=== PATIENT | female | born 1955 | race Caucasian/White ===

== ENCOUNTER → 2017-01-02 | Outpatient (CLI) | payer MEDICARE, MEDICAID ==
[2017-01-02 12:46] LABS: Basophils # (A) 0.1 k/uL (0-0.2); Basophils % (A) 1 %; CH 31.9; CHCM 32.6; Eosinophils # (A) 0.4 k/uL (0-0.7); Eosinophils % (A) 5 %; HCT 44.5 % (34.0-46.0); HDW 2.65; HGB 14.7 gm/dL (11.4-16.0); Luc # (Auto) 0.26; Luc % (Auto) 3; Lymphocytes # (A) 1.7 k/uL (1.0-4.8); Lymphocytes % (A) 19 %; MCH 32.5 pg (25.0-35.0); MCHC 33.1 g/dL (31.0-37.0); MCV 98.2 fL (80.0-100.0); Mean Platelet Volume 7.2; Monocytes # (A) 0.3 k/uL (0-1.0); Monocytes % (A) 4 %; Neutrophils # (A) 5.9 k/uL (1.3-7.7); Neutrophils % (A) 68 %; RBC 4.53 m/uL (3.80-5.40); RDW 13.3 % (11.5-15.5); WBC 8.6 k/uL (3.8-10.6); WBC (Perox) 8.66
[2017-01-02 12:57] LABS: ALT 49 U/L (9-52); AST 38 U/L (14-36); Alkaline Phosphatase 90 U/L (38-126); Anion Gap 9 mmol/L; Blood Urea Nitrogen 13 mg/dL (7-17); Calcium 9.8 mg/dL (8.4-10.2); Carbon Dioxide 31 mmol/L (22-30); Chloride 97 mmol/L (98-107); Glucose 89 mg/dL (74-99); Non-African American GFR(MDRD) >60 (>60 ml/min/1.73 sqM); Potassium 4.6 mmol/L (3.5-5.1); Sodium 137 mmol/L (137-145); Total Bilirubin 0.4 mg/dL (0.2-1.3)
== END | disposition home or self-care (01) ==
LOC: LABWHC1 12:09
PROVIDERS: ATTEND Family Medicine
DX: E03.9 Hypothyroidism, unspecified (principal); E55.9 Vitamin D deficiency, unspecified; M79.7 Fibromyalgia
CPT/HCPCS: 36415; 80053; 82306; 84443; 85025

== ENCOUNTER → 2017-01-14 | Outpatient (CLI) | payer MEDICARE, MEDICAID ==
--- NOTE | 2017-01-14 17:01 | BD ---
EXAMINATION TYPE: MG DEXA axial skeleton. DATE OF EXAM: 01/14/2017 4:03 PM COMPARISON: 2013 CLINICAL HISTORY: 61-year-old female POST MENOPAUSAL Height: 5'2 Weight: 103 FRAX RISK QUESTIONS: Alcohol (3 or more units per day): no Family History (Parent hip fracture): no Glucocorticoids (More than 3mos): no (Ex: prednisone, prednisolone, methylprednisolone, dexamethasone, and hydrocortisone). History of Fracture in Adulthood: yes Secondary Osteoporosis: 1. Type 1 Diabetes: no 2. Hyperthyroidism: no 3. Menopause before 45: yes 4. Malnutrition: yes 5. Chronic liver disease: no Rheumatoid Arthritis: no Current Tobacco Use: no RISK FACTORS HISTORY OF: History of Wrist Fracture: When: child Family History of Osteoporosis: Postmenopausal woman: Poor Health: MEDICATIONS: Thyroid Medications: Which medication: Levothyroxine How Lon years Osteoporosis Medications: Which medication: Other nasal spray How Lon years Additional Medications: heart medicine, antidepressant, neurontin, pain Additional History: EXAM MEASUREMENTS: Bone mineral densitometry was performed using the [facility]. Bone mineral density as measured about the Lumbar spine is: ----- L1-L4(G/cm2): 0.817 T Score Values are as follows: ----- L2: -3.2 ----- L3: -3.1 ----- L4: -2.9 ----- L1-L4: -3.0 Bone mineral density has: Decreased -5.8% since study of: 01/22/2014 Bone mineral density about the R hip (g/cm2): 0.513 Bone mineral density about the L hip (g/cm2): 0.577 T Score values are as follows: -----R Neck: -3.8 -----L Neck: -3.3 -----R Intertrochanter: -4.0 -----L Intertrochanter: -4.1 Bone mineral density has: Decreased -0.9% since study of: 01/22/2014 IMPRESSION: Osteoporosis as indicated by T score values in the lumbar spine and both hips. There is increased fracture risk and therapy is usually indicated based on age. Re-Screen 1-2 years. NOTE: T-SCORE=SD OF THE YOUNG ADULT MEAN.
--- NOTE | 2017-01-15 11:27 | MM ---
Reason for exam: screening (asymptomatic). Last mammogram was performed 3 years and 6 months ago. History: Patient is postmenopausal and had first child at age 32. 2 cyst aspirations of the left breast. 3 cyst aspirations of the right breast. Excisional biopsy of the left breast. Took estrogen for 5 months. Physical Findings: A clinical breast exam by your physician is recommended on an annual basis and results should be correlated with mammographic findings. MG Screening Mammo w CAD Bilateral CC and MLO view(s) were taken. Prior study comparison: July 09, 2013, bilateral digital screening mammo w/CAD. January 26, 2010, bilateral digital screening mammogram. There are scattered fibroglandular densities. There is no discrete abnormality. No significant changes when compared with prior studies. ASSESSMENT: Negative, BI-RAD 1 RECOMMENDATION: Routine screening mammogram of both breasts in 1 year.
== END | disposition home or self-care (01) ==
LOC: RADMAMWWP 15:16
PROVIDERS: ATTEND Family Medicine
DX: Z12.31 Encounter for screening mammogram for malignant neoplasm of breast (principal); M81.0 Age-related osteoporosis without current pathological fracture; Z78.0 Asymptomatic menopausal state
CPT/HCPCS: 77080; G0202; 99214

== ENCOUNTER → 2017-02-12 | Outpatient (CLI) | payer MEDICARE, MEDICAID | END | disposition home or self-care (01) | LOC: LABWHC1 08:40 | PROVIDERS: ATTEND Family Medicine | DX: E53.8 Deficiency of other specified B group vitamins (principal); Z13.220 Encounter for screening for lipoid disorders; Z90.3 Acquired absence of stomach [part of] | CPT/HCPCS: 36415; 80061; 82607; 82746 ==

== ENCOUNTER → 2017-02-14 | Outpatient (CLI) | payer MEDICARE, MEDICAID | END | disposition home or self-care (01) | LOC: LABWHC1 06:50 | PROVIDERS: ATTEND Family Medicine | DX: Z48.815 Encounter for surgical aftercare following surgery on the digestive system (principal); Z90.3 Acquired absence of stomach [part of] | CPT/HCPCS: 36415; 82747 ==

== ENCOUNTER 2017-04-18 09:52 | Emergency (ER) | payer MEDICARE, MEDICAID ==
[2017-04-18 10:02] VITALS: RESP 18
[2017-04-18] MEDS ORDERED: HYDROcodone/APAP 10-325MG 1 EACH TAB PO ONE (10:17)
--- NOTE | 2017-04-18 10:46 | ED ---
Fall HPI - General Chief Complaint: Fall Stated Complaint: Fall Time Seen by Provider: 04/18/17 10:13 Source: patient, RN notes reviewed, old records reviewed Mode of arrival: wheelchair - History of Present Illness Initial Comments: This is a pleasant 61-year-old female presenting to the emergency department after falling while in the hospital after leaving IV treatment. Patient reports that he fell, hit the left side of her face and cheek, but her lower lip and has an pain and swelling over the left elbow. Patient reports that she fell on her knees as well and reports some bruising, but was able to walk shortly afterwards. Patient was then transported from the [facility] to the emergency department. Patient states that she did not lose consciousness. She denies any specific headache. Patient states that she has no neck pain as well. Patient reports normal sensation over the wrist and hand. - Related Data Home Medications Medication Instructions Recorded Confirmed Cyclobenzaprine [Flexeril] 10 mg PO TID PRN 03/02/14 04/19/17 Diclofenac Potassium [Cataflam] 50 mg PO BID 03/02/14 04/19/17 Dicyclomine [Bentyl] 10 mg PO QID PRN 03/02/14 04/19/17 Fluticasone/Salmeterol [Advair 1 puff INHALATION RT-BID 03/02/14 04/19/17 500-50 Diskus] HYDROcodone/APAP 10-325MG [Dorena 1 tab PO QID 03/02/14 04/19/17 10-325] LORazepam [Ativan] 1 mg PO BID 03/02/14 04/19/17 Levalbuterol Hfa Inhaler [Xopenex 1 - 2 puff INHALATION RT-QID 03/02/14 04/19/17 Hfa Inhaler] Levothyroxine Sodium [Synthroid] 100 mcg PO DAILY 03/02/14 04/19/17 Prochlorperazine [Compazine] 10 mg PO Q8H PRN 03/02/14 04/19/17 Tiotropium 18 Mcg/Puff [Spiriva] 1 cap INHALATION RT-DAILY 03/02/14 04/19/17 traZODone HCL [Desyrel] 100 mg PO HS 03/02/14 04/19/17 Butalb/Asprin/Caff 50-325-40Mg 1 - 3 cap PO Q4HR PRN 09/14/15 04/19/17 [Fiorinal 50-325-40 MG] Calcitonin,[place],Synthetic 1 spray NS DAILY 09/14/15 04/19/17 [Miacalcin] DULoxetine HCL [Cymbalta] 60 mg PO QAM 09/14/15 04/19/17 Ibuprofen [Motrin] 200 - 400 mg PO Q6HR PRN 09/14/15 04/19/17 DULoxetine HCL [Cymbalta] 30 mg PO W/SUPPER 02/23/16 04/19/17 Gabapentin [Neurontin] 200 mg PO TID 06/15/16 04/19/17 Metoprolol Tartrate [Lopressor] 25 mg PO BID 04/18/17 04/19/17 Previous Rx's Medication Instructions Recorded Nystatin 100,000 Unit/ml Susp 500,000 unit PO QID #28 cup 09/21/16 [Mycostatin Oral Susp] HYDROcodone/APAP 10-325MG [[place] 1 tab PO Q4HR PRN #15 tab 04/18/17 10-325] Allergies Allergy/AdvReac Type Severity Reaction Status Date / Time metoclopramide HCl Allergy Severe Hallucinati Verified 04/19/17 09:21 [From Reglan] ons Penicillins Allergy Severe Rash/Hives Verified 04/19/17 09:21 piperacillin sodium Allergy Severe Unknown Verified 04/19/17 09:21 [From Zosyn] Sulfa (Sulfonamide Allergy Severe hives Verified 04/19/17 09:21 Antibiotics) tazobactam sodium Allergy Severe Unknown Verified 04/19/17 09:21 [From Zosyn] cimetidine Allergy Intermediate Rash/Hives Verified 04/19/17 09:21 cimetidine HCl [From Tagamet] Allergy Rash/Hives Verified 04/19/17 09:21 Review of Systems ROS Statement: Those systems with pertinent positive or pertinent negative responses have been documented in the HPI. ROS Other: All systems not noted in ROS Statement are negative. Past Medical History Past Medical History: Heart Failure, COPD, Fibromyalgia, GERD/Reflux, GI Bleed, Musculoskeletal Disorder, Osteoarthritis (OA), Pneumonia, Thyroid Disorder Additional Past Medical History / Comment(s): HX OF PEPTIC ULCER DISEASE 1992, 2006 DEVELOPED MALABSORPTION SYNDROME/DIARRHEA. Vitamin D deficiency. Migraines. Cardiomyopathy , protein calorie malnutrition. Cachexia. Osteoporosis. DDD cervical- lumbar spine. Recurrent Pneumonia, Bacterial Infections. MILD STROKE 2006 EST. 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 ON IV TPPN DAILY [id number]. History of Any Multi-Drug Resistant Organisms: MRSA Date of last positivie culture/infection: 2013 MDRO Source:: RT SUBCLAVIAN LINE AND SPUTUM CULTURE Past Surgical History: Adenoidectomy, Tonsillectomy Additional Past Surgical History / Comment(s): STOMACH SURGERY X 4 INCLUDES PARTAIL GASTRECTOMY, FOLLOWED BY TOTAL GASTRECTOMY/ESOPHAGECTOMY, FOLLOWED BY ANASTOMOSIS USING PART OF HER COLON,adhesion, reconstructed with bowel, Maria catheter placement and removal multiple times, PICC LINE 09/19/15. R SC mediport 06/2016 Past Anesthesia/Blood Transfusion Reactions: Motion Sickness Past Psychological History: Depression Smoking Status: Former smoker Past Alcohol Use History: None Reported Past Drug Use History: None Reported - Past Family History Mother Family Medical History: COPD, Myocardial Infarction ([place]) Father Family Medical History: Renal Disease Sister(s) Family Medical History: Respiratory Disorder Brother(s) Family Medical History: No Reported History Daughter(s) Family Medical History: No Reported History General Exam - General Exam Comments Initial Comments: Is a pleasant 61-year-old female. Patient does not appear to be in any acute distress. Limitations: no limitations General appearance: alert, in no apparent distress Head exam: Present: atraumatic, normocephalic, normal inspection Eye exam: Present: PERRL, EOMI, periorbital tenderness (Inferior left orbit tenderness.), other (Patient has some swelling and bruising over the left maxilla. No evidence of open lacerations. Asians tender to palpation over the inferior left orbit.). Absent: normal appearance, scleral icterus, conjunctival injection, periorbital swelling ENT exam: Present: mucous membranes moist, other (Patient has a 1 cm laceration over the left lower inner lip.). Absent: normal exam, normal oropharynx ( Patient wearis dentures.) Neck exam: Present: normal inspection. Absent: tenderness, meningismus, lymphadenopathy Respiratory exam: Present: normal lung sounds bilaterally. Absent: respiratory distress, wheezes, rales, rhonchi, stridor Cardiovascular Exam: Present: regular rate, normal rhythm, normal heart sounds. Absent: systolic murmur, diastolic murmur, rubs, gallop, clicks GI/Abdominal exam: Present: soft, normal bowel sounds. Absent: distended, tenderness, guarding, rebound, rigid Extremities exam: Present: normal capillary refill. Absent: normal inspection, full ROM, tenderness, pedal edema, joint swelling, calf tenderness Left Upper Arm exam: Present: normal inspection, full ROM Elbow exam: Present: tenderness, swelling (She has significant tenderness and swelling over the olecranon process.), ecchymosis. Absent: normal inspection, full ROM Forearm Wrist exam: Present: normal inspection, full ROM Hand Wrist exam: Present: normal inspection, full ROM Back exam: Present: normal inspection, full ROM Neurological exam: Present: alert, oriented X3, CN II-XII intact Psychiatric exam: Present: normal affect, normal mood Skin exam: Present: warm, dry, intact, normal color. Absent: rash Course Vital Signs 04/18/17 04/18/17 04/18/17 09:59 12:07 13:03 Temperature 97.0 F L 97.1 F L Pulse Rate 71 78 70 Respiratory 18 18 18 Rate Blood Pressure 113/53 101/57 98/54 O2 Sat by Pulse 99 96 97 Oximetry Procedures - Orthopedic Splinting/Casting Injury #1 Side: left Upper Extremity Immobilizer: posterior splint (in 45 degree angle. ) Medical Decision Making - Medical Decision Making This is a pleasant 61-year-old female presenting to the emergency department after tripping and falling while in the hospital after leaving IV treatment. Patient reports that he fell, hit the left side of her face and cheek, but her lower lip and has an pain and swelling over the left elbow. Patient reports that she fell on her knees as well and reports some bruising, but was able to walk shortly afterwards. Patient was then transported from the [facility] to the emergency department. Patient states that she did not lose consciousness. She was given Dorena 10 for pain. Patient received a CT facial bone and brain. Also left elbow x-rays. CT facial bornes and brain and negative for any acute process. Patient elbow xray has 1.6cm displacement of olecranon process. Discussed case with Olya Tabares, orthopedic PA. She adbised to place in a posterior 45 degree angle splint to cause less tension over triceps tendons. Patient needs to follow up with Dr. Gottlieb tomorrow. Patient agrees to treatent plan and was placed in the splint. Patient will be discharged with Pain medication. - Radiology Data Radiology results: report reviewed Intra-articular olecranon fracture discharged by 1.67 m. Large overlying soft tissue hematoma. Disposition Clinical Impression: Olecranon fracture, Facial contusion Disposition: HOME SELF-CARE Condition: Good Instructions: Fall Prevention for Older Adults (ED) Additional Instructions: Patient denies to follow-up with orthopedic physician as is possible. Return to the emergency department if any alarming signs or symptoms occur. Prescriptions: HYDROcodone/APAP 10-325MG [Dorena 10-325] 1 tab PO Q4HR PRN #15 tab PRN Reason: Pain Referrals: Javier Ledesma MD [Primary Care Provider] - 1-2 days Time of Disposition: 12:41
--- NOTE | 2017-04-18 11:41 | XR ---
EXAMINATION TYPE: XR elbow complete LT DATE OF EXAM: 04/18/2017 COMPARISON: NONE HISTORY: 61-year-old female fall and left elbow pain TECHNIQUE: 3 views FINDINGS: There is an intra-articular fracture of the olecranon with 1.6 cm of distraction. Large ove rlying soft tissue hematoma. Underlying elbow joint effusion suggested. IMPRESSION: Intra-articular olecranon fracture distracted by 1.6 cm. Large overlying soft tissue hematoma.
--- NOTE | 2017-04-18 11:54 | CT ---
EXAMINATION TYPE: CT brain wo con DATE OF EXAM: 04/18/2017 COMPARISON: 04/07/2011 HISTORY: 61-year-old female with pain after fall TECHNIQUE: Examination was done in axial plane without intravenous contrast. Coronal and sagittal r econstructions performed. CT DLP: 1121.01 mGycm Automated exposure control for dose reduction was used. FINDINGS: There is no evidence of acute intracranial hemorrhage, acute ischemic changes, mass, mass-effect, or extra-axial fluid collection. There is no effacement of cerebral sulci or basal subarachnoid cister ns. There is no hydrocephalus. There is no midline shift. Manzo-white matter distinction is preserv ed. There is moderate generalized supratentorial volume loss. Mucosal thickening within the mid right ethmoid air cells. Mastoid air cells well pneumatized. Orbits and globes are intact. IMPRESSION: No acute intracranial abnormality seen. Moderate generalized atrophy. Facial bones reported separately.
--- NOTE | 2017-04-18 12:07 | CT ---
EXAMINATION TYPE: CT facial bones wo con DATE OF EXAM: 04/18/2017 COMPARISON: NONE HISTORY: 60-year-old female with fall and hit left facial area. TECHNIQUE: Contiguous axial scanning of the facial bones without IV contrast. Coronal reconstructions performed. CT DLP: 587.45 mGycm Automated exposure control for dose reduction was used. FINDINGS: Focal opacification of a mid right ethmoid air cell. Otherwise, paranasal sinuses are clear. Orbits and globes are intact No nasal bone, facial bone, or mandibular fracture seen. Degenerative changes at the right TMJ IMPRESSION: RIGHT TMJ OA. NO ACUTE FACIAL BONE FRACTURE.
[2017-04-18] MEDS ORDERED: ACET/COD 300 MG/30 MG STARTER PACK 6 TAB BTL PO STA (12:59)
[2017-04-18 13:08] VITALS: BP 98/54; PULSE 70; TEMP 97.1
== END 2017-04-18 13:09 | disposition home or self-care (01) ==
LOC: EC 09:52
DX: S52.022A Displaced fracture of olecranon process without intraarticular extension of left ulna, initial encounter for closed fracture (principal); S01.511A Laceration without foreign body of lip, initial encounter; S00.83XA Contusion of other part of head, initial encounter; J44.9 Chronic obstructive pulmonary disease, unspecified; M19.90 Unspecified osteoarthritis, unspecified site; M81.0 Age-related osteoporosis without current pathological fracture; E07.9 Disorder of thyroid, unspecified; F32.9 Major depressive disorder, single episode, unspecified; M79.7 Fibromyalgia; Z87.891 Personal history of nicotine dependence; Z88.0 Allergy status to penicillin; Z88.2 Allergy status to sulfonamides; Z88.8 Allergy status to other drugs, medicaments and biological substances; Z79.51 Long term (current) use of inhaled steroids; Z79.891 Long term (current) use of opiate analgesic; Z79.899 Other long term (current) drug therapy; W01.198A Fall on same level from slipping, tripping and stumbling with subsequent striking against other object, initial encounter; Y92.239 Unspecified place in hospital as the place of occurrence of the external cause
CPT/HCPCS: 99285 ×2; 29105 ×2; 73080; 70486; 70450; 96365; J1335; J1642

== ENCOUNTER 2017-06-13 10:14 | Inpatient (IN) | payer MEDICARE, MEDICAID ==
[2017-06-13] MEDS ORDERED: IBUPROFEN 600 MG TAB PO STA (10:21)
[2017-06-13] MEDS ORDERED: SODIUM CHLORIDE 0.9% 1,000 ML IV STA ×2 (10:21)
[2017-06-13] MEDS ORDERED: ACETAMINOPHEN TAB 500 MG TAB PO STA (10:21)
[2017-06-13] MEDS ORDERED: IPRATROPIUM-ALBUTEROL 3 ML NEB INHALATION STA (10:22)
[2017-06-13] MEDS ORDERED: LEVOFLOXACIN 750MG-D5W PMX 750 MG in DEXTROSE/WATER 1 150ML.BAG IVPB STA (10:22)
--- NOTE | 2017-06-13 10:23 | ED ---
General Adult HPI - General Chief complaint: Fever Stated complaint: SOB, FLU LIKE SYMPTOMS Time Seen by Provider: 06/13/17 10:21 Source: patient, RN notes reviewed, old records reviewed Mode of arrival: wheelchair Limitations: no limitations - History of Present Illness Initial comments: This is a 58-year-old female here with severe shortness of breath, increasing and worsening shortness of breath. She notes fever and elevated heart rate. Patient's 4 strength in medical clinical condition, difficulty breathing. Patient denies any travel history, no significant recent hospitalizations. Because of Care medical history for breathing issues - Related Data Home Medications Medication Instructions Recorded Confirmed Cyclobenzaprine [Flexeril] 10 mg PO BID 03/02/14 06/13/17 Diclofenac Potassium [Cataflam] 50 mg PO TID 03/02/14 06/13/17 Fluticasone/Salmeterol [Advair 1 puff INHALATION RT-DAILY 03/02/14 06/13/17 500-50 Diskus] Levalbuterol Hfa Inhaler [Xopenex 1 - 2 puff INHALATION RT-QID 03/02/14 06/13/17 Hfa Inhaler] Levothyroxine Sodium [Synthroid] 100 mcg PO DAILY 03/02/14 06/13/17 Tiotropium 18 Mcg/Puff [Spiriva] 1 cap INHALATION RT-DAILY 03/02/14 06/13/17 traZODone HCL [Desyrel] 100 mg PO HS 03/02/14 06/13/17 Butalb/Asprin/Caff 50-325-40Mg 1 - 2 cap PO Q4HR PRN MDD 6 09/14/15 06/13/17 [Fiorinal 50-325-40 MG] tablets in 24 hours Calcitonin,[place],Synthetic 1 spray NS DAILY 09/14/15 06/13/17 [Miacalcin] DULoxetine HCL [Cymbalta] 60 mg PO QAM 09/14/15 06/13/17 DULoxetine HCL [Cymbalta] 30 mg PO HS 02/23/16 06/13/17 Gabapentin [Neurontin] 100 mg PO DAILY 06/15/16 06/13/17 Metoprolol Tartrate [Lopressor] 25 mg PO BID 04/18/17 06/13/17 Aspirin 81 mg PO DAILY 06/13/17 06/13/17 Biotin 10 mg PO DAILY 06/13/17 06/13/17 Cholecalciferol [Vitamin D3] 3,000 unit PO DAILY 06/13/17 06/13/17 Cyanocobalamin (Vitamin B-12) 1,000 mcg PO DAILY 06/13/17 06/13/17 [Vitamin B-12] Ergocalciferol (Vitamin D2) 50,000 unit PO Q30D 06/13/17 06/13/17 [Vitamin D2] Fluticasone Nasal [place] [Flonase 1 spray EA NOSTRIL DAILY PRN 06/13/17 06/13/17 Nasal [place]] Folic Acid 1 mg PO DAILY 06/13/17 06/13/17 Gabapentin [Neurontin] 200 mg PO DAILY@1400 06/13/17 06/13/17 Gabapentin [Neurontin] 300 mg PO DAILY@1800 06/13/17 06/13/17 HYDROcodone/APAP 10-325MG [[place] 1 tab PO TID PRN 06/13/17 06/13/17 10-325] LORazepam [Ativan] 1 mg PO BID PRN 06/13/17 06/13/17 Magnesium Oxide [Mag-Ox] 400 mg PO DAILY 06/13/17 06/13/17 Montelukast [Singulair] 10 mg PO HS 06/13/17 06/13/17 Multivitamins, Thera [Multivitamin 1 tab PO DAILY 06/13/17 06/13/17 (formulary)] Nystatin 100,000Unit/gm Cream 1 applic TOPICAL TID PRN 06/13/17 06/13/17 [Mycostatin Cream] Allergies Allergy/AdvReac Type Severity Reaction Status Date / Time metoclopramide HCl Allergy Severe Hallucinati Verified 06/13/17 11:04 [From Reglan] ons Penicillins Allergy Severe Rash/Hives Verified 06/13/17 11:04 piperacillin sodium Allergy Severe Unknown Verified 06/13/17 11:04 [From Zosyn] Sulfa (Sulfonamide Allergy Severe hives Verified 06/13/17 11:04 Antibiotics) tazobactam sodium Allergy Severe Unknown Verified 06/13/17 11:04 [From Zosyn] cimetidine Allergy Intermediate Rash/Hives Verified 06/13/17 11:04 cimetidine HCl [From Tagamet] Allergy Rash/Hives Verified 06/13/17 11:04 Review of Systems ROS Statement: Those systems with pertinent positive or pertinent negative responses have been documented in the HPI. ROS Other: All systems not noted in ROS Statement are negative. Past Medical History Past Medical History: Heart Failure, COPD, Fibromyalgia, GERD/Reflux, GI Bleed, Musculoskeletal Disorder, Osteoarthritis (OA), Pneumonia, Thyroid Disorder Additional Past Medical History / Comment(s): HX OF PEPTIC ULCER DISEASE 1992, 2006 DEVELOPED MALABSORPTION SYNDROME/DIARRHEA. Vitamin D deficiency. Migraines. Cardiomyopathy , protein calorie malnutrition. Cachexia. Osteoporosis. DDD cervical- lumbar spine. Recurrent Pneumonia, Bacterial Infections. MILD STROKE 2006 EST. 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 ON IV TPPN DAILY [id number]. History of Any Multi-Drug Resistant Organisms: MRSA Date of last positivie culture/infection: 2013 MDRO Source:: RT SUBCLAVIAN LINE AND SPUTUM CULTURE Past Surgical History: Adenoidectomy, Tonsillectomy Additional Past Surgical History / Comment(s): STOMACH SURGERY X 4 INCLUDES PARTAIL GASTRECTOMY, FOLLOWED BY TOTAL GASTRECTOMY/ESOPHAGECTOMY, FOLLOWED BY ANASTOMOSIS USING PART OF HER COLON,adhesion, reconstructed with bowel, Maria catheter placement and removal multiple times, PICC LINE 09/19/15. R SC mediport 06/2016 Past Anesthesia/Blood Transfusion Reactions: Motion Sickness Past Psychological History: Depression Smoking Status: Former smoker Past Alcohol Use History: None Reported Past Drug Use History: None Reported - Past Family History Mother Family Medical History: COPD, Myocardial Infarction ([place]) Father Family Medical History: Renal Disease Sister(s) Family Medical History: Respiratory Disorder Brother(s) Family Medical History: No Reported History Daughter(s) Family Medical History: No Reported History General Exam Limitations: no limitations General appearance: alert, anxious, in distress, cachectic Head exam: Present: atraumatic, normocephalic, normal inspection Eye exam: Present: normal appearance, PERRL, EOMI. Absent: scleral icterus, conjunctival injection, periorbital swelling ENT exam: Present: normal exam, mucous membranes moist Neck exam: Present: normal inspection. Absent: tenderness, meningismus, lymphadenopathy Respiratory exam: Present: respiratory distress, wheezes, accessory muscle use, decreased breath sounds, prolonged expiratory. Absent: rhonchi, stridor Cardiovascular Exam: Present: normal rhythm, tachycardia, normal heart sounds. Absent: systolic murmur, diastolic murmur, rubs, gallop, clicks GI/Abdominal exam: Present: soft, normal bowel sounds. Absent: distended, tenderness, guarding, rebound, rigid Extremities exam: Present: normal inspection, full ROM, normal capillary refill. Absent: tenderness, pedal edema, joint swelling, calf tenderness Back exam: Present: normal inspection Neurological exam: Present: alert, oriented X3, CN II-XII intact Psychiatric exam: Present: normal affect, normal mood Skin exam: Present: warm, dry, intact, normal color. Absent: rash Course Vital Signs 06/13/17 06/13/17 06/13/17 10: 10:45 10:59 Temperature 103.3 F H Pulse Rate 128 H 120 H 130 H Respiratory 18 Rate Blood Pressure 131/61 O2 Sat by Pulse 86 L Oximetry 06/13/17 11:31 Temperature 99.8 F H Pulse Rate 119 H Respiratory 24 Rate Blood Pressure 106/64 O2 Sat by Pulse 97 Oximetry - Reevaluation(s) Reevaluation #1: 06/13/17 11:57 Patient is no improvement after prolonged breathing treatment once placed on BiPAP patient is able to rest comfortably Medical Decision Making - Medical Decision Making 61 female year with pneumonia. Severe COPD exacerbation respiratory failure and shortness of breath secondary hypoxia. Patient be admitted for IV antibiotics to continue BiPAP. - Lab Data Result diagrams: 06/13/17 10:53 06/13/17 10:53 Lab Results 06/13/17 06/13/17 06/13/17 Range/Units 10:53 10:53 10:53 WBC 14.6 H (3.8-10.6) k/uL RBC 4.21 (3.80-5.40) m/uL Hgb 13.5 (11.4-16.0) gm/dL Hct 39.3 (34.0-46.0) % MCV 93.3 (80.0-100.0) fL MCH 32.0 (25.0-35.0) pg MCHC 34.3 (31.0-37.0) g/dL RDW 13.5 (11.5-15.5) % Plt Count 214 (150-450) k/uL Neutrophils % 95 % Lymphocytes % 2 % Monocytes % 2 % Eosinophils % 0 % Basophils % 0 % Neutrophils # 13.8 H (1.3-7.7) k/uL Lymphocytes # 0.3 L (1.0-4.8) k/uL Monocytes # 0.3 (0-1.0) k/uL Eosinophils # 0.0 (0-0.7) k/uL Basophils # 0.0 (0-0.2) k/uL PT (9.0-12.0) sec INR (<1.2) APTT (22.0-30.0) sec Sodium 124 L (137-145) mmol/L Potassium 3.4 L (3.5-5.1) mmol/L Chloride 90 L (98-107) mmol/L Carbon Dioxide 23 (22-30) mmol/L Anion Gap 11 mmol/L BUN 8 (7-17) mg/dL Creatinine 0.39 L (0.52-1.04) mg/dL Est GFR (MDRD) Af Amer >60 (>60 ml/min/1.73 sqM) Est GFR (MDRD) Non-Af >60 (>60 ml/min/1.73 sqM) Glucose 144 H (74-99) mg/dL Calcium 8.5 (8.4-10.2) mg/dL Phosphorus 1.7 L (2.5-4.5) mg/dL Magnesium 1.4 L (1.6-2.3) mg/dL Total Bilirubin 0.4 (0.2-1.3) mg/dL AST 51 H (14-36) U/L ALT 39 (9-52) U/L Alkaline Phosphatase 132 H (38-126) U/L Total Creatine Kinase 69 (30-135) U/L Total Protein 5.8 L (6.3-8.2) g/dL Albumin 3.3 L (3.5-5.0) g/dL 06/13/17 Range/Units 10:53 WBC (3.8-10.6) k/uL RBC (3.80-5.40) m/uL Hgb (11.4-16.0) gm/dL Hct (34.0-46.0) % MCV (80.0-100.0) fL MCH (25.0-35.0) pg MCHC (31.0-37.0) g/dL RDW (11.5-15.5) % Plt Count (150-450) k/uL Neutrophils % % Lymphocytes % % Monocytes % % Eosinophils % % Basophils % % Neutrophils # (1.3-7.7) k/uL Lymphocytes # (1.0-4.8) k/uL Monocytes # (0-1.0) k/uL Eosinophils # (0-0.7) k/uL Basophils # (0-0.2) k/uL PT 10.8 (9.0-12.0) sec INR 1.1 (<1.2) APTT 35.6 H (22.0-30.0) sec Sodium (137-145) mmol/L Potassium (3.5-5.1) mmol/L Chloride (98-107) mmol/L Carbon Dioxide (22-30) mmol/L Anion Gap mmol/L BUN (7-17) mg/dL Creatinine (0.52-1.04) mg/dL Est GFR (MDRD) Af Amer (>60 ml/min/1.73 sqM) Est GFR (MDRD) Non-Af (>60 ml/min/1.73 sqM) Glucose (74-99) mg/dL Calcium (8.4-10.2) mg/dL Phosphorus (2.5-4.5) mg/dL Magnesium (1.6-2.3) mg/dL Total Bilirubin (0.2-1.3) mg/dL AST (14-36) U/L ALT (9-52) U/L Alkaline Phosphatase (38-126) U/L Total Creatine Kinase (30-135) U/L Total Protein (6.3-8.2) g/dL Albumin (3.5-5.0) g/dL - Radiology Data Radiology results: report reviewed (Chest x-rays positive for pneumonia), image reviewed Critical Care Time Critical Care Time: Yes Total Critical Care Time: 31 Disposition Clinical Impression: Pneumonia, COPD (chronic obstructive pulmonary disease), Sepsis, Hypoxia Disposition: ADMITTED IP TO [facility] Condition: Serious Referrals: Javier Ledesma MD [Primary Care Provider] - 1-2 days
[2017-06-13 11:05] LABS: Basophils % (A) 0 %; CH 31.4; CHCM 33.8; Eosinophils % (A) 0 %; HCT 39.3 % (34.0-46.0); HGB 13.5 gm/dL (11.4-16.0); Luc # (Auto) 0.12; Luc % (Auto) 1; Lymphocytes # (A) 0.3 k/uL (1.0-4.8); Lymphocytes % (A) 2 %; MCHC 34.3 g/dL (31.0-37.0); MCV 93.3 fL (80.0-100.0); Monocytes # (A) 0.3 k/uL (0-1.0); Monocytes % (A) 2 %; Neutrophils # (A) 13.8 k/uL (1.3-7.7); Neutrophils % (A) 95 %; RBC 4.21 m/uL (3.80-5.40); RDW 13.5 % (11.5-15.5); WBC 14.6 k/uL (3.8-10.6); WBC (Perox) 14.59
[2017-06-13] MEDS ORDERED: LORazepam 2 MG/ML INJ IV STA (11:05)
[2017-06-13] MEDS ORDERED: MORPHINE SULFATE 4 MG/ML SYRINGE IVP STA (11:05)
[2017-06-13 11:13] LABS: INR 1.1 (<1.2); Partial Thromboplastin Time 35.6 sec (22.0-30.0); Prothrombin Time 10.8 sec (9.0-12.0)
[2017-06-13 11:15] LABS: ALT 39 U/L (9-52); AST 51 U/L (14-36); Alkaline Phosphatase 132 U/L (38-126); Anion Gap 11 mmol/L; Blood Urea Nitrogen 8 mg/dL (7-17); Calcium 8.5 mg/dL (8.4-10.2); Carbon Dioxide 23 mmol/L (22-30); Chloride 90 mmol/L (98-107); Glucose 144 mg/dL (74-99); Magnesium 1.4 mg/dL (1.6-2.3); Non-African American GFR(MDRD) >60 (>60 ml/min/1.73 sqM); Phosphorus 1.7 mg/dL (2.5-4.5); Potassium 3.4 mmol/L (3.5-5.1); Sodium 124 mmol/L (137-145); Total Bilirubin 0.4 mg/dL (0.2-1.3); Total Protein 5.8 g/dL (6.3-8.2)
--- NOTE | 2017-06-13 11:33 | XR ---
EXAMINATION TYPE: XR chest 2V DATE OF EXAM: 06/13/2017 COMPARISON: 03/27/2017 TECHNIQUE: PA and lateral views submitted. HISTORY: Shortness of breath FINDINGS: Hyperinflation suggests COPD. Right-sided central venous catheter or Mediport the tip overlying the S VC. Prominence the right tracheal stripe. Surgical clip in the epigastrium. Coarsened interstitium wi th vague infiltrate or nodule in right upper lobe. Additional multiple tiny nodules bilaterally are s uggested. Lucency overlying the upper airway is nonspecific. This was seen on previous exam and may b e related to air within the esophagus. IMPRESSION: 1. COPD with a micronodular pattern. There is a hiatal hernia and prominent lucency in the upper medi astinum. Stable dating back to 2011 may be related to gastric pull-through procedure, dilated esophag us or gastric diverticulum in the differential correlate with the patient's history and with CT if ne cessary. 2. Vague infiltrate right upper lobe. Nodularity or early pneumonia in the differential.
[2017-06-13] MEDS ORDERED: PNEUMONIA PROTOCOL UTILIZED 1 EACH MISC PO PRN (11:54)
[2017-06-13] MEDS ORDERED: CEFEPIME 2 GM in SODIUM CHLORIDE 0.9% 50 ML IVPB STA (11:58)
[2017-06-13 12:01] LABS: Troponin I 0.135 ng/mL (0.000-0.034)
[2017-06-13] MEDS: IPRATROPIUM-ALBUTEROL 3 ML NEB INHALATION SCH ×2 (12:05→15:25)
[2017-06-13] MEDS ORDERED: ASPIRIN 81 MG PO STA (13:04)
[2017-06-13] MEDS: LORazepam 2 MG/ML INJ IV PRN ×2 (13:11→18:45)
[2017-06-13] MEDS: CEFEPIME 2 GM in SODIUM CHLORIDE 0.9% 50 ML IVPB SCH (13:19)
[2017-06-13] MEDS ORDERED: FLUTICASONE 50MCG/SPRAY NASAL 16GM EA NOSTRIL PRN (15:17)
[2017-06-13] MEDS ORDERED: LORazepam 1 MG TAB PO PRN (15:17)
[2017-06-13] MEDS ORDERED: BUTALB/APAP/CAFF 50-325-40MG TAB PO PRN (15:17)
--- NOTE | 2017-06-13 15:23 | P.HPIM ---
History of Present Illness H&P Date: 06/13/17 Chief Complaint: Shortness of breath wheezing This is a [id number] pleasant female patient of Dr. Javier Ledesma and Dr. Rader with known history of COPD, CVA, fibromyalgia, GERD, GI bleed, or she tried this, pneumonia and a previous line infection treated by Dr. Cruz last 09/14/2015, she was septic at that time required IV antibiotics with sepsis from her right chest wall cellulitis . Her last admission was September 2016 for left-sided pneumonia with sepsis, possible gram-negative pneumonia possible septic shock, no sputum cultures isolated during that last admission. Patient is known to have history of malabsorption she had partial gastrectomy followed by total gastrectomy with esophagectomy secondary to peptic ulcer disease and has been on TPN via port in the right side of her chest wall for the last few years had multiple complication previously but was hospitalized last time over a year ago.. She also has history of MRSA last one was 3 years ago arising from the neck abscess Patient presented to the emergency department at [facility] with severe shortness of breath, cough or 4 day duration, patient was started on Bactrim by Dr. Cruz, no prednisone from pulmonary service or PCP, patient did not get any better was subsequently admitted to the emergency room secondary to severe COPD exacerbation and right-sided pneumonia based on chest x-ray. Patient had fever and chills, fatigue and back pain near the right scapula In the emergency room COPD changes were noted and chest x-ray, with micronodular pattern, hiatal hernia with prominent lucency in the upper mediastinum stable with back 2012 , a vague infiltrate right upper lobe, upon arrival to emergency room, patient was wheezing with severe hypoxemic dyspnea tachypneic., patient required BiPAP Treatments,, patient is a full code and agrees to intubation if necessary Review of Systems Constitutional: Reports as per HPI, Reports anorexia, Reports chills, Reports fatigue, Reports fever, Reports poor appetite, Reports weakness, Denies chronic headaches, Denies chronic pain, Denies daytime sleepiness, Denies lethargy, Denies malaise, Denies night sweats, Denies sweats, Denies weight gain, Denies weight loss Ears, nose, mouth and throat: Reports as per HPI, Denies ant. neck pain, Denies bleeding gums, Denies dental pain, Denies dysphagia, Denies epistaxis, Denies headache, Denies hoarseness, Denies mouth pain, Denies nasal congestion, Denies nasal discharge, Denies neck fullness/pressure, Denies neck lump, Denies nose pain, Denies odynophagia, Denies post-nasal drip, Denies sinus pain, Denies sinus pressure, Denies swelling in mouth, Denies swelling in throat, Denies sore throat, Denies vertigo, Denies voice changes Cardiovascular: Reports as per HPI, Reports decreased exercise tolerance, Reports dyspnea on exertion, Reports shortness of breath, Denies chest pain, Denies claudication, Denies edema, Denies high blood pressure, Denies irregular heart beat, Denies leg edema, Denies lightheadedness, Denies orthopnea, Denies palpitations, Denies paroxysmal nocturnal dyspnea, Denies phlebitis, Denies rapid heart beat, Denies syncope Respiratory: Reports as per HPI, Reports cough, Reports dyspnea, Reports pain on inspiration, Reports respiratory infections, Reports wheezing, Denies congestion, Denies cough with sputum, Denies excessive sputum, Denies hemoptysis , Denies home oxygen, Denies pain, Denies pleurisy, Denies sleep apnea, Denies snoring Gastrointestinal: Reports as per HPI, Denies abdominal pain, Denies belching, Denies bloating, Denies BRBPR, Denies change in bowel habits, Denies coffee ground emesis, Denies constipation, Denies diarrhea, Denies dyspepsia, Denies early satiety, Denies excessive gas, Denies heartburn, Denies hematemesis, Denies hematochezia, Denies indigestion, Denies jaundice, Denies lactose intolerance, Denies loss of appetite, Denies melena, Denies nausea, Denies vomiting Genitourinary: Reports as per HPI, Denies abnormal vaginal bleeding, Denies decreased libido, Denies difficulty conceiving, Denies difficulty voiding, Denies dysmenorrhea, Denies dyspareunia, Denies dysuria, Denies flank pain, Denies genital sores, Denies hematuria, Denies hot flashes, Denies incomplete emptying, Denies kidney stones, Denies menorrhagia, Denies mixed incontinence, Denies nocturia, Denies pelvic pain, Denies post void dribbling, Denies , Denies prolapse symptoms, Denies stress incontinence, Denies urge incontinence , Denies urgency, Denies urinary frequency, Denies vaginal discharge, Denies vaginal dryness, Denies vaginal itching, Denies vaginal odor Menstruation: Reports as per HPI, Reports postmenopausal Musculoskeletal: Reports as per HPI, Denies arm numbness/tingling, Denies atrophy, Denies fractures, Denies frequent falls, Denies gait dysfunction, Denies hot joints, Denies leg numbness/tingling, Denies limitation of motion, Denies loss of height, Denies low back pain, Denies morning stiffness, Denies muscle cramps, Denies muscle weakness, Denies myalgias, Denies neck pain, Denies neck stiffness, Denies prior amputations, Denies redness of joints, Denies shooting arm pain, Denies shooting leg pain Integumentary: Reports as per HPI, Denies acne, Denies boils, Denies brittle nails, Denies change in hair/nails, Denies color changes, Denies darkening of skin, Denies depigmentation, Denies dryness, Denies foot/leg ulcers, Denies growths, Denies hirsutism, Denies lesions, Denies onychomycosis, Denies pruritus , Denies rash, Denies sores, Denies striae, Denies unusual bruising, Denies wounds Neurological: Reports as per HPI, Denies aphasia, Denies ataxia, Denies balance difficulties, Denies burning pain, Denies change in mentation, Denies change in smell/taste, Denies change in speech, Denies confusion, Denies convulsions, Denies double vision, Denies gait dysfunction, Denies head injury, Denies headaches, Denies hearing difficulties, Denies lack of coordination, Denies loss of vision, Denies memory loss, Denies migraines, Denies motor disturbance, Denies numbness, Denies paralysis, Denies paresthesias, Denies seizures, Denies sensory deficit, Denies spasticity, Denies syncope, Denies tic, Denies tingling , Denies transient paralysis, Denies tremors, Denies vertigo, Denies weakness, Denies visual changes Psychiatric: Reports as per HPI, Denies anhedonia, Denies anxiety, Denies anxiety attacks, Denies change in appetite, Denies change in libido, Denies change in sleep habits, Denies confusion, Denies depression, Denies difficulty concentrating, Denies disorientation, Denies hallucinations, Denies hopelessness , Denies hypersomnia, Denies insomnia, Denies irritability, Denies memory loss, Denies mood swings, Denies paranoia, Denies sadness/tearfulness, Denies sleep disturbances, Denies suicidal ideation Endocrine: Reports as per HPI Hematologic/Lymphatic: Reports as per HPI, Denies easy bleeding, Denies easy bruising, Denies lymphadenopathy, Denies lymphedema, Denies thrombophilia Allergic/Immunologic: Reports as per HPI Past Medical History Past Medical History: Heart Failure, COPD, Fibromyalgia, GERD/Reflux, GI Bleed, Musculoskeletal Disorder, Osteoarthritis (OA), Pneumonia, Thyroid Disorder Additional Past Medical History / Comment(s): HX OF PEPTIC ULCER DISEASE 1992, 2006 DEVELOPED MALABSORPTION SYNDROME/DIARRHEA. Vitamin D deficiency. Migraines. Cardiomyopathy , protein calorie malnutrition. Cachexia. Osteoporosis. DDD cervical- lumbar spine. Recurrent Pneumonia, Bacterial Infections. MILD STROKE 2005 EST. 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 ON IV TPPN DAILY [id number]. History of Any Multi-Drug Resistant Organisms: MRSA Date of last positivie culture/infection: 2013 MDRO Source:: RT SUBCLAVIAN LINE AND SPUTUM CULTURE Past Surgical History: Adenoidectomy, Tonsillectomy Additional Past Surgical History / Comment(s): STOMACH SURGERY X 4 INCLUDES PARTAIL GASTRECTOMY, FOLLOWED BY TOTAL GASTRECTOMY/ESOPHAGECTOMY, FOLLOWED BY ANASTOMOSIS USING PART OF HER COLON,adhesion, reconstructed with bowel, Maria catheter placement and removal multiple times, PICC LINE 09/19/15. R SD mediport 06/2016 Past Anesthesia/Blood Transfusion Reactions: Motion Sickness Past Psychological History: Depression Smoking Status: Former smoker Past Alcohol Use History: None Reported Past Drug Use History: None Reported - Past Family History Mother Family Medical History: COPD, Myocardial Infarction (ID) Father Family Medical History: Renal Disease Sister(s) Family Medical History: Respiratory Disorder Brother(s) Family Medical History: No Reported History Daughter(s) Family Medical History: No Reported History Medications and Allergies Home Medications Medication Instructions Recorded Confirmed Type Cyclobenzaprine [Flexeril] 10 mg PO BID 03/02/14 06/13/17 History Diclofenac Potassium [Cataflam] 50 mg PO TID 03/02/14 06/13/17 History Fluticasone/Salmeterol [Advair 1 puff INHALATION RT-DAILY 03/02/14 06/13/17 History 500-50 Diskus] Levalbuterol Hfa Inhaler [Xopenex 1 - 2 puff INHALATION RT-QID 03/02/14 History Hfa Inhaler] Levothyroxine Sodium [Synthroid] 100 mcg PO DAILY 03/02/14 06/13/17 History Tiotropium 18 Mcg/Puff [Spiriva] 1 cap INHALATION RT-DAILY 03/02/14 06/13/17 History traZODone HCL [Desyrel] 100 mg PO HS 03/02/14 06/13/17 History Butalb/Asprin/Caff 50-325-40Mg 1 - 2 cap PO Q4HR PRN MDD 6 09/14/15 06/13/17 History [Fiorinal 50-325-40 MG] tablets in 24 hours Calcitonin,[place],Synthetic 1 spray NS DAILY 09/14/15 06/13/17 History [Miacalcin] DULoxetine HCL [Cymbalta] 60 mg PO QAM 09/14/15 06/13/17 History DULoxetine HCL [Cymbalta] 30 mg PO HS 02/23/16 06/13/17 History Gabapentin [Neurontin] 100 mg PO DAILY 06/15/16 06/13/17 History Metoprolol Tartrate [Lopressor] 25 mg PO BID 04/18/17 06/13/17 History Aspirin 81 mg PO DAILY 06/13/17 06/13/17 History Biotin 10 mg PO DAILY 06/13/17 06/13/17 History Cholecalciferol [Vitamin D3] 3,000 unit PO DAILY 06/13/17 06/13/17 History Cyanocobalamin (Vitamin B-12) 1,000 mcg PO DAILY 06/13/17 06/13/17 History [Vitamin B-12] Ergocalciferol (Vitamin D2) 50,000 unit PO Q30D 06/13/17 06/13/17 History [Vitamin D2] Fluticasone Nasal [place] [Flonase 1 spray EA NOSTRIL DAILY PRN 06/13/17 06/13/17 History Nasal [place]] Folic Acid 1 mg PO DAILY 06/13/17 06/13/17 History Gabapentin [Neurontin] 200 mg PO DAILY@1400 06/13/17 06/13/17 History Gabapentin [Neurontin] 300 mg PO DAILY@1800 06/13/17 06/13/17 History HYDROcodone/APAP 10-325MG [[place] 1 tab PO TID PRN 06/13/17 06/13/17 History 10-325] LORazepam [Ativan] 1 mg PO BID PRN 06/13/17 06/13/17 History Magnesium Oxide [Mag-Ox] 400 mg PO DAILY 06/13/17 06/13/17 History Montelukast [Singulair] 10 mg PO HS 06/13/17 06/13/17 History Multivitamins, Thera [Multivitamin 1 tab PO DAILY 06/13/17 06/13/17 History (formulary)] Nystatin 100,000Unit/gm Cream 1 applic TOPICAL TID PRN 06/13/17 06/13/17 History [Mycostatin Cream] Allergies Allergy/AdvReac Type Severity Reaction Status Date / Time metoclopramide HCl Allergy Severe Hallucinati Verified 06/13/17 11:04 [From Reglan] ons Penicillins Allergy Severe Rash/Hives Verified 06/13/17 11:04 piperacillin sodium Allergy Severe Unknown Verified 06/13/17 11:04 [From Zosyn] Sulfa (Sulfonamide Allergy Severe hives Verified 06/13/17 11:04 Antibiotics) tazobactam sodium Allergy Severe Unknown Verified 06/13/17 11:04 [From Zosyn] cimetidine Allergy Intermediate Rash/Hives Verified 06/13/17 11:04 cimetidine HCl [From Tagamet] Allergy Rash/Hives Verified 06/13/17 11:04 Physical Exam Vitals: Vital Signs Temp Pulse Resp BP Pulse Ox 06/13/17 14:02 97.8 F 115 H 22 118/68 94 L 06/13/17 14:00 116 H 20 118/68 06/13/17 13:26 98.9 F 109 H 18 99/59 98 06/13/17 13:00 107 H 22 94/52 96 06/13/17 11:58 121 H 18 111/55 06/13/17 11:31 99.8 F H 119 H 24 106/64 97 06/13/17 10:59 130 H 06/13/17 10:45 120 H 06/13/17 10:17 103.3 F H 128 H 18 131/61 86 L Intake and Output 06/12/17 06/13/17 06/13/17 22:59 06:59 14:59 Other: Weight 47.627 kg Patient Weight 06/14/17 06:59 Weight 47.627 kg - Constitutional General appearance: cooperative, no acute distress, thin - EENT Eyes: anicteric sclerae, EOMI, PERRLA, dentition normal, normal appearance ENT: hearing grossly normal, NA/AT, normal oropharynx - Neck Neck: normal ROM - Respiratory Respiratory: right: rales, bilateral: diminished, wheezing, negative: CTA, dullness - Cardiovascular Rhythm: regular Heart sounds: normal: S1, S2 Abnormal Heart Sounds: no systolic murmur, no diastolic murmur, no rub, no S3 Gallop, no S4 Gallop, no click, no other - Gastrointestinal General gastrointestinal: normal bowel sounds, soft - Integumentary Integumentary: normal, normal turgor - Neurologic Neurologic: CNII-XII intact - Musculoskeletal Musculoskeletal: gait normal, generalized weakness, strength equal bilaterally - Psychiatric Psychiatric: A&O x's 3, appropriate affect, intact judgment & insight Results CBC & Chem 7: 06/13/17 10:53 06/13/17 10:53 Labs: Abnormal Lab Results - Last 24 Hours (Table) 06/13/17 06/13/17 06/13/17 Range/Units 10:53 10:53 10:53 WBC 14.6 H (3.8-10.6) k/uL Neutrophils # 13.8 H (1.3-7.7) k/uL Lymphocytes # 0.3 L (1.0-4.8) k/uL APTT (22.0-30.0) sec Sodium 124 L (137-145) mmol/L Potassium 3.4 L (3.5-5.1) mmol/L Chloride 90 L (98-107) mmol/L Creatinine 0.39 L (0.52-1.04) mg/dL Glucose 144 H (74-99) mg/dL Phosphorus 1.7 L (2.5-4.5) mg/dL Magnesium 1.4 L (1.6-2.3) mg/dL AST 51 H (14-36) U/L Alkaline Phosphatase 132 H (38-126) U/L Troponin I 0.135 H* (0.000-0.034) ng/mL Total Protein 5.8 L (6.3-8.2) g/dL Albumin 3.3 L (3.5-5.0) g/dL 06/13/17 Range/Units 10:53 WBC (3.8-10.6) k/uL Neutrophils # (1.3-7.7) k/uL Lymphocytes # (1.0-4.8) k/uL APTT 35.6 H (22.0-30.0) sec Sodium (137-145) mmol/L Potassium (3.5-5.1) mmol/L Chloride (98-107) mmol/L Creatinine (0.52-1.04) mg/dL Glucose (74-99) mg/dL Phosphorus (2.5-4.5) mg/dL Magnesium (1.6-2.3) mg/dL AST (14-36) U/L Alkaline Phosphatase (38-126) U/L Troponin I (0.000-0.034) ng/mL Total Protein (6.3-8.2) g/dL Albumin (3.5-5.0) g/dL Laboratory Results WBC 14.6 k/uL (3.8-10.6) H 06/13/17 10:53 RBC 4.21 m/uL (3.80-5.40) 06/13/17 10:53 Hgb 13.5 gm/dL (11.4-16.0) 06/13/17 10:53 Hct 39.3 % (34.0-46.0) 06/13/17 10:53 MCV 93.3 fL (80.0-100.0) 06/13/17 10:53 MCH 32.0 pg (25.0-35.0) 06/13/17 10:53 MCHC 34.3 g/dL (31.0-37.0) 06/13/17 10:53 RDW 13.5 % (11.5-15.5) 06/13/17 10:53 Plt Count 214 k/uL (150-450) 06/13/17 10:53 Neutrophils % 95 % 06/13/17 10:53 Lymphocytes % 2 % 06/13/17 10:53 Monocytes % 2 % 06/13/17 10:53 Eosinophils % 0 % 06/13/17 10:53 Basophils % 0 % 06/13/17 10:53 Neutrophils # 13.8 k/uL (1.3-7.7) H 06/13/17 10:53 Lymphocytes # 0.3 k/uL (1.0-4.8) L 06/13/17 10:53 Monocytes # 0.3 k/uL (0-1.0) 06/13/17 10:53 Eosinophils # 0.0 k/uL (0-0.7) 06/13/17 10:53 Basophils # 0.0 k/uL (0-0.2) 06/13/17 10:53 PT 10.8 sec (9.0-12.0) 06/13/17 10:53 INR 1.1 (<1.2) 06/13/17 10:53 APTT 35.6 sec (22.0-30.0) H 06/13/17 10:53 Sodium 124 mmol/L (137-145) L 06/13/17 10:53 Potassium 3.4 mmol/L (3.5-5.1) L 06/13/17 10:53 Chloride 90 mmol/L (98-107) L 06/13/17 10:53 Carbon Dioxide 23 mmol/L (22-30) 06/13/17 10:53 Anion Gap 11 mmol/L 06/13/17 10:53 BUN 8 mg/dL (7-17) 06/13/17 10:53 Creatinine 0.39 mg/dL (0.52-1.04) L 06/13/17 10:53 Est GFR (MDRD) Af Amer >60 (>60 ml/min/1.73 sqM) 06/13/17 10:53 Est GFR (MDRD) Non-Af >60 (>60 ml/min/1.73 sqM) 06/13/17 10:53 Glucose 144 mg/dL (74-99) H 06/13/17 10:53 Plasma Lactic Acid [place] 1.0 mmol/L (0.7-2.0) 06/13/17 10:53 Calcium 8.5 mg/dL (8.4-10.2) 06/13/17 10:53 Phosphorus 1.7 mg/dL (2.5-4.5) L 06/13/17 10:53 Magnesium 1.4 mg/dL (1.6-2.3) L 06/13/17 10:53 Total Bilirubin 0.4 mg/dL (0.2-1.3) 06/13/17 10:53 AST 51 U/L (14-36) H 06/13/17 10:53 ALT 39 U/L (9-52) 06/13/17 10:53 Alkaline Phosphatase 132 U/L (38-126) H 06/13/17 10:53 Total Creatine Kinase 69 U/L (30-135) 06/13/17 10:53 CK-MB (CK-2) 2.0 ng/mL (0.0-2.4) 06/13/17 10:53 CK-MB (CK-2) Rel Index 2.9 06/13/17 10:53 Troponin I 0.135 ng/mL (0.000-0.034) H* 06/13/17 10:53 Total Protein 5.8 g/dL (6.3-8.2) L 06/13/17 10:53 Albumin 3.3 g/dL (3.5-5.0) L 06/13/17 10:53 Thrombosis Risk Factor Assmnt - DVT/VTE Prophylaxis DVT/VTE Prophylaxis: Pharmacologic Prophylaxis ordered Assessment and Plan Plan: 1. Severe hypoxemic respiratory failure with chronic hypoxemia secondary to severe COPD exacerbation, patient is currently on BiPAP treatments with nebulized albuterol Atrovent, and IV Solu-Medrol, oxygen supplementation, baseline home O2 is at 3 L nasal cannula, patient will be seen consultation by Dr. Miranda from pulmonary medicine. Patient is very ill at this point she would place and selective might need ICU prior to ER transfer if needed. Continue Singulair and Xopenex and Pulmicort 1 mg twice a day patient was on 500 mg Advair at home, we transition to home dose Advair once stabilized. 2 right sided pneumonia: Patient will be on IV antibiotics for now consult pulmonary critical care continue current management repeat chest x-ray in 1-2 days.. Patient has multiple drug ALLERGIES, and would be started on cefepime, and Levaquin with known history off pseudomonas infection in the past. Sputum cultures will be obtained. Consult with Dr. Cruz who knows her well for streamlining of antibiotics. Patient failed oral Bactrim prior to admission 3 chronic hypoxemic respiratory failure on maintenance 3 L O2 at home 4 hypothyroidism continue levothyroxine at 100 g daily. 5 history of anxiety and panic attack: We'll provide Ativan1 mg 2times a day when necessary 6 history of neuropathy and fibromyalgia has been doing well on gabapentin along with Flexeril hold Flexeril we would restart once hypersomnia has stabilized. 7 chronic depression and depressive disorders continue patient on Cymbalta 90 mg daily.. 8 arrhythmia: Patient has been on metoprolol 25 g twice a day. 9 osteoporosis: Patient has been on Miacalcin along with calcium and vitamin D. 10 GI prophylaxis: Patient will be on Pepcid 20 mg daily. 11 DVT prophylaxis: Patient will have knee-high BARBARA hose and Venodyne boots. 12 Severe malabsorption and malnutrition: Has been on TPN via port CODE STATUS: Full code. Condition guarded X Expected length of stay 3 nights
[2017-06-13] MEDS: HYDROcodone/APAP 10-325MG 1 EACH TAB PO PRN ×2 (15:36→21:43)
[2017-06-13] MEDS: SODIUM CHLORIDE 0.9% 1,000 ML IV SCH ×2 (16:19→21:01)
--- NOTE | 2017-06-13 16:38 | P.CNPUL ---
History of Present Illness Consult date: 06/13/17 Requesting physician: Teresita Tracy Reason for consult: dyspnea Chief complaint: Shortness of breath History of present illness: This is a very pleasant 61-year-old female patient who follows with Dr. Ledesma as her primary care physician. She has a history of fibromyalgia, degenerative disc disease, hypothyroidism, osteoporosis. She also has a significant history of peptic ulcer disease with previous partial gastrectomy followed by subsequent total gastrectomy and esophagectomy with anastomosis. This has led to malabsorption syndrome and she is nourished with TPN. She follows with Dr. Hills in our office for severe Gold stage III chronic obstructive pulmonary disease. She has also had multiple pulmonary infections including MRSA, Pseudomonas, as a note toe back to her, Enterobacter Klebsiella and stenotrophomonas. She also follows with Dr. Cruz. She is maintained on Bactrim most recently. She had been on Zithromax Saturday. She was last seen in our office 05/24/2017 and was doing quite well. She presented here to the emergency room this morning with complaints of severe shortness of breath, fever and palpitations. Her chest x-ray reveals evidence of chronic obstructive pulmonary disease with a vague infiltrate or nodule in the right upper lobe with other multiple tiny nodules bilaterally. There is also a hiatal hernia with prominent lucency in the upper mediastinum which could be related to her previous gastric pull-through procedure. This had been stable since 2011. Initial white count 14.6. Sodium is low at 124 potassium 3.4, small troponin leak of 0.135. EKG reveals sinus tachycardia with nonspecific ST and T wave abnormalities. She is slightly tachycardic She is afebrile. Currently hemodynamically stable. She's been placed on BiPAP 10/5 at 40% FiO2 and is maintaining O2 saturations in the mid 90s. She states she is breathing better this afternoon. Her sister is at the bedside and is helpful with the history. She'll be admitted to the selective care unit for closer monitoring. Review of Systems 14 point review of system was conducted. All negative other than as mentioned in HPI. Past Medical History Past Medical History: Heart Failure, COPD, Fibromyalgia, GERD/Reflux, GI Bleed, Musculoskeletal Disorder, Osteoarthritis (OA), Pneumonia, Thyroid Disorder Additional Past Medical History / Comment(s): HX OF PEPTIC ULCER DISEASE 1992, 2007 DEVELOPED MALABSORPTION SYNDROME/DIARRHEA. Vitamin D deficiency. Migraines. Cardiomyopathy , protein calorie malnutrition. Cachexia. Osteoporosis. DDD cervical- lumbar spine. Recurrent Pneumonia, Bacterial Infections. MILD STROKE 2006 EST. 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 ON IV TPPN DAILY [id number]. History of Any Multi-Drug Resistant Organisms: MRSA Date of last positivie culture/infection: 2013 MDRO Source:: RT SUBCLAVIAN LINE AND SPUTUM CULTURE Past Surgical History: Adenoidectomy, Tonsillectomy Additional Past Surgical History / Comment(s): STOMACH SURGERY X 4 INCLUDES PARTAIL GASTRECTOMY, FOLLOWED BY TOTAL GASTRECTOMY/ESOPHAGECTOMY, FOLLOWED BY ANASTOMOSIS USING PART OF HER COLON,adhesion, reconstructed with bowel, Maria catheter placement and removal multiple times, PICC LINE 09/19/15. R SC mediport 06/2016 Past Anesthesia/Blood Transfusion Reactions: Motion Sickness Past Psychological History: Depression Smoking Status: Former smoker Past Alcohol Use History: None Reported Past Drug Use History: None Reported - Past Family History Mother Family Medical History: COPD, Myocardial Infarction ([place]) Father Family Medical History: Renal Disease Sister(s) Family Medical History: Respiratory Disorder Brother(s) Family Medical History: No Reported History Daughter(s) Family Medical History: No Reported History Medications and Allergies Home Medications Medication Instructions Recorded Confirmed Type Cyclobenzaprine [Flexeril] 10 mg PO BID 03/02/14 06/13/17 History Diclofenac Potassium [Cataflam] 50 mg PO TID 03/02/14 06/13/17 History Fluticasone/Salmeterol [Advair 1 puff INHALATION RT-DAILY 03/02/14 06/13/17 History 500-50 Diskus] Levalbuterol Hfa Inhaler [Xopenex 1 - 2 puff INHALATION RT-QID 03/02/14 History Hfa Inhaler] Levothyroxine Sodium [Synthroid] 100 mcg PO DAILY 03/02/14 06/13/17 History Tiotropium 18 Mcg/Puff [Spiriva] 1 cap INHALATION RT-DAILY 03/02/14 06/13/17 History traZODone HCL [Desyrel] 100 mg PO HS 03/02/14 06/13/17 History Butalb/Asprin/Caff 50-325-40Mg 1 - 2 cap PO Q4HR PRN MDD 6 09/14/15 06/13/17 History [Fiorinal 50-325-40 MG] tablets in 24 hours Calcitonin,[place],Synthetic 1 spray NS DAILY 09/14/15 06/13/17 History [Miacalcin] DULoxetine HCL [Cymbalta] 60 mg PO QAM 09/14/15 06/13/17 History DULoxetine HCL [Cymbalta] 30 mg PO HS 02/23/16 06/13/17 History Gabapentin [Neurontin] 100 mg PO DAILY 06/15/16 06/13/17 History Metoprolol Tartrate [Lopressor] 25 mg PO BID 04/18/17 06/13/17 History Aspirin 81 mg PO DAILY 06/13/17 06/13/17 History Biotin 10 mg PO DAILY 06/13/17 06/13/17 History Cholecalciferol [Vitamin D3] 3,000 unit PO DAILY 06/13/17 06/13/17 History Cyanocobalamin (Vitamin B-12) 1,000 mcg PO DAILY 06/13/17 06/13/17 History [Vitamin B-12] Ergocalciferol (Vitamin D2) 50,000 unit PO Q30D 06/13/17 06/13/17 History [Vitamin D2] Fluticasone Nasal [place] [Flonase 1 spray EA NOSTRIL DAILY PRN 06/13/17 06/13/17 History Nasal [place]] Folic Acid 1 mg PO DAILY 06/13/17 06/13/17 History Gabapentin [Neurontin] 200 mg PO DAILY@1400 06/13/17 06/13/17 History Gabapentin [Neurontin] 300 mg PO DAILY@1800 06/13/17 06/13/17 History HYDROcodone/APAP 10-325MG [[place] 1 tab PO TID PRN 06/13/17 06/13/17 History 10-325] LORazepam [Ativan] 1 mg PO BID PRN 06/13/17 06/13/17 History Magnesium Oxide [Mag-Ox] 400 mg PO DAILY 06/13/17 06/13/17 History Montelukast [Singulair] 10 mg PO HS 06/13/17 06/13/17 History Multivitamins, Thera [Multivitamin 1 tab PO DAILY 06/13/17 06/13/17 History (formulary)] Nystatin 100,000Unit/gm Cream 1 applic TOPICAL TID PRN 06/13/17 06/13/17 History [Mycostatin Cream] Allergies Allergy/AdvReac Type Severity Reaction Status Date / Time metoclopramide HCl Allergy Severe Hallucinati Verified 06/13/17 11:04 [From Reglan] ons Penicillins Allergy Severe Rash/Hives Verified 06/13/17 11:04 piperacillin sodium Allergy Severe Unknown Verified 06/13/17 11:04 [From Zosyn] Sulfa (Sulfonamide Allergy Severe hives Verified 06/13/17 11:04 Antibiotics) tazobactam sodium Allergy Severe Unknown Verified 06/13/17 11:04 [From Zosyn] cimetidine Allergy Intermediate Rash/Hives Verified 06/13/17 11:04 cimetidine HCl [From Tagamet] Allergy Rash/Hives Verified 06/13/17 11:04 Physical Exam Vitals: Vital Signs Temp Pulse Resp BP Pulse Ox 06/13/17 15:40 97.1 F L 106 H 24 125/64 95 06/13/17 15:34 116 H 06/13/17 15:26 118 H 06/13/17 14:02 97.8 F 115 H 22 118/68 94 L 06/13/17 14:00 116 H 20 118/68 06/13/17 13:26 98.9 F 109 H 18 99/59 98 06/13/17 13:00 107 H 22 94/52 96 06/13/17 11:58 121 H 18 111/55 06/13/17 11:31 99.8 F H 119 H 24 106/64 97 06/13/17 10:59 130 H 06/13/17 10:45 120 H 06/13/17 10:17 103.3 F H 128 H 18 131/61 86 L Intake and Output 06/13/17 06/13/17 06/13/17 06:59 14:59 22:59 Other: Weight 47.627 kg Patient Weight 06/14/17 06:59 Weight 47.627 kg GENERAL EXAM: Frail, cachectic. Mild respiratory distress. HEAD: Normocephalic. EYES: Normal reaction of pupils, equal size. NOSE: Clear with pink turbinates. THROAT: No erythema or exudates. NECK: No masses, no JVD. CHEST: No chest wall deformity. Right subclavian Mediport in place LUNGS: Equal air entry with bilateral wheezing, diminished throughout. CVS: S1 and S2 normal with no audible murmurs, regular rhythm. ABDOMEN: Soft, nontender. Bowel sounds are present. Extremities: There is no peripheral edema. No clubbing, no cyanosis. Peripheral pulses are intact. Results - Laboratory Findings CBC and BMP: 06/13/17 10:53 06/13/17 10:53 PT/INR, D-dimer PT 10.8 sec (9.0-12.0) 06/13/17 10:53 INR 1.1 (<1.2) 06/13/17 10:53 Abnormal lab findings: Abnormal Labs 06/13/17 06/13/17 06/13/17 10:53 10:53 10:53 WBC 14.6 H Neutrophils # 13.8 H Lymphocytes # 0.3 L APTT Sodium 124 L Potassium 3.4 L Chloride 90 L Creatinine 0.39 L Glucose 144 H Phosphorus 1.7 L Magnesium 1.4 L AST 51 H Alkaline Phosphatase 132 H Troponin I 0.135 H* Total Protein 5.8 L Albumin 3.3 L 06/13/17 10:53 WBC Neutrophils # Lymphocytes # APTT 35.6 H Sodium Potassium Chloride Creatinine Glucose Phosphorus Magnesium AST Alkaline Phosphatase Troponin I Total Protein Albumin - Diagnostic Findings Chest x-ray: image reviewed Assessment and Plan Plan: Impression: #1 Acute hypoxic respiratory failure secondary to an acute exacerbation of severe Gold stage III chronic obstructive pulmonary disease. Right upper lobe vague infiltrate is chronic in nature along with a left apical region as compared to previous x-rays. #2 Hyponatremia, current sodium 124. #3 Hypokalemia, current potassium 3.4. #4 Small troponin leak. #5 Malabsorption syndrome, receiving TPN in the outpatient setting, secondary to total gastrectomy/esophagectomy with pull-through. #6 Multiple previous pneumonias secondary to Pseudomonas, MRSA, Klebsiella and stenotrophomonas. Currently maintained on Bactrim in the outpatient setting. #7 Remote history of chronic tobacco use. #8 Hypothyroidism. #9 Osteoarthritis. #10 Poor overall functional performance based on the above-mentioned multiple comorbidities. Plan: The patient was seen and evaluated by Dr. Miranda. Her chest x-ray and labs were reviewed. We'll go ahead and treat her for her COPD exacerbation. No clear evidence of pneumonia currently. She is on empiric antibiotics, bronchodilators, IV Solu-Medrol. Continue her Singulair and Spiriva. We'll continue to utilize BiPAP until her pulmonary status improves. Correct her electrolytes. We'll monitor her closely on the selective care unit. We'll continue to follow and make further recommendations based on her clinical status. Time with Patient: Greater than 30
[2017-06-13] MEDS ORDERED: Magnesium Replacement Protocol 1 EACH MISC MISCELLANE PRN (17:20)
[2017-06-13] MEDS ORDERED: GABAPENTIN 300 MG CAP PO SCH (18:00)
[2017-06-13] MEDS: POTASSIUM CHLORIDE 10 MEQ, LIDOCAINE 2% INJ 10 MG in SODIUM CHLORIDE 0.9% 100 ML IV SCH ×2 (18:04→20:59)
[2017-06-13] MEDS: methylPREDNISolone SOD SUCCI 125 MG/2 ML VIAL IV SCH ×2 (18:04→22:52)
[2017-06-13] MEDS: MAGNESIUM SULFATE-D5W PMX 1 GM in DEXTROSE/WATER 1 100ML.BAG IVPB SCH ×3 (18:11→22:52)
[2017-06-13] MEDS: LEVALBUTEROL NEB 1.25 MG/3 ML AMP INHALATION SCH ×2 (18:18→19:11)
[2017-06-13] MEDS: BUDESONIDE 1 MG/2 ML NEBU INHALATION SCH (19:11)
[2017-06-13 20:56] LABS: Glucose,Whole Blood 147 mg/dL (75-99)
[2017-06-13] MEDS: INSULIN LISPRO (humaLOG) 300 UNIT/3 ML VIAL SQ SCH (21:00)
[2017-06-13] MEDS: DULoxetine HCL 30 MG CAPSULE.DR PO SCH (21:00)
[2017-06-13] MEDS: MONTELUKAST 10 MG TAB PO SCH (21:00)
[2017-06-13] MEDS ORDERED: traZODone HCL 100 MG TAB PO SCH (21:00)
[2017-06-13] MEDS: METOPROLOL TARTRATE 25 MG TAB PO SCH (21:01)
[2017-06-14] MEDS: methylPREDNISolone SOD SUCCI 125 MG/2 ML VIAL IV SCH ×3 (05:44→18:06)
[2017-06-14 06:15] LABS: Glucose,Whole Blood 137 mg/dL (75-99)
[2017-06-14 07:21] LABS: CH 31.2; CHCM 31.9; HCT 42.7 % (34.0-46.0); HDW 2.96; MCH 32.2 pg (25.0-35.0); MCHC 32.8 g/dL (31.0-37.0); MCV 98.2 fL (80.0-100.0); Mean Platelet Volume 7.9; RBC 4.34 m/uL (3.80-5.40); RDW 13.6 % (11.5-15.5); WBC 22.5 k/uL (3.8-10.6)
[2017-06-14] MEDS: LEVALBUTEROL NEB 1.25 MG/3 ML AMP INHALATION SCH ×4 (07:22→19:53)
[2017-06-14] MEDS: BUDESONIDE 1 MG/2 ML NEBU INHALATION SCH ×2 (07:22→19:53)
[2017-06-14 07:25] LABS: Glucose,Whole Blood 124 mg/dL (75-99)
[2017-06-14 07:34] LABS: Anion Gap 9 mmol/L; Blood Urea Nitrogen 8 mg/dL (7-17); Calcium 7.7 mg/dL (8.4-10.2); Carbon Dioxide 22 mmol/L (22-30); Chloride 95 mmol/L (98-107); Glucose 112 mg/dL (74-99); Magnesium 2.2 mg/dL (1.6-2.3); Non-African American GFR(MDRD) >60 (>60 ml/min/1.73 sqM); Sodium 126 mmol/L (137-145)
--- NOTE | 2017-06-14 07:39 | XR ---
EXAMINATION TYPE: XR chest 1V portable DATE OF EXAM: 06/14/2017 CLINICAL HISTORY: Difficulty breathing and pneumonia. TECHNIQUE: Single AP portable semiupright view of the chest is obtained. COMPARISON: Chest x-ray from one day earlier and older x-rays. FINDINGS: There is stable right internal jugular Mediport catheter. Cardiac silhouette size is stabl e and mildly enlarged. There is background chronic emphysematous change with slightly more prominent blunting of bilateral lateral costophrenic angles suggesting developing small bilateral pleural effus ions. There is increasing interstitial prominence suggesting developing interstitial edema. There is parenchymal scarring with more prominent left upper lung opacity and diffuse left lung reticulonodula r opacities. Trachea is deviated to left of midline and significantly diffusely widened. Osseous stru ctures are demineralized. IMPRESSION: Redemonstration of chronic emphysematous change, stable mild cardiomegaly, and scattered parenchymal fibrosis. There is diffuse tracheal dilatation redemonstrated. There is developing small bilateral pleural effusions and bilateral interstitial edema with more prominent left upper lobe infi ltrate noted versus most recent prior x-ray. Consider fluid overload state or CHF exacerbation with d eveloping focal pneumonia on background of chronic changes.
[2017-06-14 07:43] LABS: Potassium 4.8 mmol/L (3.5-5.1)
[2017-06-14 07:50] LABS: ABG PH 7.04 (7.35-7.45)
[2017-06-14 07:51] LABS: ABG Base Excess -5.3 mmol/L; ABG HCO3 24 mmol/L (21-25); ABG PCO2 94 mmHg (35-45); ABG PO2 84 mmHg (83-108); ABG TCO2 27 mmol/L (19-24)
[2017-06-14] MEDS: TIOTROPIUM 18 MCG/PUFF INHALER INHALATION SCH (07:52)
[2017-06-14] MEDS ORDERED: PROPOFOL 1,000 MG/100 ML VIAL IV ONE (07:56)
[2017-06-14] MEDS ORDERED: PROPOFOL 10 MG/ML 20 ML VIAL IV ONE (08:00)
[2017-06-14] MEDS: INSULIN LISPRO (humaLOG) 300 UNIT/3 ML VIAL SQ SCH ×3 (08:38→18:11)
[2017-06-14] MEDS: SODIUM CHLORIDE 0.9% 1,000 ML IV SCH ×2 (08:39→18:07)
[2017-06-14] MEDS: ENOXAPARIN 40 MG/0.4 ML SYRINGE SQ SCH (08:39)
[2017-06-14] MEDS: ASPIRIN 81 MG PO SCH (08:39)
[2017-06-14] MEDS: DULoxetine HCL 60 MG CAPSULE.DR PO SCH (08:39)
[2017-06-14] MEDS: METOPROLOL TARTRATE 25 MG TAB PO SCH ×2 (08:40→20:24)
[2017-06-14] MEDS ORDERED: NALOXONE 0.4 MG/ML 1 ML VIAL IV PRN (08:52)
--- NOTE | 2017-06-14 08:57 | XR ---
EXAMINATION TYPE: XR chest 1V portable DATE OF EXAM: 06/14/2017 HISTORY: Shortness of breath. COMPARISON: June 14, 2017 TECHNIQUE: Single view of the chest is submitted. FINDINGS: Endotracheal tube is appropriately positioned. NG tube is coiled within the upper esophagus and shoul d be repositioned. Right-sided MediPort catheter is unchanged in position. Diffuse infiltrate throughout the left lung greatest within the left upper lobe. Underlying mass is n ot excluded. Hyperinflation right lung. Suspect small left-sided effusion. The heart is stable. Hilar and mediastinal structures are within normal limits. Degenerative changes are seen of the dorsal spine. IMPRESSION: 1. Appropriate placement of endotracheal tube. 2. Reposition NG tube. 3. Airspace disease throughout the left lung. Left upper lobe mass is not excluded. Follow-up until r esolution advised.
[2017-06-14] MEDS ORDERED: LEVOTHYROXINE 100 MCG TAB PO SCH (09:00)
[2017-06-14] MEDS ORDERED: GABAPENTIN 100 MG CAP PO SCH ×2 (09:00→14:00)
[2017-06-14 09:30] LABS: ABG Base Excess -5.4 mmol/L; ABG HCO3 21 mmol/L (21-25); ABG PCO2 51 mmHg (35-45); ABG PH 7.24 (7.35-7.45); ABG PO2 416 mmHg (83-108); ABG TCO2 22 mmol/L (19-24)
[2017-06-14 09:50] LABS: Appearance,Urine Cloudy (Clear); Bilirubin,Urine Negative (Negative); Glucose,Urine (UA) Negative (Negative); Ketones,Urine 1+ (Negative); Leukocyte Esterase,Urine Negative (Negative); Mucus,Urine Rare /hpf; Nitrite,Urine Negative (Negative); Particle Count 15853; Protein,Urine 2+ (Negative); RBC,Urine 7 /hpf (0-5); Specific Gravity,Urine 1.014 (1.001-1.035); Squamous Epithelial Cell,Urine <1 /hpf (0-4); UA Billing (MACRO vs. MICRO) MICRO; Urobilinogen,Urine <2.0 mg/dL (<2.0); WBC,Urine 4 /hpf (0-5)
[2017-06-14] MEDS: PROPOFOL 1,000 MG/100 ML VIAL IV SCH ×3 (10:24→22:13)
[2017-06-14] MEDS ORDERED: SODIUM CHLORIDE 0.9% 500 ML IV ONE (10:34)
[2017-06-14] MEDS: CEFEPIME 2 GM in SODIUM CHLORIDE 0.9% 50 ML IVPB SCH ×2 (11:03→21:23)
[2017-06-14 11:13] LABS: Ionized Calcium 4.6 mg/dL (4.5-5.3)
[2017-06-14] MEDS: CHLORHEXIDINE GLUCONATE 15 ML CUP MUCOUS MEM SCH ×2 (11:24→21:18)
[2017-06-14] MEDS: PANTOPRAZOLE 40 MG/10 ML VIAL IV SCH (11:25)
[2017-06-14] MEDS: CHOLECALCIFEROL 1,000 UNIT TAB PO SCH (11:26)
[2017-06-14] MEDS: FOLIC ACID 1 MG TAB PO SCH (11:26)
[2017-06-14] MEDS: LEVOFLOXACIN 750MG-D5W PMX 750 MG in DEXTROSE/WATER 1 150ML.BAG IVPB SCH (11:26)
[2017-06-14] MEDS: MAGNESIUM OXIDE 400 MG TAB PO SCH (11:26)
[2017-06-14] MEDS ORDERED: CALCIUM GLUCONATE 1,000 MG in SODIUM CHLORIDE 0.9% 100 ML IVPB ONE (11:30)
[2017-06-14 12:31] LABS: Glucose,Whole Blood 142 mg/dL (75-99)
[2017-06-14] MEDS: ACETAMINOPHEN IV (For NPO) 1,000 MG in EMPTY BAG 1 BAG IVPB PRN (13:22)
[2017-06-14] MEDS: MVI, ADULT NO.4 WITH VIT K 10 ML, TRACE (CONC-1ML/DOSE) 1 ML, SODIUM CHLORIDE 4MEQ/ML V... IV SCH ×4 (14:05)
[2017-06-14] MEDS ORDERED: POTASSIUM PHOSPHATE 10 MMOL in SODIUM CHLORIDE 0.9% 100 ML IV ONE (15:00)
[2017-06-14] MEDS ORDERED: NOREPINEPHRIN 16 MG-0.9%NS PMX 16 MG/250 ML ML IV SCH (15:15)
[2017-06-14] MEDS: HYDROmorphone 1 MG/ML 1 ML SYRINGE IVP PRN (15:19)
--- NOTE | 2017-06-14 15:54 | P.PN ---
Subjective This is a [id number] pleasant female patient of Dr. Javier Ledesma and Dr. Rader with known history of COPD, CVA, fibromyalgia, GERD, GI bleed, or she tried this, pneumonia and a previous line infection treated by Dr. Cruz last 09/14/2015, she was septic at that time required IV antibiotics with sepsis from her right chest wall cellulitis . Her last admission was September 2016 for left-sided pneumonia with sepsis, possible gram-negative pneumonia possible septic shock, no sputum cultures isolated during that last admission. Patient is known to have history of malabsorption she had partial gastrectomy followed by total gastrectomy with esophagectomy secondary to peptic ulcer disease and has been on TPN via port in the right side of her chest wall for the last few years had multiple complication previously but was hospitalized last time over a year ago.. She also has history of MRSA last one was 3 years ago arising from the neck abscess Patient presented to the emergency department at [facility] with severe shortness of breath, cough or 4 day duration, patient was started on Bactrim by Dr. Cruz, no prednisone from pulmonary service or PCP, patient did not get any better was subsequently admitted to the emergency room secondary to severe COPD exacerbation and right-sided pneumonia based on chest x-ray. Patient had fever and chills, fatigue and back pain near the right scapula In the emergency room COPD changes were noted and chest x-ray, with micronodular pattern, hiatal hernia with prominent lucency in the upper mediastinum stable with back 2012 , a vague infiltrate right upper lobe, upon arrival to emergency room, patient was wheezing with severe hypoxemic dyspnea tachypneic., patient required BiPAP Treatments,, patient is a full code and agrees to intubation if necessary 06/14: Patient required mechanical ventilation early this morning at around 7:30, and intubated by Dr. Miranda, patient was tachypneic and fatiguing with the BiPAP treatment, she also was hypoxemic despite BiPAP, she was severely acidotic based on ABG the pH of 7.04 pCO2 of 94, OG tube to be placed later today patient is sedated on a vent Objective - Vital Signs Vital signs: Vital Signs Temp 101.9 F H 06/14/17 12:29 Pulse 89 06/14/17 14:00 Resp 26 H 06/14/17 14:00 BP 92/44 06/14/17 14:00 Pulse Ox 97 06/14/17 14:00 Intake & Output 06/13/17 06/14/17 06/14/17 18:59 06:59 18:59 Intake Total 200 1558.118 Output Total 620 Balance 200 938.118 Weight 47.627 kg 49.2 kg 49.2 kg Intake: IV 1530 ACETAMINOPHEN IV (For NPO 100 ) 1,000 mg In Empty Bag 1 bag @ 400 mls/hr IVPB Q6HR PRN Rx#:[id number] Calcium Gluconate 1,000 100 mg In Sodium Chloride 0.9 % 100 ml @ 100 mls/hr IVPB ONCE ONE Rx#: [id number] Cefepime 2 gm In Sodium 50 Chloride 0.9% 50 ml @ 100 mls/hr IVPB ONCE STA Rx# :[id number] Levofloxacin 750Mg-D5w 150 Pmx 750 mg In Dextrose/ Water 1 150ml.bag @ 100 mls/hr IVPB Q24H [facility] Rx#: [id number] Mvi, Adult No.4 with Vit 30 K 10 ml Trace (Conc-1Ml/ Dose) 1 ml Sodium Chloride 4Meq/ml Vial 20 meq In Amino Acid 5%-D15w +Lytes*E* 1,000 ml @ 30 mls/hr IV .Q24H [facility] Rx#: [id number] Sodium Chloride 0.9% 1, 600 000 ml @ 100 mls/hr IV . Q10H [facility] Rx#:[id number] Sodium Chloride 0.9% 500 500 ml @ 999 mls/hr IV .Q31M [facility] Rx#:[id number] Intake, IV Titration 200 28.118 Amount Propofol 1,000 mg In 100 28.118 ml @ Titrate IV .Q0M [facility] Rx#:[id number] Sodium Chloride 0.9% 1, 200 000 ml @ 100 mls/hr IV . Q10H [facility] Rx#:[id number] Output: Urine 620 Other: Voiding Method Bedpan Bedside Commode Incontinent - Constitutional General appearance: Present: thin - EENT Eyes: Present: anicteric sclerae, PERRLA - Respiratory Respiratory: bilateral: diminished, wheezing - Cardiovascular Rhythm: regular Heart sounds: normal: S1, S2 Abnormal Heart Sounds: Absent: systolic murmur, diastolic murmur, rub, S3 Gallop , S4 Gallop, click, other - Gastrointestinal General gastrointestinal: Present: normal bowel sounds, soft - Integumentary Integumentary: Present: normal, normal turgor - Neurologic Neurologic Comment(s): Sedated on a vent - Labs CBC & Chem 7: 06/14/17 06:00 06/14/17 06:00 Labs: Abnormal Lab Results - Last 24 Hours (Table) 06/13/17 06/14/17 06/14/17 Range/Units 20:53 06:00 06:00 WBC 22.5 H (3.8-10.6) k/uL ABG pH (7.35-7.45) ABG pCO2 (35-45) mmHg ABG pO2 (83-108) mmHg ABG Total CO2 (19-24) mmol/L ABG O2 Saturation (94-97) % Sodium 126 L (137-145) mmol/L Chloride 95 L (98-107) mmol/L Creatinine 0.39 L (0.52-1.04) mg/dL Glucose 112 H (74-99) mg/dL POC Glucose (mg/dL) 147 H (75-99) mg/dL Calcium 7.7 L (8.4-10.2) mg/dL Albumin (3.5-5.0) g/dL Urine Appearance (Clear) Urine Protein (Negative) Urine Ketones (Negative) Urine Blood (Negative) Urine RBC (0-5) /hpf Hyaline Casts (0-2) /lpf Urine Mucus (None) /hpf 06/14/17 06/14/17 06/14/17 Range/Units 06:11 07:14 07:35 WBC (3.8-10.6) k/uL ABG pH 7.04 L* (7.35-7.45) ABG pCO2 94 H* (35-45) mmHg ABG pO2 (83-108) mmHg ABG Total CO2 27 H (19-24) mmol/L ABG O2 Saturation 89.0 L (94-97) % Sodium (137-145) mmol/L Chloride (98-107) mmol/L Creatinine (0.52-1.04) mg/dL Glucose (74-99) mg/dL POC Glucose (mg/dL) 137 H 124 H (75-99) mg/dL Calcium (8.4-10.2) mg/dL Albumin (3.5-5.0) g/dL Urine Appearance (Clear) Urine Protein (Negative) Urine Ketones (Negative) Urine Blood (Negative) Urine RBC (0-5) /hpf Hyaline Casts (0-2) /lpf Urine Mucus (None) /hpf 06/14/17 06/14/17 06/14/17 Range/Units 09:15 09:30 10:47 WBC (3.8-10.6) k/uL ABG pH 7.24 L (7.35-7.45) ABG pCO2 51 H (35-45) mmHg ABG pO2 416 H (83-108) mmHg ABG Total CO2 (19-24) mmol/L ABG O2 Saturation 99.0 H (94-97) % Sodium (137-145) mmol/L Chloride (98-107) mmol/L Creatinine (0.52-1.04) mg/dL Glucose (74-99) mg/dL POC Glucose (mg/dL) (75-99) mg/dL Calcium (8.4-10.2) mg/dL Albumin 2.6 L (3.5-5.0) g/dL Urine Appearance Cloudy H (Clear) Urine Protein 2+ H (Negative) Urine Ketones 1+ H (Negative) Urine Blood Moderate H (Negative) Urine RBC 7 H (0-5) /hpf Hyaline Casts 3 H (0-2) /lpf Urine Mucus Rare H (None) /hpf 06/14/17 Range/Units 12:29 WBC (3.8-10.6) k/uL ABG pH (7.35-7.45) ABG pCO2 (35-45) mmHg ABG pO2 (83-108) mmHg ABG Total CO2 (19-24) mmol/L ABG O2 Saturation (94-97) % Sodium (137-145) mmol/L Chloride (98-107) mmol/L Creatinine (0.52-1.04) mg/dL Glucose (74-99) mg/dL POC Glucose (mg/dL) 142 H (75-99) mg/dL Calcium (8.4-10.2) mg/dL Albumin (3.5-5.0) g/dL Urine Appearance (Clear) Urine Protein (Negative) Urine Ketones (Negative) Urine Blood (Negative) Urine RBC (0-5) /hpf Hyaline Casts (0-2) /lpf Urine Mucus (None) /hpf Assessment and Plan Plan: 1. Severe hypoxemic acute on chronic respiratory failure with chronic hypoxemia secondary to severe COPD exacerbation, patient is currently on BiPAP treatments with nebulized albuterol Atrovent, and IV Solu-Medrol, oxygen supplementation, baseline home O2 is at 3 L nasal cannula, patient will be seen consultation by Dr. Miranda from pulmonary medicine. Patient is very ill at this point she would place and selective might need ICU prior to ER transfer if needed. Continue Singulair and Xopenex and Pulmicort 1 mg twice a day patient was on 500 mg Advair at home, we transition to home dose Advair once stabilized.patient currently is intubated 2. Acute respiratory failure requiring mechanical ventilation on 06/14/2017 critical care pulmonary physician Dr. Miranda managing vent, OG tube to be placed with transitioning of her medications, oral feedings OG tube 3 right sided pneumonia: Patient will be on IV antibiotics for now consult pulmonary critical care continue current management repeat chest x-ray in 1-2 days.. Patient has multiple drug ALLERGIES, and would be started on cefepime, and Levaquin with known history of pseudomonas infection in the past. Sputum cultures will be obtained. Consult with Dr. Cruz who knows her well for streamlining of antibiotics. Patient failed oral Bactrim prior to admission . mycoplasma antibody negative, sputum cultures pending 4 chronic hypoxemic respiratory failure on maintenance 3 L O2 at home 5 Chemistry abnormalities with hyponatremia, most likely secondary to severe pneumonia hyperkalemia, elevated mild AST and alkaline phosphatase, hypokalemia , chemistries will be followed closely 6 hypothyroidism continue levothyroxine at 100 g daily. 7 history of anxiety and panic attack: We'll provide Ativan1 mg 2times a day when necessary 8 history of neuropathy and fibromyalgia has been doing well on gabapentin along with Flexeril hold Flexeril we would restart once hypersomnia has stabilized. 9 chronic depression and depressive disorders continue patient on Cymbalta 90 mg daily.. 10 arrhythmia: Patient has been on metoprolol 25 g twice a day. 11 osteoporosis: Patient has been on Miacalcin along with calcium and vitamin D. 12 Severe malabsorption and malnutrition: Has been on TPN via port in the past GI prophylaxis: Patient will be on Pepcid 20 mg daily. DVT prophylaxis: Patient will have knee-high BARBARA hose and Venodyne boots. CODE STATUS: Full code. Condition guarded X Expected length of stay 3 nights
--- NOTE | 2017-06-14 17:22 | P.CONS ---
History of Present Illness - Reason for Consult Consult date: 06/14/17 Placement of OG tube endoscopically. - History of Present Illness 61-year old female with COPD admited with fever and SOB. Had hypoxic respiratory failure and had to be intubated and mechanically ventilated this morning. OG tube could not be placed safely. Patient has history of PUD and complicated reflux disease and had total gasrectomy as well as esophagectomy with colonic interposition. Has malabsorption and I am involved in the management of her home TPN. Review of Systems ROS unobtainable: due to endotracheal tube Past Medical History Past Medical History: Heart Failure, COPD, Fibromyalgia, GERD/Reflux, GI Bleed, Musculoskeletal Disorder, Osteoarthritis (OA), Pneumonia, Thyroid Disorder Additional Past Medical History / Comment(s): HX OF PEPTIC ULCER DISEASE 1992, 2006 DEVELOPED MALABSORPTION SYNDROME/DIARRHEA. Vitamin D deficiency. Migraines. Cardiomyopathy , protein calorie malnutrition. Cachexia. Osteoporosis. DDD cervical- lumbar spine. Recurrent Pneumonia, Bacterial Infections. MILD STROKE 2005 EST. 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 ON IV TPPN DAILY [id number]. History of Any Multi-Drug Resistant Organisms: MRSA Year Discovered:: 2013 MDRO Source:: RT SUBCLAVIAN LINE AND SPUTUM CULTURE Past Surgical History: Adenoidectomy, Tonsillectomy Additional Past Surgical History / Comment(s): STOMACH SURGERY X 4 INCLUDES PARTAIL GASTRECTOMY, FOLLOWED BY TOTAL GASTRECTOMY/ESOPHAGECTOMY, FOLLOWED BY ANASTOMOSIS USING PART OF HER COLON,adhesion, reconstructed with bowel, Maria catheter placement and removal multiple times, PICC LINE 09/19/15. R SC mediport 06/2016 Past Anesthesia/Blood Transfusion Reactions: Motion Sickness Past Psychological History: Depression Smoking Status: Former smoker Past Alcohol Use History: None Reported Past Drug Use History: None Reported - Past Family History Mother Family Medical History: COPD, Myocardial Infarction ([place]) Father Family Medical History: Renal Disease Sister(s) Family Medical History: Respiratory Disorder Brother(s) Family Medical History: No Reported History Daughter(s) Family Medical History: No Reported History Medications and Allergies Home Medications Medication Instructions Recorded Confirmed Type Cyclobenzaprine [Flexeril] 10 mg PO BID 03/02/14 06/13/17 History Diclofenac Potassium [Cataflam] 50 mg PO TID 03/02/14 06/13/17 History Fluticasone/Salmeterol [Advair 1 puff INHALATION RT-DAILY 03/02/14 06/13/17 History 500-50 Diskus] Levalbuterol Hfa Inhaler [Xopenex 1 - 2 puff INHALATION RT-QID 03/02/14 History Hfa Inhaler] Levothyroxine Sodium [Synthroid] 100 mcg PO DAILY 03/02/14 06/13/17 History Tiotropium 18 Mcg/Puff [Spiriva] 1 cap INHALATION RT-DAILY 03/02/14 06/13/17 History traZODone HCL [Desyrel] 100 mg PO HS 03/02/14 06/13/17 History Butalb/Asprin/Caff 50-325-40Mg 1 - 2 cap PO Q4HR PRN MDD 6 09/14/15 06/13/17 History [Fiorinal 50-325-40 MG] tablets in 24 hours Calcitonin,[place],Synthetic 1 spray NS DAILY 09/14/15 06/13/17 History [Miacalcin] DULoxetine HCL [Cymbalta] 60 mg PO QAM 09/14/15 06/13/17 History DULoxetine HCL [Cymbalta] 30 mg PO HS 02/23/16 06/13/17 History Gabapentin [Neurontin] 100 mg PO DAILY 06/15/16 06/13/17 History Metoprolol Tartrate [Lopressor] 25 mg PO BID 04/18/17 06/13/17 History Aspirin 81 mg PO DAILY 06/13/17 06/13/17 History Biotin 10 mg PO DAILY 06/13/17 06/13/17 History Cholecalciferol [Vitamin D3] 3,000 unit PO DAILY 06/13/17 06/13/17 History Cyanocobalamin (Vitamin B-12) 1,000 mcg PO DAILY 06/13/17 06/13/17 History [Vitamin B-12] Ergocalciferol (Vitamin D2) 50,000 unit PO Q30D 06/13/17 06/13/17 History [Vitamin D2] Fluticasone Nasal [place] [Flonase 1 spray EA NOSTRIL DAILY PRN 06/13/17 06/13/17 History Nasal [place]] Folic Acid 1 mg PO DAILY 06/13/17 06/13/17 History Gabapentin [Neurontin] 200 mg PO DAILY@1400 06/13/17 06/13/17 History Gabapentin [Neurontin] 300 mg PO DAILY@1800 06/13/17 06/13/17 History HYDROcodone/APAP 10-325MG [[place] 1 tab PO TID PRN 06/13/17 06/13/17 History 10-325] LORazepam [Ativan] 1 mg PO BID PRN 06/13/17 06/13/17 History Magnesium Oxide [Mag-Ox] 400 mg PO DAILY 06/13/17 06/13/17 History Montelukast [Singulair] 10 mg PO HS 06/13/17 06/13/17 History Multivitamins, Thera [Multivitamin 1 tab PO DAILY 06/13/17 06/13/17 History (formulary)] Nystatin 100,000Unit/gm Cream 1 applic TOPICAL TID PRN 06/13/17 06/13/17 History [Mycostatin Cream] Allergies Allergy/AdvReac Type Severity Reaction Status Date / Time metoclopramide HCl Allergy Severe Hallucinati Verified 06/13/17 11:04 [From Reglan] ons Penicillins Allergy Severe Rash/Hives Verified 06/13/17 11:04 piperacillin sodium Allergy Severe Unknown Verified 06/13/17 11:04 [From Zosyn] Sulfa (Sulfonamide Allergy Severe hives Verified 06/13/17 11:04 Antibiotics) tazobactam sodium Allergy Severe Unknown Verified 06/13/17 11:04 [From Zosyn] cimetidine Allergy Intermediate Rash/Hives Verified 06/13/17 11:04 cimetidine HCl [From Tagamet] Allergy Rash/Hives Verified 06/13/17 11:04 Physical Exam Vitals: Vital Signs Temp Pulse Pulse Resp BP BP Pulse Ox 06/14/17 16:00 97.8 F 86 90 19 96/47 95 06/14/17 15:30 89 18 107/57 93 L 06/14/17 15:19 100 06/14/17 15:00 93 23 99/48 97 06/14/17 14:40 98.5 F 90 26 H 90/43 96 06/14/17 14:30 89 26 H 87/47 97 06/14/17 14:00 89 26 H 92/44 97 06/14/17 13:30 94 28 H 100/50 99 06/14/17 12:29 101.9 F H 99 27 H 99/54 96 06/14/17 12:00 100 26 H 103/54 97 06/14/17 11:54 96 06/14/17 11:47 96 26 H 89/54 98 06/14/17 11:41 98 06/14/17 11:25 92 06/14/17 11:00 100.1 F H 90 23 81/50 100 06/14/17 10:45 92 23 83/48 94 L 06/14/17 10:30 96 26 H 93/51 92 L 06/14/17 10:15 98 25 H 89/50 91 L 06/14/17 10:00 100 26 H 90/53 91 L 06/14/17 09:45 104 H 26 H 96/51 83 L 06/14/17 09:30 101.3 F H 102 H 28 H 124/58 83 L 06/14/17 09:15 101 H 29 H 108/52 88 L 06/14/17 09:00 116 H 31 H 109/47 96 06/14/17 08:30 112 H 33 H 122/58 99 06/14/17 07:25 114 H 84 L 06/14/17 04:00 97.3 F L 111 H 34 H 135/78 93 L 06/14/17 00:00 97.6 F 115 H 18 114/51 96 06/13/17 20:00 97.0 F L 110 H 35 H 119/69 96 06/13/17 19:26 114 H 06/13/17 19:11 112 H 06/13/17 17:18 97.0 F L 101 H 31 H 125/61 99 06/13/17 17:15 101 H 24 Intake and Output 06/14/17 06/14/17 06/14/17 06:59 14:59 22:59 Intake Total 1558.118 227.724 Output Total 620 600 Balance 938.118 -372.276 Intake: IV 1530 200 ACETAMINOPHEN IV (For NPO 100 ) 1,000 mg In Empty Bag 1 bag @ 400 mls/hr IVPB Q6HR PRN Rx#:[id number] Calcium Gluconate 1,000 100 mg In Sodium Chloride 0.9 % 100 ml @ 100 mls/hr IVPB ONCE ONE Rx#: [id number] Cefepime 2 gm In Sodium 50 Chloride 0.9% 50 ml @ 100 mls/hr IVPB ONCE STA Rx# :[id number] Levofloxacin 750Mg-D5w 150 Pmx 750 mg In Dextrose/ Water 1 150ml.bag @ 100 mls/hr IVPB Q24H [facility] Rx#: [id number] Mvi, Adult No.4 with Vit 30 K 10 ml Trace (Conc-1Ml/ Dose) 1 ml Sodium Chloride 4Meq/ml Vial 20 meq In Amino Acid 5%-D15w +Lytes*E* 1,000 ml @ 30 mls/hr IV .Q24H [facility] Rx#: [id number] Sodium Chloride 0.9% 1, 600 200 000 ml @ 100 mls/hr IV . Q10H [facility] Rx#:[id number] Sodium Chloride 0.9% 500 500 ml @ 999 mls/hr IV .Q31M [facility] Rx#:[id number] Intake, IV Titration 28.118 27.724 Amount Propofol 1,000 mg In 100 28.118 27.724 ml @ Titrate IV .Q0M [facility] Rx#:[id number] Output: Urine 620 600 Other: Voiding Method Bedside Commode Indwelling Catheter Indwelling Catheter Weight 49.2 kg 49.2 kg Patient Weight 06/15/17 06:59 Weight 49.2 kg General appearance: The patient is intubated and sedated on mechanical ventilation. HET: Head is normocephalic and atraumatic. Pupils are equal and reactive. Oropharynx is clear without lesions. Neck: Supple without lymphadenopathy. Trachea midline. Heart: S1 S2. Regular rate and rhythm. Lungs: No definite crackles or wheezes are heard. Abdomen: Soft, nontender, nondistended with bowel sounds. No peritoneal signs. No palpable organomegaly or masses. Extremities: Normal skin color and turgor. No cyanosis, rash, ulceration, clubbing, or edema. Radial and pedal pulses are 2/4 bilaterally. Neurological: Deeply sedated. Results CBC & Chem 7: 06/14/17 06:00 06/14/17 06:00 Labs: Abnormal Lab Results - Last 24 Hours (Table) 06/13/17 06/14/17 06/14/17 Range/Units 20:53 06:00 06:00 WBC 22.5 H (3.8-10.6) k/uL ABG pH (7.35-7.45) ABG pCO2 (35-45) mmHg ABG pO2 (83-108) mmHg ABG Total CO2 (19-24) mmol/L ABG O2 Saturation (94-97) % Sodium 126 L (137-145) mmol/L Chloride 95 L (98-107) mmol/L Creatinine 0.39 L (0.52-1.04) mg/dL Glucose 112 H (74-99) mg/dL POC Glucose (mg/dL) 147 H (75-99) mg/dL Calcium 7.7 L (8.4-10.2) mg/dL Albumin (3.5-5.0) g/dL Urine Appearance (Clear) Urine Protein (Negative) Urine Ketones (Negative) Urine Blood (Negative) Urine RBC (0-5) /hpf Hyaline Casts (0-2) /lpf Urine Mucus (None) /hpf 06/14/17 06/14/17 06/14/17 Range/Units 06:11 07:14 07:35 WBC (3.8-10.6) k/uL ABG pH 7.04 L* (7.35-7.45) ABG pCO2 94 H* (35-45) mmHg ABG pO2 (83-108) mmHg ABG Total CO2 27 H (19-24) mmol/L ABG O2 Saturation 89.0 L (94-97) % Sodium (137-145) mmol/L Chloride (98-107) mmol/L Creatinine (0.52-1.04) mg/dL Glucose (74-99) mg/dL POC Glucose (mg/dL) 137 H 124 H (75-99) mg/dL Calcium (8.4-10.2) mg/dL Albumin (3.5-5.0) g/dL Urine Appearance (Clear) Urine Protein (Negative) Urine Ketones (Negative) Urine Blood (Negative) Urine RBC (0-5) /hpf Hyaline Casts (0-2) /lpf Urine Mucus (None) /hpf 06/14/17 06/14/17 06/14/17 Range/Units 09:15 09:30 10:47 WBC (3.8-10.6) k/uL ABG pH 7.24 L (7.35-7.45) ABG pCO2 51 H (35-45) mmHg ABG pO2 416 H (83-108) mmHg ABG Total CO2 (19-24) mmol/L ABG O2 Saturation 99.0 H (94-97) % Sodium (137-145) mmol/L Chloride (98-107) mmol/L Creatinine (0.52-1.04) mg/dL Glucose (74-99) mg/dL POC Glucose (mg/dL) (75-99) mg/dL Calcium (8.4-10.2) mg/dL Albumin 2.6 L (3.5-5.0) g/dL Urine Appearance Cloudy H (Clear) Urine Protein 2+ H (Negative) Urine Ketones 1+ H (Negative) Urine Blood Moderate H (Negative) Urine RBC 7 H (0-5) /hpf Hyaline Casts 3 H (0-2) /lpf Urine Mucus Rare H (None) /hpf 06/14/17 Range/Units 12:29 WBC (3.8-10.6) k/uL ABG pH (7.35-7.45) ABG pCO2 (35-45) mmHg ABG pO2 (83-108) mmHg ABG Total CO2 (19-24) mmol/L ABG O2 Saturation (94-97) % Sodium (137-145) mmol/L Chloride (98-107) mmol/L Creatinine (0.52-1.04) mg/dL Glucose (74-99) mg/dL POC Glucose (mg/dL) 142 H (75-99) mg/dL Calcium (8.4-10.2) mg/dL Albumin (3.5-5.0) g/dL Urine Appearance (Clear) Urine Protein (Negative) Urine Ketones (Negative) Urine Blood (Negative) Urine RBC (0-5) /hpf Hyaline Casts (0-2) /lpf Urine Mucus (None) /hpf Microbiology - Last 24 Hours (Table) 06/14/17 11:15 Sputum Culture - Preliminary Sputum 06/13/17 10:53 Blood Culture - Preliminary Blood No Growth after 24 hours Assessment and Plan Plan: 61-year old female with respiratory failure with need for endoscopic placement of OG tube because of above history. Will plan EGD at bedside today.
[2017-06-14] MEDS: LORazepam 2 MG/ML INJ IV PRN (17:39)
--- NOTE | 2017-06-14 17:56 | P.PCN ---
Date of Procedure: 06/14/17 Procedure(s) Performed: Procedure: EGD for placement of OG tube. Preoperative diagnosis: Respiratory failure on mechanical ventilation with requirement for placement of OG tube endoscopically. Post-operative diagnosis: Successful placement of 16 bel[place]ian NG tube under endoscopic monitoring. Preparation and sedation: were provided in the ICU, as patient was deeply sedated and on mechanical ventilation. Brief clinical history: The patient is a 61-year old female with COPD who was admited with fever and SOB. Had hypoxic respiratory failure and had to be intubated and mechanically ventilated this morning. OG tube could not be placed safely. We will asked to see her for placement of OG tube endoscopically. The patient has history of PUD and complicated reflux disease and had total gasrectomy as well as esophagectomy with colonic interposition. Procedure: With the patient in the supine position, with her being deeply sedated and mechanically ventilated, I passed under direct vision the Olympus- GIF 160 video upper endoscope through the cricopharyngeus down the colonic segment that was interposed after her esophagectomy. I then advanced the endoscope into the small bowel. The patient had total gastrectomy as well. At this point, and while endoscopically monitoring, I passed a 16-Upper Sorbian NG tube through the mouth alongside the endoscope. I continued to advance the tube into the small bowel under direct vision. Once it was satisfactorily placed, the endoscope was withdrawn while maintaining the position of the NG tube. The patient tolerated the procedure well and did not have any immediate complications. Plan: The tube can be safely used for intermittent suction or feeding as its position has been endoscopically verified. I would be happy to see her if we could be of any further assistance.
[2017-06-14 18:12] LABS: Glucose,Whole Blood 155 mg/dL (75-99)
[2017-06-14] MEDS: MONTELUKAST 10 MG TAB PO SCH (21:20)
[2017-06-14] MEDS: DULoxetine HCL 30 MG CAPSULE.DR PO SCH (21:20)
--- NOTE | 2017-06-14 22:12 | P.CONS ---
History of Present Illness - Reason for Consult Consult date: 06/14/17 - Chief Complaint shortness of breath - History of Present Illness 61-year-old female presents to the emergency center complaining of significant shortness of breath. She is well-known to the pulmonology group as well as infectious disease regarding her many pulmonary infections and bouts of sepsis in the past. She has advanced pulmonary disease with Gold stage III lung disease. She often utilizes oxygen and has been on steroids intermittently. At the time of presentation a is a center she was profoundly short of breath. She required initiation of BiPAP to maintain her respiratory status. Her respiratory status deteriorated and she required intubation with mechanical ventilation earlier today and she was moved to intensive care unit for ongoing care. She is not having Laura and hypotension but has ongoing respiratory failure. Nursing staff relates the time of intubation a gross amount of grossly purulent secretions were obtained from the endotracheal tube. Since she has had some significant improvement of her pulmonary status and her oxygenation. She has a history of multiple infections including Pseudomonas aeruginosa. She has had port infection last one is for more a year ago. At this time as noted she is intubated sedated and mechanically ventilated. She is comfortable. The nursing staff relates to no other acute concerns and has been improvement of her ventilation. Review of Systems ROS unobtainable: due to endotracheal tube Past Medical History Past Medical History: Heart Failure, COPD, Fibromyalgia, GERD/Reflux, GI Bleed, Musculoskeletal Disorder, Osteoarthritis (OA), Pneumonia, Thyroid Disorder Additional Past Medical History / Comment(s): HX OF PEPTIC ULCER DISEASE 1992, 2006 DEVELOPED MALABSORPTION SYNDROME/DIARRHEA. Vitamin D deficiency. Migraines. Cardiomyopathy , protein calorie malnutrition. Cachexia. Osteoporosis. DDD cervical- lumbar spine. Recurrent Pneumonia, Bacterial Infections. MILD STROKE 2006 EST. 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 ON IV TPPN DAILY [id number]. History of Any Multi-Drug Resistant Organisms: MRSA Year Discovered:: 2013 MDRO Source:: RT SUBCLAVIAN LINE AND SPUTUM CULTURE Past Surgical History: Adenoidectomy, Tonsillectomy Additional Past Surgical History / Comment(s): STOMACH SURGERY X 4 INCLUDES PARTAIL GASTRECTOMY, FOLLOWED BY TOTAL GASTRECTOMY/ESOPHAGECTOMY, FOLLOWED BY ANASTOMOSIS USING PART OF HER COLON,adhesion, reconstructed with bowel, Maria catheter placement and removal multiple times, PICC LINE 09/19/15. 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 History of tobacco use. No recreational Drug use. No experience. No extensive travel. Pet dog Smoking Status: Former smoker Past Alcohol Use History: None Reported Past Drug Use History: None Reported - Past Family History Mother Family Medical History: COPD, Myocardial Infarction ([place]) Father Family Medical History: Renal Disease Sister(s) Family Medical History: Respiratory Disorder Brother(s) Family Medical History: No Reported History Daughter(s) Family Medical History: No Reported History Medications and Allergies Home Medications and Allergies Comment(s): Current Medications Acetaminophen/Butalbital/Caffeine (Fioricet 50-325-40) 1 each PO Q4HR PRN PRN Reason: Migraine Headache Hydrocodone Bitart/Acetaminophen ([place] 10) 1 each PO TID PRN PRN Reason: Pain Last Admin: 06/13/17 21:43 Dose: 1 each Aspirin (Aspirin) 81 mg PO DAILY [facility] Last Admin: 06/14/17 08:39 Dose: Not Given Budesonide (Pulmicort) 1 mg INHALATION RT-BID [facility] Last Admin: 06/14/17 19:53 Dose: 1 mg Chlorhexidine Gluconate (Peridex) 15 ml MUCOUS MEM BID [facility] Last Admin: 06/14/17 21:18 Dose: 15 ml Cholecalciferol (Vitamin D3) 3,000 unit PO 1200 [facility] Last Admin: 06/14/17 11:26 Dose: Not Given Duloxetine HCl (Cymbalta) 60 mg PO QAM [facility] Last Admin: 06/14/17 08:39 Dose: Not Given Duloxetine HCl (Cymbalta) 30 mg PO HS [facility] Last Admin: 06/14/17 21:20 Dose: 30 mg Enoxaparin Sodium (Lovenox) 40 mg SQ DAILY [facility] Last Admin: 06/14/17 08:39 Dose: Not Given Fluticasone Propionate (Flonase Nasal [place]) 1 spray EA NOSTRIL DAILY PRN PRN Reason: Allergy Symptoms Folic Acid (Folic Acid) 1 mg PO 1200 [facility] Last Admin: 06/14/17 11:26 Dose: Not Given Hydromorphone HCl (Dilaudid) 0.5 mg IVP Q4HR PRN PRN Reason: Pain Last Admin: 06/14/17 15:19 Dose: 0.5 mg Levofloxacin 750 mg/ IV (Solution) 150 mls @ 100 mls/hr IVPB Q24H [facility] Stop: 06/26/17 11:01 Last Admin: 06/14/17 11:26 Dose: 100 mls/hr Sodium Chloride (Saline 0.9%) 1,000 mls @ 100 mls/hr IV .Q10H [facility] Last Admin: 06/14/17 18:07 Dose: 100 mls/hr Cefepime HCl 2 gm/ Sodium (Chloride) 50 mls @ 100 mls/hr IVPB Q12HR [facility] Last Admin: 06/14/17 21:23 Dose: 100 mls/hr Propofol (Diprivan) 1,000 mg in 100 mls @ 0 mls/hr IV .Q0M [facility]; Titrate PRN Reason: Protocol Last Admin: 06/14/17 15:12 Dose: 45 mcg/kg/min, 13.284 mls/hr Parenteral Vitamin Supplement 10 ml/ Chromium/Copper/Manganese/Seleni/Zn 1 ml/ Sodium Chloride 20 meq/ Amino Ac/Electrol/Dextrose/Calcium 1,016 mls @ 30 mls/ hr IV .Q24H [facility] Last Admin: 06/14/17 14:05 Dose: 30 mls/hr Acetaminophen 1,000 mg/ IV (Solution) 100 mls @ 400 mls/hr IVPB Q6HR PRN PRN Reason: Fever>101 Stop: 06/15/17 06:14 Last Admin: 06/14/17 13:22 Dose: 400 mls/hr Norepinephrine Bitartrate (Levophed-0.9% Nacl 16 Mg/250ml Pmx) 16 mg in 250 mls @ 0 mls/hr IV .Q0M [facility]; Titrate PRN Reason: Protocol Insulin Human Lispro (Humalog) 0 unit SQ Q6H [facility] PRN Reason: Protocol Last Admin: 06/14/17 18:11 Dose: 2 unit Levalbuterol HCl (Xopenex Nebulized) 1.25 mg INHALATION RT-Q2H PRN PRN Reason: Bronchospasm Levalbuterol HCl (Xopenex Nebulized) 1.25 mg INHALATION RT-QID [facility] Last Admin: 06/14/17 19:53 Dose: 1.25 mg Levothyroxine Sodium (Synthroid Ivp) 50 mcg IV DAILY [facility] Lorazepam (Ativan) 1 mg IV Q4HR PRN PRN Reason: Anxiety Last Admin: 06/14/17 17:39 Dose: 1 mg Lorazepam (Ativan) 1 mg PO BID PRN PRN Reason: Anxiety Last Admin: 06/13/17 21:29 Dose: 1 mg Magnesium Oxide (Mag-Ox) 400 mg PO 1200 [facility] Last Admin: 06/14/17 11:26 Dose: Not Given Methylprednisolone Sodium Succinate (Solu-Medrol) 60 mg IV Q6HR [facility] Last Admin: 06/14/17 18:06 Dose: 60 mg Metoprolol Tartrate (Lopressor) 25 mg PO BID [facility] Last Admin: 06/14/17 20:24 Dose: Not Given Miscellaneous Information (Pneumonia Protocol Utilized) 1 each PO ONCE PRN PRN Reason: Per Protocol Miscellaneous Information (Magnesium Per Protocol) 1 each MISCELLANE DAILY PRN ; Protocol PRN Reason: Per Protocol Montelukast Sodium (Singulair) 10 mg PO HS [facility] Last Admin: 06/14/17 21:20 Dose: 10 mg Naloxone HCl (Narcan) 0.2 mg IV Q2M PRN PRN Reason: Opioid Reversal Pantoprazole Sodium (Protonix) 40 mg IV DAILY [facility] Last Admin: 06/14/17 11:25 Dose: 40 mg Tiotropium [place] (Spiriva) 1 puff INHALATION RT-DAILY [facility] Last Admin: 06/14/17 07:52 Dose: Not Given Home Medications Medication Instructions Recorded Confirmed Type Cyclobenzaprine [Flexeril] 10 mg PO BID 03/02/14 06/13/17 History Diclofenac Potassium [Cataflam] 50 mg PO TID 03/02/14 06/13/17 History Fluticasone/Salmeterol [Advair 1 puff INHALATION RT-DAILY 03/02/14 06/13/17 History 500-50 Diskus] Levalbuterol Hfa Inhaler [Xopenex 1 - 2 puff INHALATION RT-QID 03/02/14 History Hfa Inhaler] Levothyroxine Sodium [Synthroid] 100 mcg PO DAILY 03/02/14 06/13/17 History Tiotropium 18 Mcg/Puff [Spiriva] 1 cap INHALATION RT-DAILY 03/02/14 06/13/17 History traZODone HCL [Desyrel] 100 mg PO HS 03/02/14 06/13/17 History Butalb/Asprin/Caff 50-325-40Mg 1 - 2 cap PO Q4HR PRN MDD 6 09/14/15 06/13/17 History [Fiorinal 50-325-40 MG] tablets in 24 hours Calcitonin,[place],Synthetic 1 spray NS DAILY 09/14/15 06/13/17 History [Miacalcin] DULoxetine HCL [Cymbalta] 60 mg PO QAM 09/14/15 06/13/17 History DULoxetine HCL [Cymbalta] 30 mg PO HS 02/23/16 06/13/17 History Gabapentin [Neurontin] 100 mg PO DAILY 06/15/16 06/13/17 History Metoprolol Tartrate [Lopressor] 25 mg PO BID 04/18/17 06/13/17 History Aspirin 81 mg PO DAILY 06/13/17 06/13/17 History Biotin 10 mg PO DAILY 06/13/17 06/13/17 History Cholecalciferol [Vitamin D3] 3,000 unit PO DAILY 06/13/17 06/13/17 History Cyanocobalamin (Vitamin B-12) 1,000 mcg PO DAILY 06/13/17 06/13/17 History [Vitamin B-12] Ergocalciferol (Vitamin D2) 50,000 unit PO Q30D 06/13/17 06/13/17 History [Vitamin D2] Fluticasone Nasal [place] [Flonase 1 spray EA NOSTRIL DAILY PRN 06/13/17 06/13/17 History Nasal [place]] Folic Acid 1 mg PO DAILY 06/13/17 06/13/17 History Gabapentin [Neurontin] 200 mg PO DAILY@1400 06/13/17 06/13/17 History Gabapentin [Neurontin] 300 mg PO DAILY@1800 06/13/17 06/13/17 History HYDROcodone/APAP 10-325MG [[place]sc[place] 1 tab PO TID PRN 06/13/17 06/13/17 History 10-325] LORazepam [Ativan] 1 mg PO BID PRN 06/13/17 06/13/17 History Magnesium Oxide [Mag-Ox] 400 mg PO DAILY 06/13/17 06/13/17 History Montelukast [Singulair] 10 mg PO HS 06/13/17 06/13/17 History Multivitamins, Thera [Multivitamin 1 tab PO DAILY 06/13/17 06/13/17 History (formulary)] Nystatin 100,000Unit/gm Cream 1 applic TOPICAL TID PRN 06/13/17 06/13/17 History [Mycostatin Cream] Allergies Allergy/AdvReac Type Severity Reaction Status Date / Time metoclopramide HCl Allergy Severe Hallucinati Verified 06/13/17 11:04 [From Reglan] ons Penicillins Allergy Severe Rash/Hives Verified 06/13/17 11:04 piperacillin sodium Allergy Severe Unknown Verified 06/13/17 11:04 [From Zosyn] Sulfa (Sulfonamide Allergy Severe hives Verified 06/13/17 11:04 Antibiotics) tazobactam sodium Allergy Severe Unknown Verified 06/13/17 11:04 [From Zosyn] cimetidine Allergy Intermediate Rash/Hives Verified 06/13/17 11:04 cimetidine HCl [From Tagamet] Allergy Rash/Hives Verified 06/13/17 11:04 Physical Exam Vitals: Vital Signs Temp Pulse Pulse Resp BP BP Pulse Ox 06/14/17 21:00 87 18 103/57 99 06/14/17 20:46 87 06/14/17 20:30 83 19 93/47 100 06/14/17 20:00 98.3 F 83 90 18 91/48 100 06/14/17 19:55 85 06/14/17 19:30 85 18 87/49 99 06/14/17 19:00 85 19 86/50 99 06/14/17 18:30 85 19 90/51 99 06/14/17 18:00 84 18 81/44 97 06/14/17 17:30 84 18 95/51 97 06/14/17 17:00 87 18 96/46 96 06/14/17 16:30 86 19 93/48 96 06/14/17 16:00 97.8 F 86 90 19 96/47 95 06/14/17 15:30 89 18 107/57 93 L 06/14/17 15:19 100 06/14/17 15:00 93 23 99/48 97 06/14/17 14:40 98.5 F 90 26 H 90/43 96 06/14/17 14:30 89 26 H 87/47 97 06/14/17 14:00 89 26 H 92/44 97 06/14/17 13:30 94 28 H 100/50 99 06/14/17 12:29 101.9 F H 99 27 H 99/54 96 06/14/17 12:00 100 26 H 103/54 97 06/14/17 11:54 96 06/14/17 11:47 96 26 H 89/54 98 06/14/17 11:41 98 06/14/17 11:25 92 06/14/17 11:00 100.1 F H 90 23 81/50 100 06/14/17 10:45 92 23 83/48 94 L 06/14/17 10:30 96 26 H 93/51 92 L 06/14/17 10:15 98 25 H 89/50 91 L 06/14/17 10:00 100 26 H 90/53 91 L 06/14/17 09:45 104 H 26 H 96/51 83 L 06/14/17 09:30 101.3 F H 102 H 28 H 124/58 83 L 06/14/17 09:15 101 H 29 H 108/52 88 L 06/14/17 09:00 116 H 31 H 109/47 96 06/14/17 08:30 112 H 33 H 122/58 99 06/14/17 07:25 114 H 84 L 06/14/17 04:00 97.3 F L 111 H 34 H 135/78 93 L 06/14/17 00:00 97.6 F 115 H 18 114/51 96 Intake and Output 06/14/17 06/14/17 06/14/17 06:59 14:59 22:59 Intake Total 1558.118 987.724 Output Total 620 950 Balance 938.118 37.724 Intake: IV 1530 960 ACETAMINOPHEN IV (For NPO 100 ) 1,000 mg In Empty Bag 1 bag @ 400 mls/hr IVPB Q6HR PRN Rx#:[id number] Calcium Gluconate 1,000 100 mg In Sodium Chloride 0.9 % 100 ml @ 100 mls/hr IVPB ONCE ONE Rx#: [id number] Cefepime 2 gm In Sodium 50 Chloride 0.9% 50 ml @ 100 mls/hr IVPB ONCE [facility] Rx# :[id number] Cefepime 2 gm In Sodium 50 Chloride 0.9% 50 ml @ 100 mls/hr IVPB Q12HR [facility] Rx #:[id number] Levofloxacin 750Mg-D5w 150 Pmx 750 mg In Dextrose/ Water 1 150ml.bag @ 100 mls/hr IVPB Q24H [facility] Rx#: [id number] Mvi, Adult No.4 with Vit 30 210 K 10 ml Trace (Conc-1Ml/ Dose) 1 ml Sodium Chloride 4Meq/ml Vial 20 meq In Amino Acid 5%-D15w +Lytes*E* 1,000 ml @ 30 mls/hr IV .Q24H [facility] Rx#: [id number] Sodium Chloride 0.9% 1, 600 700 000 ml @ 100 mls/hr IV . Q10H [facility] Rx#:[id number] Sodium Chloride 0.9% 500 500 ml @ 999 mls/hr IV .Q31M ONE Rx#:[id number] Intake, IV Titration 28.118 27.724 Amount Propofol 1,000 mg In 100 28.118 27.724 ml @ Titrate IV .Q0M [facility] Rx#:[id number] Output: Urine 620 950 Other: Voiding Method Bedside Commode Indwelling Catheter Indwelling Catheter Weight 49.2 kg 49.2 kg Patient Weight 06/15/17 06:59 Weight 49.2 kg 61-year-old female who was admitted very thin but not cachectic build. She is intubated sedated and mechanically ventilated. HEENT: Anicteric conjunctiva are pink and moist nasal mucosa grossly intact without significant lesions, there is no thrush. No lesions noted around the endotracheal tube Neck: The neck is supple without significant lymphadenopathy or thyromegaly. Lungs: There is symmetrical air entry. There are coarse crackles and wheezes scattered throughout the lung jeter.) Considerably better than prior. Minimal dullness is noted to the bilateral bases. Heart: Regular rate and rhythm with an audible S1-S2, no S3 no S4. There is no significant murmur click or rub, PMI was nondisplaced. Abdomen: Positive bowel sounds soft and nontender without palpable masses or organomegaly. There was no guarding or rebound. Extremities: The upper extremities have excellent pulses they are symmetric, no significant petechiae or telangiectasia. No splinter hemorrhages were noted. The lower extremities are free from significant edema. The peripheral pulses were 2+ and symmetric. Neuro: Sedated Results CBC & Chem 7: 06/14/17 06:00 06/14/17 06:00 Labs: Abnormal Lab Results - Last 24 Hours (Table) 06/14/17 06/14/17 06/14/17 Range/Units 06:00 06:00 06:11 WBC 22.5 H (3.8-10.6) k/uL ABG pH (7.35-7.45) ABG pCO2 (35-45) mmHg ABG pO2 (83-108) mmHg ABG Total CO2 (19-24) mmol/L ABG O2 Saturation (94-97) % Sodium 126 L (137-145) mmol/L Chloride 95 L (98-107) mmol/L Creatinine 0.39 L (0.52-1.04) mg/dL Glucose 112 H (74-99) mg/dL POC Glucose (mg/dL) 137 H (75-99) mg/dL Calcium 7.7 L (8.4-10.2) mg/dL Albumin (3.5-5.0) g/dL Urine Appearance (Clear) Urine Protein (Negative) Urine Ketones (Negative) Urine Blood (Negative) Urine RBC (0-5) /hpf Hyaline Casts (0-2) /lpf Urine Mucus (None) /hpf 06/14/17 06/14/17 06/14/17 Range/Units 07:14 07:35 09:15 WBC (3.8-10.6) k/uL ABG pH 7.04 L* 7.24 L (7.35-7.45) ABG pCO2 94 H* 51 H (35-45) mmHg ABG pO2 416 H (83-108) mmHg ABG Total CO2 27 H (19-24) mmol/L ABG O2 Saturation 89.0 L 99.0 H (94-97) % Sodium (137-145) mmol/L Chloride (98-107) mmol/L Creatinine (0.52-1.04) mg/dL Glucose (74-99) mg/dL POC Glucose (mg/dL) 124 H (75-99) mg/dL Calcium (8.4-10.2) mg/dL Albumin (3.5-5.0) g/dL Urine Appearance (Clear) Urine Protein (Negative) Urine Ketones (Negative) Urine Blood (Negative) Urine RBC (0-5) /hpf Hyaline Casts (0-2) /lpf Urine Mucus (None) /hpf 06/14/17 06/14/17 06/14/17 Range/Units 09:30 10:47 12:29 WBC (3.8-10.6) k/uL ABG pH (7.35-7.45) ABG pCO2 (35-45) mmHg ABG pO2 (83-108) mmHg ABG Total CO2 (19-24) mmol/L ABG O2 Saturation (94-97) % Sodium (137-145) mmol/L Chloride (98-107) mmol/L Creatinine (0.52-1.04) mg/dL Glucose (74-99) mg/dL POC Glucose (mg/dL) 142 H (75-99) mg/dL Calcium (8.4-10.2) mg/dL Albumin 2.6 L (3.5-5.0) g/dL Urine Appearance Cloudy H (Clear) Urine Protein 2+ H (Negative) Urine Ketones 1+ H (Negative) Urine Blood Moderate H (Negative) Urine RBC 7 H (0-5) /hpf Hyaline Casts 3 H (0-2) /lpf Urine Mucus Rare H (None) /hpf 06/14/17 Range/Units 18:10 WBC (3.8-10.6) k/uL ABG pH (7.35-7.45) ABG pCO2 (35-45) mmHg ABG pO2 (83-108) mmHg ABG Total CO2 (19-24) mmol/L ABG O2 Saturation (94-97) % Sodium (137-145) mmol/L Chloride (98-107) mmol/L Creatinine (0.52-1.04) mg/dL Glucose (74-99) mg/dL POC Glucose (mg/dL) 155 H (75-99) mg/dL Calcium good (Negative) Urine Blood (Negative) Urine RBC (0-5) /hpf Hyaline Casts (0-2) /lpf Urine Mucus (None) /hpf Microbiology - Last 24 Hours (Table) 06/14/17 09:30 Urine Culture - Preliminary Urine,Catheterized 06/14/17 11:15 Sputum Culture - Preliminary Sputum 06/13/17 10:53 Blood Culture - Preliminary Blood No Growth after 24 hours Laboratory Results WBC 22.5 k/uL (3.8-10.6) H 06/14/17 06:00 RBC 4.34 m/uL (3.80-5.40) 06/14/17 06:00 Hgb 14.0 gm/dL (11.4-16.0) 06/14/17 06:00 Hct 42.7 % (34.0-46.0) 06/14/17 06:00 MCV 98.2 fL (80.0-100.0) 06/14/17 06:00 MCH 32.2 pg (25.0-35.0) 06/14/17 06:00 MCHC 32.8 g/dL (31.0-37.0) 06/14/17 06:00 RDW 13.6 % (11.5-15.5) 06/14/17 06:00 Plt Count 265 k/uL (150-450) 06/14/17 06:00 Neutrophils % 95 % 06/13/17 10:53 Lymphocytes % 2 % 06/13/17 10:53 Monocytes % 2 % 06/13/17 10:53 Eosinophils % 0 % 06/13/17 10:53 Basophils % 0 % 06/13/17 10:53 Neutrophils # 13.8 k/uL (1.3-7.7) H 06/13/17 10:53 Lymphocytes # 0.3 k/uL (1.0-4.8) L 06/13/17 10:53 Monocytes # 0.3 k/uL (0-1.0) 06/13/17 10:53 Eosinophils # 0.0 k/uL (0-0.7) 06/13/17 10:53 Basophils # 0.0 k/uL (0-0.2) 06/13/17 10:53 PT 10.8 sec (9.0-12.0) 06/13/17 10:53 INR 1.1 (<1.2) 06/13/17 10:53 APTT 35.6 sec (22.0-30.0) H 06/13/17 10:53 Sample Site R radial 06/14/17 09:15 ABG pH 7.24 (7.35-7.45) L 06/14/17 09:15 ABG pCO2 51 mmHg (35-45) H 06/14/17 09:15 ABG pO2 416 mmHg (83-108) H 06/14/17 09:15 ABG HCO3 21 mmol/L (21-25) 06/14/17 09:15 ABG Total CO2 22 mmol/L (19-24) 06/14/17 09:15 ABG O2 Saturation 99.0 % (94-97) H 06/14/17 09:15 ABG Base Excess -5.4 mmol/L 06/14/17 09:15 FiO2 100 % 06/14/17 09:15 Sodium 126 mmol/L (137-145) L 06/14/17 06:00 Potassium 4.8 mmol/L (3.5-5.1) 06/14/17 06:00 Chloride 95 mmol/L (98-107) L 06/14/17 06:00 Carbon Dioxide 22 mmol/L (22-30) 06/14/17 06:00 Anion Gap 9 mmol/L 06/14/17 06:00 BUN 8 mg/dL (7-17) 06/14/17 06:00 Creatinine 0.39 mg/dL (0.52-1.04) L 06/14/17 06:00 Est GFR (MDRD) Af Amer >60 (>60 ml/min/1.73 sqM) 06/14/17 06:00 Est GFR (MDRD) Non-Af >60 (>60 ml/min/1.73 sqM) 06/14/17 06:00 Glucose 112 mg/dL (74-99) H 06/14/17 06:00 POC Glucose (mg/dL) 155 mg/dL (75-99) H 06/14/17 18:10 POC Glu [employer] ID Tayla Rodriguez 06/14/17 18:10 Plasma Lactic Acid [place] 1.0 mmol/L (0.7-2.0) 06/13/17 10:53 Calcium 7.7 mg/dL (8.4-10.2) L 06/14/17 06:00 Ionized Calcium [place] 4.6 mg/dL (4.5-5.3) 06/14/17 10:47 Phosphorus 3.3 mg/dL (2.5-4.5) 06/14/17 06:00 Magnesium 2.2 mg/dL (1.6-2.3) 06/14/17 06:00 Total Bilirubin 0.4 mg/dL (0.2-1.3) 06/13/17 10:53 AST 51 U/L (14-36) H 06/13/17 10:53 ALT 39 U/L (9-52) 06/13/17 10:53 Alkaline Phosphatase 132 U/L (38-126) H 06/13/17 10:53 Total Creatine Kinase 69 U/L (30-135) 06/13/17 10:53 CK-MB (CK-2) 2.0 ng/mL (0.0-2.4) 06/13/17 10:53 CK-MB (CK-2) Rel Index 2.9 06/13/17 10:53 Troponin I 0.135 ng/mL (0.000-0.034) H* 06/13/17 10:53 Total Protein 5.8 g/dL (6.3-8.2) L 06/13/17 10:53 Albumin 2.6 g/dL (3.5-5.0) L 06/14/17 10:47 Triglycerides 114 mg/dL (<150) 06/14/17 10:47 Urine Color Yellow 06/14/17 09:30 Urine Appearance Cloudy (Clear) H 06/14/17 09:30 Urine pH 6.0 (5.0-8.0) 06/14/17 09:30 Ur Specific [place] 1.014 (1.001-1.035) 06/14/17 09:30 Urine Protein 2+ (Negative) H 06/14/17 09:30 Urine Glucose (UA) Negative (Negative) 06/14/17 09:30 Urine Ketones 1+ (Negative) H 06/14/17 09:30 Urine Blood Moderate (Negative) H 06/14/17 09:30 Urine Nitrite Negative (Negative) 06/14/17 09:30 Urine Bilirubin Negative (Negative) 06/14/17 09:30 Urine Urobilinogen <2.0 mg/dL (<2.0) 06/14/17 09:30 Ur Leukocyte Esterase Negative (Negative) 06/14/17 09:30 Urine RBC 7 /hpf (0-5) H 06/14/17 09:30 Urine WBC 4 /hpf (0-5) 06/14/17 09:30 Ur Squamous Epith Cells <1 /hpf (0-4) 06/14/17 09:30 Hyaline Casts 3 /lpf (0-2) H 06/14/17 09:30 Urine Mucus Rare /hpf (None) H 06/14/17 09:30 Mycoplasma pneumon IgM 0.07 INDEX (<=0.90) 06/13/17 10:53 Microbiology 06/14/17 09:30 Urine,Catheterized Urine Culture - Preliminary 06/14/17 11:15 Sputum Sputum Culture - Preliminary 06/13/17 10:53 Blood Blood Culture - Preliminary No Growth after 24 hours Assessment and Plan (1) COPD (chronic obstructive pulmonary disease) Status: Acute (2) Acute respiratory failure Narrative/Plan: 61 year old woman who presents to the emergency center with progressive shortness of breath. Upon presentation she was having difficulties with an exacerbation of her COPD. Despite treatments she required BiPAP therapy for respiratory support. She did not improve significantly and earlier today she developed respiratory failure requiring intubation with sedation and mechanical ventilation. At the time of intubation there was a copious amount of material that was found. This is been sent for culture. She treated with levofloxacin for the exacerbation of her COPD as well as significant supportive measures such as the intubation, and steroid therapy. She is not hypotensive. She has good urinary output. She is tolerating sedation well and is interacting. Consider further help direct her antibiotic therapy. 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 At this time no evidence of any sepsis from this but cultures are pending. Status: Acute
[2017-06-15 00:01] LABS: Glucose,Whole Blood 194 mg/dL (75-99)
[2017-06-15] MEDS: INSULIN LISPRO (humaLOG) 300 UNIT/3 ML VIAL SQ SCH ×5 (00:21→23:41)
[2017-06-15] MEDS: methylPREDNISolone SOD SUCCI 125 MG/2 ML VIAL IV SCH ×5 (00:22→23:41)
[2017-06-15] MEDS: HYDROmorphone 1 MG/ML 1 ML SYRINGE IVP PRN ×2 (02:14→14:47)
[2017-06-15 04:45] LABS: Basophils % (A) 0 %; CH 30.8; CHCM 31.4; Eosinophils % (A) 0 %; HCT 35.7 % (34.0-46.0); HDW 3.02; HGB 11.6 gm/dL (11.4-16.0); Hypochromasia Slight; Luc # (Auto) 0.07; Luc % (Auto) 1; Lymphocytes # (A) 0.3 k/uL (1.0-4.8); Lymphocytes % (A) 3 %; MCH 32.1 pg (25.0-35.0); MCHC 32.5 g/dL (31.0-37.0); MCV 98.6 fL (80.0-100.0); Mean Platelet Volume 6.8; Monocytes # (A) 0.2 k/uL (0-1.0); Monocytes % (A) 2 %; Neutrophils # (A) 10.3 k/uL (1.3-7.7); Neutrophils % (A) 95 %; RBC 3.62 m/uL (3.80-5.40); RDW 13.6 % (11.5-15.5); WBC 10.9 k/uL (3.8-10.6); WBC (Perox) 11.46
[2017-06-15 04:55] LABS: Anion Gap 6 mmol/L; Blood Urea Nitrogen 12 mg/dL (7-17); Calcium 7.6 mg/dL (8.4-10.2); Carbon Dioxide 22 mmol/L (22-30); Chloride 104 mmol/L (98-107); Glucose 164 mg/dL (74-99); Magnesium 1.9 mg/dL (1.6-2.3); Non-African American GFR(MDRD) >60 (>60 ml/min/1.73 sqM); Phosphorus 1.4 mg/dL (2.5-4.5); Potassium 3.5 mmol/L (3.5-5.1); Sodium 132 mmol/L (137-145)
[2017-06-15] MEDS: ACETAMINOPHEN IV (For NPO) 1,000 MG in EMPTY BAG 1 BAG IVPB PRN ×2 (06:11→20:32)
[2017-06-15 06:12] LABS: Glucose,Whole Blood 136 mg/dL (75-99)
[2017-06-15] MEDS: PROPOFOL 1,000 MG/100 ML VIAL IV SCH ×3 (06:15→20:31)
[2017-06-15] MEDS ORDERED: Potassium Replacement Protocol 1 EACH MISC MISCELLANE PRN (06:16)
[2017-06-15] MEDS ORDERED: Phosphorus Replacement Protoco 1 EACH MISC MISCELLANE PRN (06:16)
[2017-06-15] MEDS ORDERED: SODIUM PHOSPHATE 10 MMOL in SODIUM CHLORIDE 0.9% 250 ML IVPB SCH (06:30)
[2017-06-15] MEDS ORDERED: POTASSIUM CHLORIDE 10 MEQ, LIDOCAINE 2% INJ 10 MG in SODIUM CHLORIDE 0.9% 100 ML IV SCH (07:00)
[2017-06-15] MEDS: BUDESONIDE 1 MG/2 ML NEBU INHALATION SCH ×2 (07:30→19:57)
[2017-06-15] MEDS: TIOTROPIUM 18 MCG/PUFF INHALER INHALATION SCH (07:30)
[2017-06-15] MEDS: LEVALBUTEROL NEB 1.25 MG/3 ML AMP INHALATION SCH ×4 (07:30→19:57)
--- NOTE | 2017-06-15 08:09 | XR ---
EXAMINATION TYPE: XR chest 1V portable DATE OF EXAM: 06/15/2017 HISTORY: Tube placement. REFERENCE: Previous study dated 06/14/2017. FINDINGS: The patient is ET tube and NG tube remain in place. There is overinflation of the lungs. There is diffuse alveolar airspace disease on the left and devel oping airspace disease on the right. There is a left-sided effusion. There is slight improvement of t he airspace disease on the left. The heart is not enlarged. IMPRESSION: 1. IMPROVED AERATION, LEFT LUNG. 2. DEVELOPING ALVEOLAR DISEASE IN THE RIGHT LUNG. 3. COPD. 4. SMALL LEFT EFFUSION.
[2017-06-15] MEDS: SODIUM CHLORIDE 0.9% 1,000 ML IV SCH ×2 (08:30→14:40)
[2017-06-15 08:39] LABS: ABG Base Excess -2.7 mmol/L; ABG HCO3 23 mmol/L (21-25); ABG PCO2 46 mmHg (35-45); ABG PH 7.31 (7.35-7.45); ABG PO2 63 mmHg (83-108); ABG TCO2 24 mmol/L (19-24)
[2017-06-15 08:40] LABS: ABG Oxygen Saturation 89.7 % (94-97)
[2017-06-15] MEDS: MAGNESIUM SULFATE-D5W PMX 1 GM in DEXTROSE/WATER 1 100ML.BAG IVPB SCH ×2 (09:09→13:04)
[2017-06-15] MEDS: CHLORHEXIDINE GLUCONATE 15 ML CUP MUCOUS MEM SCH ×2 (09:13→21:19)
[2017-06-15] MEDS: ASPIRIN 81 MG PO SCH (09:13)
[2017-06-15] MEDS: DULoxetine HCL 60 MG CAPSULE.DR PO SCH (09:14)
[2017-06-15] MEDS: ENOXAPARIN 40 MG/0.4 ML SYRINGE SQ SCH (09:14)
[2017-06-15] MEDS: LEVOTHYROXINE IVP 100 MCG/5 ML VIAL IV SCH (09:15)
[2017-06-15] MEDS: METOPROLOL TARTRATE 25 MG TAB PO SCH ×2 (09:16→21:21)
[2017-06-15] MEDS: PANTOPRAZOLE 40 MG/10 ML VIAL IV SCH (09:17)
[2017-06-15] MEDS: LEVOFLOXACIN 750MG-D5W PMX 750 MG in DEXTROSE/WATER 1 150ML.BAG IVPB SCH (11:34)
[2017-06-15] MEDS: CEFEPIME 2 GM in SODIUM CHLORIDE 0.9% 50 ML IVPB SCH ×2 (11:34→21:18)
[2017-06-15 11:50] LABS: Glucose,Whole Blood 105 mg/dL (75-99)
[2017-06-15] MEDS: FOLIC ACID 1 MG TAB PO SCH (11:56)
[2017-06-15] MEDS: CHOLECALCIFEROL 1,000 UNIT TAB PO SCH (11:56)
[2017-06-15] MEDS: MAGNESIUM OXIDE 400 MG TAB PO SCH (11:57)
--- NOTE | 2017-06-15 12:31 | P.PN ---
Subjective Principal diagnosis: Acute hypoxic respiratory failure secondary to pneumonia and COPD This is a very pleasant 61-year-old female patient who follows with Dr. Ledesma as her primary care physician. She has a history of fibromyalgia, degenerative disc disease, hypothyroidism, osteoporosis. She also has a significant history of peptic ulcer disease with previous partial gastrectomy followed by subsequent total gastrectomy and esophagectomy with anastomosis. This has led to malabsorption syndrome and she is nourished with TPN. She follows with Dr. Hills in our office for severe Gold stage III chronic obstructive pulmonary disease. She has also had multiple pulmonary infections including MRSA, Pseudomonas, as a note toe back to her, Enterobacter Klebsiella and stenotrophomonas. She also follows with Dr. Cruz. She is maintained on Bactrim most recently. She had been on Zithromax Saturday. She was last seen in our office 05/24/2017 and was doing quite well. She presented here to the emergency room this morning with complaints of severe shortness of breath, fever and palpitations. Her chest x-ray reveals evidence of chronic obstructive pulmonary disease with a vague infiltrate or nodule in the right upper lobe with other multiple tiny nodules bilaterally. There is also a hiatal hernia with prominent lucency in the upper mediastinum which could be related to her previous gastric pull-through procedure. This had been stable since 2011. Initial white count 14.6. Sodium is low at 124 potassium 3.4, small troponin leak of 0.135. EKG reveals sinus tachycardia with nonspecific ST and T wave abnormalities. She is slightly tachycardic She is afebrile. Currently hemodynamically stable. She's been placed on BiPAP 10/5 at 40% FiO2 and is maintaining O2 saturations in the mid 90s. She states she is breathing better this afternoon. Her sister is at the bedside and is helpful with the history. She'll be admitted to the selective care unit for closer monitoring. Patient was reevaluated today on 06/25/2017, remains on mechanical ventilation, her vent settings were adjusted, remains on assist control of 18, tidal volume was increased to 450. FiO2 was also increased to 45%. ABG was reviewed and it is marginal. Hence the adjustments were made on her ventilator settings. Patient was awakened early today, and she was given a sedation holiday, however she was noted to be unresponsive, followed simple instructions, but she was extremely tachypneic and tachycardic at the time of sedation on hold. Hence I had to place her back on propofol drip. Venous access to the patient is poor, hence I recommended and I placed a right femoral triple-lumen catheter, and a right radial arterial line. Labs are all reviewed, ABG showed a pO2 of 63 pCO2 of 46 pH of 7.31. Basic metabolic profile was also reviewed, potassium is improved and sodium is improved. Renal profile seems to be normal. CBC showed a WBC count of 10.9 hemoglobin of 11.6. Chest x-ray was reviewed, and the patient seems to be developing some valvular disease in the right lung, there is diffuse alveolar his pain is disease in the left lung also. Small left pleural effusion is suspected. Medications were also reviewed, patient is presently on cefepime, Levaquin, and decision regarding further antibiotics, will be decided upon by Dr. Crzu. May or may not consider vancomycin to be added. Objective - Vital Signs Vital signs: Vital Signs Temp 101.7 F H 06/15/17 08:30 Pulse 107 H 06/15/17 12:12 Resp 22 06/15/17 10:00 BP 120/53 06/15/17 10:00 Pulse Ox 98 06/15/17 10:00 Intake & Output 06/14/17 06/15/17 06/15/17 18:59 06:59 18:59 Intake Total 2105.842 1803.209 880 Output Total 1395 630 350 Balance 120.914 9925.209 530 Weight 49.2 kg 53.9 kg Intake: IV 2050 1610 880 ACETAMINOPHEN IV (For NPO 100 ) 1,000 mg In Empty Bag 1 bag @ 400 mls/hr IVPB Q6HR PRN Rx#:[id number] Calcium Gluconate 1,000 100 mg In Sodium Chloride 0.9 % 100 ml @ 100 mls/hr IVPB ONCE ONE Rx#: [id number] Cefepime 2 gm In Sodium 50 Chloride 0.9% 50 ml @ 100 mls/hr IVPB ONCE STA Rx# :[id number] Cefepime 2 gm In Sodium 50 Chloride 0.9% 50 ml @ 100 mls/hr IVPB Q12HR [facility] Rx #:[id number] Levofloxacin 750Mg-D5w 150 100 Pmx 750 mg In Dextrose/ Water 1 150ml.bag @ 100 mls/hr IVPB Q24H [facility] Rx#: [id number] Mvi, Adult No.4 with Vit 150 360 180 K 10 ml Trace (Conc-1Ml/ Dose) 1 ml Sodium Chloride 4Meq/ml Vial 20 meq In Amino Acid 5%-D15w +Lytes*E* 1,000 ml @ 30 mls/hr IV .Q24H [facility] Rx#: [id number] Sodium Chloride 0.9% 1, 800 600 000 ml @ 100 mls/hr IV . Q10H [facility] Rx#:[id number] Sodium Chloride 0.9% 1, 1000 400 000 ml @ 100 mls/hr IV . Q10H [facility] Rx#:[id number] Sodium Chloride 0.9% 500 500 ml @ 999 mls/hr IV .Q31M [facility] Rx#:[id number] Intake, IV Titration 55.842 193.209 Amount Propofol 1,000 mg In 100 55.842 193.209 ml @ Titrate IV .Q0M [facility] Rx#:[id number] Output: Urine 1395 630 350 Other: Voiding Method Indwelling Catheter Indwelling Catheter Indwelling Catheter - Exam GENERAL EXAM: Frail, cachectic. On mechanical ventilation, sedated, in no distress. Endotracheal tube and orogastric tube are intact. HEAD: Normocephalic. EYES: Normal reaction of pupils, equal size. NOSE: Clear with pink turbinates. THROAT: No erythema or exudates. NECK: No masses, no JVD. CHEST: No chest wall deformity. Right subclavian Mediport in place LUNGS: Scattered rhonchi were noted bilaterally. CVS: S1 and S2 normal with no audible murmurs, regular rhythm. ABDOMEN: Soft, nontender. Bowel sounds are present. Extremities: There is no peripheral edema. No clubbing, no cyanosis. Peripheral pulses are intact. Neurologic: While off propofol, patient had no focal neurologic deficit. - Labs CBC & Chem 7: 06/15/17 04:02 06/15/17 04:02 Labs: Abnormal Lab Results - Last 24 Hours (Table) 06/14/17 06/14/17 06/15/17 Range/Units 12:29 18:10 00:00 WBC (3.8-10.6) k/uL RBC (3.80-5.40) m/uL Neutrophils # (1.3-7.7) k/uL Lymphocytes # (1.0-4.8) k/uL ABG pH (7.35-7.45) ABG pCO2 (35-45) mmHg ABG pO2 (83-108) mmHg ABG O2 Saturation (94-97) % Sodium (137-145) mmol/L Creatinine (0.52-1.04) mg/dL Glucose (74-99) mg/dL POC Glucose (mg/dL) 142 H 155 H 194 H (75-99) mg/dL Calcium (8.4-10.2) mg/dL Phosphorus (2.5-4.5) mg/dL TSH (0.465-4.680) mIU/L 06/15/17 06/15/17 06/15/17 Range/Units 04:02 04:02 06:11 WBC 10.9 H (3.8-10.6) k/uL RBC 3.62 L (3.80-5.40) m/uL Neutrophils # 10.3 H (1.3-7.7) k/uL Lymphocytes # 0.3 L (1.0-4.8) k/uL ABG pH (7.35-7.45) ABG pCO2 (35-45) mmHg ABG pO2 (83-108) mmHg ABG O2 Saturation (94-97) % Sodium 132 L (137-145) mmol/L Creatinine 0.40 L (0.52-1.04) mg/dL Glucose 164 H (74-99) mg/dL POC Glucose (mg/dL) 136 H (75-99) mg/dL Calcium 7.6 L (8.4-10.2) mg/dL Phosphorus 1.4 L (2.5-4.5) mg/dL TSH 0.038 L (0.465-4.680) mIU/L 06/15/17 06/15/17 Range/Units 08:25 11:49 WBC (3.8-10.6) k/uL RBC (3.80-5.40) m/uL Neutrophils # (1.3-7.7) k/uL Lymphocytes # (1.0-4.8) k/uL ABG pH 7.31 L (7.35-7.45) ABG pCO2 46 H (35-45) mmHg ABG pO2 63 L (83-108) mmHg ABG O2 Saturation 89.7 L (94-97) % Sodium (137-145) mmol/L Creatinine (0.52-1.04) mg/dL Glucose (74-99) mg/dL POC Glucose (mg/dL) 105 H (75-99) mg/dL Calcium (8.4-10.2) mg/dL Phosphorus (2.5-4.5) mg/dL TSH (0.465-4.680) mIU/L Microbiology - Last 24 Hours (Table) 06/14/17 11:15 Gram Stain - Preliminary Sputum Sputum Culture - Preliminary 06/14/17 09:30 Urine Culture - Preliminary Urine,Catheterized 06/13/17 10:53 Blood Culture - Preliminary Blood No Growth after 24 hours Assessment and Plan Plan: #1 Acute hypoxic respiratory failure secondary to an acute exacerbation of severe Gold stage III chronic obstructive pulmonary disease. And bilateral pneumonia is suspected. Patient is presently on mechanical ventilation. #2 Hyponatremia, corrected #3 Hypokalemia, corrected #4 Small troponin leak. #5 Malabsorption syndrome, receiving TPN in the outpatient setting, secondary to total gastrectomy/esophagectomy with pull-through. Will likely place the patient on enteral feeding while in the ICU on mechanical ventilation, and the nasogastric tube was placed yesterday successfully. #6 Multiple previous pneumonias secondary to Pseudomonas, MRSA, Klebsiella and stenotrophomonas. Currently maintained on Bactrim in the outpatient setting. Presently on antibiotics as per Dr. Cruz on the case. Including Levaquin and cefepime. #7 Remote history of chronic tobacco use. And history of severe COPD. Patient is on bronchodilators and on steroids. #8 Hypothyroidism. #9 Osteoarthritis. #10 Poor overall functional performance based on the above-mentioned multiple comorbidities. Recommendation: Continue present ventilatory support, GI and DVT prophylaxis, nutritional support, antibiotics, overall prognostic picture is poor, critical care time is 40 minutes excluding time spent on procedures. Time with Patient: Greater than 30
[2017-06-15] MEDS: POTASSIUM PHOSPHATE 10 MMOL in SODIUM CHLORIDE 0.9% 100 ML IV SCH ×2 (13:10→15:10)
--- NOTE | 2017-06-15 15:54 | P.PN ---
Subjective This is a [id number] pleasant female patient of Dr. Javier Ledesma and Dr. Rader with known history of COPD, CVA, fibromyalgia, GERD, GI bleed, or she tried this, pneumonia and a previous line infection treated by Dr. Cruz last 09/14/2015, she was septic at that time required IV antibiotics with sepsis from her right chest wall cellulitis . Her last admission was September 2016 for left-sided pneumonia with sepsis, possible gram-negative pneumonia possible septic shock, no sputum cultures isolated during that last admission. Patient is known to have history of malabsorption she had partial gastrectomy followed by total gastrectomy with esophagectomy secondary to peptic ulcer disease and has been on TPN via port in the right side of her chest wall for the last few years had multiple complication previously but was hospitalized last time over a year ago.. She also has history of MRSA last one was 3 years ago arising from the neck abscess Patient presented to the emergency department at [facility] with severe shortness of breath, cough or 4 day duration, patient was started on Bactrim by Dr. Cruz, no prednisone from pulmonary service or PCP, patient did not get any better was subsequently admitted to the emergency room secondary to severe COPD exacerbation and right-sided pneumonia based on chest x-ray. Patient had fever and chills, fatigue and back pain near the right scapula In the emergency room COPD changes were noted and chest x-ray, with micronodular pattern, hiatal hernia with prominent lucency in the upper mediastinum stable with back 2012 , a vague infiltrate right upper lobe, upon arrival to emergency room, patient was wheezing with severe hypoxemic dyspnea tachypneic., patient required BiPAP Treatments,, patient is a full code and agrees to intubation if necessary 06/14: Patient required mechanical ventilation early this morning at around 7:30, and intubated by Dr. Miranda, patient was tachypneic and fatiguing with the BiPAP treatment, she also was hypoxemic despite BiPAP, she was severely acidotic based on ABG the pH of 7.04 pCO2 of 94, OG tube to be placed later today patient is sedated on a vent 06/15: Patient remains in ICU, mechanical ventilated and not requiring any pressors patient spiking some temperatures, blood cultures are pending, vancomycin added to current regimen of Levaquin and cefepime with prior history of MRSA Dr. Cruz following. TPN infusing as previous from home Objective - Vital Signs Vital signs: Vital Signs Temp 101.7 F H 06/15/17 08:30 Pulse 107 H 06/15/17 12:12 Resp 22 06/15/17 10:00 BP 120/53 06/15/17 10:00 Pulse Ox 98 06/15/17 10:00 Intake & Output 06/14/17 06/15/17 06/15/17 18:59 06:59 18:59 Intake Total 2105.842 1803.209 880 Output Total 1395 630 350 Balance 977.611 8975.209 530 Weight 49.2 kg 53.9 kg Intake: IV 2050 1610 880 ACETAMINOPHEN IV (For NPO 100 ) 1,000 mg In Empty Bag 1 bag @ 400 mls/hr IVPB Q6HR PRN Rx#:[id number] Calcium Gluconate 1,000 100 mg In Sodium Chloride 0.9 % 100 ml @ 100 mls/hr IVPB ONCE ONE Rx#: [id number] Cefepime 2 gm In Sodium 50 Chloride 0.9% 50 ml @ 100 mls/hr IVPB ONCE [facility] Rx# :[id number] Cefepime 2 gm In Sodium 50 Chloride 0.9% 50 ml @ 100 mls/hr IVPB Q12HR [facility] Rx #:[id number] Levofloxacin 750Mg-D5w 150 100 Pmx 750 mg In Dextrose/ Water 1 150ml.bag @ 100 mls/hr IVPB Q24H [facility] Rx#: [id number] Mvi, Adult No.4 with Vit 150 360 180 K 10 ml Trace (Conc-1Ml/ Dose) 1 ml Sodium Chloride 4Meq/ml Vial 20 meq In Amino Acid 5%-D15w +Lytes*E* 1,000 ml @ 30 mls/hr IV .Q24H [facility] Rx#: [id number] Sodium Chloride 0.9% 1, 800 600 000 ml @ 100 mls/hr IV . Q10H [facility] Rx#:[id number] Sodium Chloride 0.9% 1, 1000 400 000 ml @ 100 mls/hr IV . Q10H [facility] Rx#:[id number] Sodium Chloride 0.9% 500 500 ml @ 999 mls/hr IV .Q31M [facility] Rx#:[id number] Intake, IV Titration 55.842 193.209 Amount Propofol 1,000 mg In 100 55.842 193.209 ml @ Titrate IV .Q0M [facility] Rx#:[id number] Output: Urine 1395 630 350 Other: Voiding Method Indwelling Catheter Indwelling Catheter Indwelling Catheter - Constitutional General appearance: Present: mild distress - EENT Eyes: Present: anicteric sclerae, dentition normal, normal appearance ENT: Present: NA/AT, normal oropharynx - Neck Neck: Present: normal ROM. Absent: lymphadenopathy, other, rigidity, stridor, thyromegaly - Respiratory Respiratory: bilateral: rales, wheezing, negative: CTA, diminished, dullness, rhonchi - Cardiovascular Rhythm: regular Heart sounds: normal: S1, S2 - Gastrointestinal General gastrointestinal: Present: normal bowel sounds, soft - Labs CBC & Chem 7: 06/15/17 04:02 06/15/17 04:02 Labs: Abnormal Lab Results - Last 24 Hours (Table) 06/14/17 06/14/17 06/15/17 Range/Units 12:29 18:10 00:00 WBC (3.8-10.6) k/uL RBC (3.80-5.40) m/uL Neutrophils # (1.3-7.7) k/uL Lymphocytes # (1.0-4.8) k/uL ABG pH (7.35-7.45) ABG pCO2 (35-45) mmHg ABG pO2 (83-108) mmHg ABG O2 Saturation (94-97) % Sodium (137-145) mmol/L Creatinine (0.52-1.04) mg/dL Glucose (74-99) mg/dL POC Glucose (mg/dL) 142 H 155 H 194 H (75-99) mg/dL Calcium (8.4-10.2) mg/dL Phosphorus (2.5-4.5) mg/dL TSH (0.465-4.680) mIU/L 06/15/17 06/15/17 06/15/17 Range/Units 04:02 04:02 06:11 WBC 10.9 H (3.8-10.6) k/uL RBC 3.62 L (3.80-5.40) m/uL Neutrophils # 10.3 H (1.3-7.7) k/uL Lymphocytes # 0.3 L (1.0-4.8) k/uL ABG pH (7.35-7.45) ABG pCO2 (35-45) mmHg ABG pO2 (83-108) mmHg ABG O2 Saturation (94-97) % Sodium 132 L (137-145) mmol/L Creatinine 0.40 L (0.52-1.04) mg/dL Glucose 164 H (74-99) mg/dL POC Glucose (mg/dL) 136 H (75-99) mg/dL Calcium 7.6 L (8.4-10.2) mg/dL Phosphorus 1.4 L (2.5-4.5) mg/dL TSH 0.038 L (0.465-4.680) mIU/L 06/15/17 06/15/17 Range/Units 08:25 11:49 WBC (3.8-10.6) k/uL RBC (3.80-5.40) m/uL Neutrophils # (1.3-7.7) k/uL Lymphocytes # (1.0-4.8) k/uL ABG pH 7.31 L (7.35-7.45) ABG pCO2 46 H (35-45) mmHg ABG pO2 63 L (83-108) mmHg ABG O2 Saturation 89.7 L (94-97) % Sodium (137-145) mmol/L Creatinine (0.52-1.04) mg/dL Glucose (74-99) mg/dL POC Glucose (mg/dL) 105 H (75-99) mg/dL Calcium (8.4-10.2) mg/dL Phosphorus (2.5-4.5) mg/dL TSH (0.465-4.680) mIU/L Microbiology - Last 24 Hours (Table) 06/14/17 11:15 Gram Stain - Preliminary Sputum Sputum Culture - Preliminary 06/14/17 09:30 Urine Culture - Preliminary Urine,Catheterized 06/13/17 10:53 Blood Culture - Preliminary Blood No Growth after 24 hours Assessment and Plan Plan: 1. Severe hypoxemic acute on chronic respiratory failure with chronic hypoxemia secondary to severe COPD exacerbation, patient is currently on BiPAP treatments with nebulized albuterol Atrovent, and IV Solu-Medrol, oxygen supplementation, baseline home O2 is at 3 L nasal cannula, patient will be seen consultation by Dr. Miranda from pulmonary medicine. Patient is very ill at this point she would place and selective might need ICU prior to ER transfer if needed. Continue Singulair and Xopenex and Pulmicort 1 mg twice a day patient was on 500 mg Advair at home, we transition to home dose Advair once stabilized.patient currently is intubated 2. Acute respiratory failure requiring mechanical ventilation on 06/14/2017 critical care pulmonary physician Dr. Miranda managing vent, OG tube to be placed with transitioning of her medications, oral feedings OG tube 3 right sided pneumonia: Patient will be on IV antibiotics for now consult pulmonary critical care continue current management repeat chest x-ray in 1-2 days.. Patient has multiple drug ALLERGIES, and would be started on cefepime, and Levaquin with known history of pseudomonas infection in the past. Vancomycin added with prior history of MRSA Sputum cultures will be obtained. Consult with Dr. Cruz who knows her well for streamlining of antibiotics. Patient failed oral Bactrim prior to admission . mycoplasma antibody negative, sputum cultures pending 4 chronic hypoxemic respiratory failure on maintenance 3 L O2 at home 5 Chemistry abnormalities with hyponatremia, most likely secondary to severe pneumonia hyperkalemia, elevated mild AST and alkaline phosphatase, hypokalemia , chemistries will be followed closely 6 hypothyroidism continue levothyroxine at 100 g daily. 7 history of anxiety and panic attack: We'll provide Ativan1 mg 2times a day when necessary 8 history of neuropathy and fibromyalgia has been doing well on gabapentin along with Flexeril hold Flexeril we would restart once hypersomnia has stabilized. 9 chronic depression and depressive disorders continue patient on Cymbalta 90 mg daily.. 10 arrhythmia: Patient has been on metoprolol 25 g twice a day. 11 osteoporosis: Patient has been on Miacalcin along with calcium and vitamin D. 12 Severe malabsorption and malnutrition: Has been on TPN via port in the past and has been on maintenance infusions at home, TPN currently is infusing through [facility] right side GI prophylaxis: Patient will be on Pepcid 20 mg daily. DVT prophylaxis: Patient will have knee-high BARBARA hose and Venodyne boots. CODE STATUS: Full code. Condition guarded X Expected length of stay 3 nights
[2017-06-15] MEDS ORDERED: VANCOMYCIN IV PER PHARMACY 1 EACH MISC MISCELLANE PRN (15:55)
[2017-06-15] MEDS: IPRATROPIUM 0.5 MG/2.5 ML NEBU INHALATION SCH ×2 (15:56→19:57)
[2017-06-15] MEDS ORDERED: VANCOMYCIN 1,000 MG in SODIUM CHLORIDE 0.9% 250 ML IVPB STA (15:58)
[2017-06-15 18:05] LABS: Glucose,Whole Blood 171 mg/dL (75-99)
[2017-06-15] MEDS: guaiFENesin SYRUP 100MG/5ML 200 MG/10 ML CUP PO SCH ×2 (18:06→21:24)
[2017-06-15] MEDS: LORazepam 2 MG/ML INJ IV PRN (19:51)
--- NOTE | 2017-06-15 19:55 | P.PN ---
Subjective Principal diagnosis: Respiratory failure 61-year-old female presents to the emergency center complaining of significant shortness of breath. She is well-known to the pulmonology group as well as infectious disease regarding her many pulmonary infections and bouts of sepsis in the past. She has advanced pulmonary disease with Gold stage III lung disease. She often utilizes oxygen and has been on steroids intermittently. At the time of presentation a is a center she was profoundly short of breath. She required initiation of BiPAP to maintain her respiratory status. Her respiratory status deteriorated and she required intubation with mechanical ventilation earlier today and she was moved to intensive care unit for ongoing care. She is not having Laura and hypotension but has ongoing respiratory failure. Nursing staff relates the time of intubation a gross amount of grossly purulent secretions were obtained from the endotracheal tube. Since she has had some significant improvement of her pulmonary status and her oxygenation. She has a history of multiple infections including Pseudomonas aeruginosa. She has had port infection last one is for more a year ago. At this time as noted she is intubated sedated and mechanically ventilated. She is comfortable. The nursing staff relates to no other acute concerns and has been improvement of her ventilation. The patient's and daughter and family are present. Extensive discussion ensues about her current intubation status. She does have advanced COPD. The concern would be that if she starts to improve and attempts for weaning occur that she may fail weaning. If she fails weaning she within need to have a tracheostomy and plans for long-term vent weaning. Objective - Vital Signs Vital signs: Vital Signs Temp 99.4 F 06/15/17 19:00 Pulse 115 H 06/15/17 19:00 Resp 23 06/15/17 19:00 BP 113/50 06/15/17 13:00 Pulse Ox 93 L 06/15/17 19:00 Intake & Output 06/15/17 06/15/17 06/16/17 06:59 18:59 06:59 Intake Total 4908.470 6731 130 Output Total 630 695 50 Balance 7425.982 4412 80 Weight 53.9 kg Intake: IV 1610 1610 130 Cefepime 2 gm In Sodium 50 50 Chloride 0.9% 50 ml @ 100 mls/hr IVPB Q12HR [facility] Rx #:[id number] Levofloxacin 750Mg-D5w 100 Pmx 750 mg In Dextrose/ Water 1 150ml.bag @ 100 mls/hr IVPB Q24H [facility] Rx#: [id number] Mvi, Adult No.4 with Vit 360 360 30 K 10 ml Trace (Conc-1Ml/ Dose) 1 ml Sodium Chloride 4Meq/ml Vial 20 meq In Amino Acid 5%-D15w +Lytes*E* 1,000 ml @ 30 mls/hr IV .Q24H [facility] Rx#: [id number] Sodium Chloride 0.9% 1, 800 1100 100 000 ml @ 100 mls/hr IV . Q10H [facility] Rx#:[id number] Sodium Chloride 0.9% 1, 400 000 ml @ 100 mls/hr IV . Q10H [facility] Rx#:[id number] Intake, IV Titration 193.209 100 Amount Propofol 1,000 mg In 100 193.209 100 ml @ Titrate IV .Q0M [facility] Rx#:[id number] Tube Feeding 10 Output: Urine 630 695 50 Other: Voiding Method Indwelling Catheter Indwelling Catheter ABP, PAP, CO, CI - Last Documented Arterial Blood Pressure 135/69 - Exam 61-year-old female who was admitted very thin but not cachectic build. She is intubated sedated and mechanically ventilated. HEENT: Anicteric conjunctiva are pink and moist nasal mucosa grossly intact without significant lesions, there is no thrush. No lesions noted around the endotracheal tube Neck: The neck is supple without significant lymphadenopathy or thyromegaly. Lungs: There is symmetrical air entry. There are coarse crackles and wheezes scattered throughout the lung jeter.) Considerably better than prior. Minimal dullness is noted to the bilateral bases. Heart: Regular rate and rhythm with an audible S1-S2, no S3 no S4. There is no significant murmur click or rub, PMI was nondisplaced. Abdomen: Positive bowel sounds soft and nontender without palpable masses or organomegaly. There was no guarding or rebound. Extremities: The upper extremities have excellent pulses they are symmetric, no significant petechiae or telangiectasia. No splinter hemorrhages were noted. The lower extremities are free from significant edema. The peripheral pulses were 2+ and symmetric. Neuro: Sedated - Labs CBC & Chem 7: 06/15/17 04:02 06/15/17 18:25 Labs: Abnormal Lab Results - Last 24 Hours (Table) 09/06/2306/15/17 06/15/17 Range/Units 00:00 04:02 04:02 WBC 10.9 H (3.8-10.6) k/uL RBC 3.62 L (3.80-5.40) m/uL Neutrophils # 10.3 H (1.3-7.7) k/uL Lymphocytes # 0.3 L (1.0-4.8) k/uL ABG pH (7.35-7.45) ABG pCO2 (35-45) mmHg ABG pO2 (83-108) mmHg ABG O2 Saturation (94-97) % Sodium 132 L (137-145) mmol/L Creatinine 0.40 L (0.52-1.04) mg/dL Glucose 164 H (74-99) mg/dL POC Glucose (mg/dL) 194 H (75-99) mg/dL Calcium 7.6 L (8.4-10.2) mg/dL Phosphorus 1.4 L (2.5-4.5) mg/dL TSH 0.038 L (0.465-4.680) mIU/L 06/15/17 06/15/17 06/15/17 Range/Units 06:11 08:25 11:49 WBC (3.8-10.6) k/uL RBC (3.80-5.40) m/uL Neutrophils # (1.3-7.7) k/uL Lymphocytes # (1.0-4.8) k/uL ABG pH 7.31 L (7.35-7.45) ABG pCO2 46 H (35-45) mmHg ABG pO2 63 L (83-108) mmHg ABG O2 Saturation 89.7 L (94-97) % Sodium (137-145) mmol/L Creatinine (0.52-1.04) mg/dL Glucose (74-99) mg/dL POC Glucose (mg/dL) 136 H 105 H (75-99) mg/dL Calcium (8.4-10.2) mg/dL Phosphorus (2.5-4.5) mg/dL TSH (0.465-4.680) mIU/L 06/15/17 Range/Units 18:04 WBC (3.8-10.6) k/uL RBC (3.80-5.40) m/uL Neutrophils # (1.3-7.7) k/uL Lymphocytes # (1.0-4.8) k/uL ABG pH (7.35-7.45) ABG pCO2 (35-45) mmHg ABG pO2 (83-108) mmHg ABG O2 Saturation (94-97) % Sodium (137-145) mmol/L Creatinine (0.52-1.04) mg/dL Glucose (74-99) mg/dL POC Glucose (mg/dL) 171 H (75-99) mg/dL Calcium (8.4-10.2) mg/dL Phosphorus (2.5-4.5) mg/dL TSH (0.465-4.680) mIU/L Microbiology - Last 24 Hours (Table) 06/14/17 09:30 Urine Culture - Final Urine,Catheterized 06/13/17 10:53 Blood Culture - Preliminary Blood No Growth after 48 hours 06/14/17 11:15 Gram Stain - Preliminary Sputum Sputum Culture - Preliminary Laboratory Results WBC 10.9 k/uL (3.8-10.6) H 06/15/17 04:02 RBC 3.62 m/uL (3.80-5.40) L 06/15/17 04:02 Hgb 11.6 gm/dL (11.4-16.0) 06/15/17 04:02 Hct 35.7 % (34.0-46.0) 06/15/17 04:02 MCV 98.6 fL (80.0-100.0) 06/15/17 04:02 MCH 32.1 pg (25.0-35.0) 06/15/17 04:02 MCHC 32.5 g/dL (31.0-37.0) 06/15/17 04:02 RDW 13.6 % (11.5-15.5) 06/15/17 04:02 Plt Count 159 k/uL (150-450) 06/15/17 04:02 Neutrophils % 95 % 06/15/17 04:02 Lymphocytes % 3 % 06/15/17 04:02 Monocytes % 2 % 06/15/17 04:02 Eosinophils % 0 % 06/15/17 04:02 Basophils % 0 % 06/15/17 04:02 Neutrophils # 10.3 k/uL (1.3-7.7) H 06/15/17 04:02 Lymphocytes # 0.3 k/uL (1.0-4.8) L 06/15/17 04:02 Monocytes # 0.2 k/uL (0-1.0) 06/15/17 04:02 Eosinophils # 0.0 k/uL (0-0.7) 06/15/17 04:02 Basophils # 0.0 k/uL (0-0.2) 06/15/17 04:02 Hypochromasia Slight 06/15/17 04:02 PT 10.8 sec (9.0-12.0) 06/13/17 10:53 INR 1.1 (<1.2) 06/13/17 10:53 APTT 35.6 sec (22.0-30.0) H 06/13/17 10:53 Sample Site LRAD 06/15/17 08:25 ABG pH 7.31 (7.35-7.45) L 06/15/17 08:25 ABG pCO2 46 mmHg (35-45) H 06/15/17 08:25 ABG pO2 63 mmHg (83-108) L 06/15/17 08:25 ABG HCO3 23 mmol/L (21-25) 06/15/17 08:25 ABG Total CO2 24 mmol/L (19-24) 06/15/17 08:25 ABG O2 Saturation 89.7 % (94-97) L 06/15/17 08:25 ABG Base Excess -2.7 mmol/L 06/15/17 08:25 FiO2 35 % 06/15/17 08:25 Sodium 132 mmol/L (137-145) L 06/15/17 04:02 Potassium 3.9 mmol/L (3.5-5.1) 06/15/17 18:25 Chloride 104 mmol/L (98-107) 06/15/17 04:02 Carbon Dioxide 22 mmol/L (22-30) 06/15/17 04:02 Anion Gap 6 mmol/L 06/15/17 04:02 BUN 12 mg/dL (7-17) 06/15/17 04:02 Creatinine 0.40 mg/dL (0.52-1.04) L 06/15/17 04:02 Est GFR (MDRD) Af Amer >60 (>60 ml/min/1.73 sqM) 06/15/17 04:02 Est GFR (MDRD) Non-Af >60 (>60 ml/min/1.73 sqM) 06/15/17 04:02 Glucose 164 mg/dL (74-99) H 06/15/17 04:02 POC Glucose (mg/dL) 171 mg/dL (75-99) H 06/15/17 18:04 POC Glu Integration Technician ID Aleksandra Allan 06/15/17 18:[address] Glu mg/dL 126 mg/dL 06/15/17 04:02 Hemoglobin A1c 6.0 % (4.2-6.1) 06/15/17 04:02 Plasma Lactic Acid [place] 1.2 mmol/L (0.7-2.0) 06/15/17 06:14 Calcium 7.6 mg/dL (8.4-10.2) L 06/15/17 04:02 Ionized Calcium Farhad 4.6 mg/dL (4.5-5.3) 06/14/17 10:47 Phosphorus 1.4 mg/dL (2.5-4.5) L 06/15/17 04:02 Magnesium 1.9 mg/dL (1.6-2.3) 06/15/17 04:02 Total Bilirubin 0.4 mg/dL (0.2-1.3) 06/13/17 10:53 AST 51 U/L (14-36) H 06/13/17 10:53 ALT 39 U/L (9-52) 06/13/17 10:53 Alkaline Phosphatase 132 U/L (38-126) H 06/13/17 10:53 Total Creatine Kinase 69 U/L (30-135) 06/13/17 10:53 CK-MB (CK-2) 2.0 ng/mL (0.0-2.4) 06/13/17 10:53 CK-MB (CK-2) Rel Index 2.9 06/13/17 10:53 Troponin I 0.135 ng/mL (0.000-0.034) H* 06/13/17 10:53 Total Protein 5.8 g/dL (6.3-8.2) L 06/13/17 10:53 Albumin 2.6 g/dL (3.5-5.0) L 06/14/17 10:47 Triglycerides 114 mg/dL (<150) 06/14/17 10:47 TSH 0.038 mIU/L (0.465-4.680) L 06/15/17 04:02 Free T4 1.61 ng/dL (0.78-2.19) 06/15/17 04:02 Urine Color Yellow 06/14/17 09:30 Urine Appearance Cloudy (Clear) H 06/14/17 09:30 Urine pH 6.0 (5.0-8.0) 06/14/17 09:30 Ur Specific [place] 1.014 (1.001-1.035) 06/14/17 09:30 Urine Protein 2+ (Negative) H 06/14/17 09:30 Urine Glucose (UA) Negative (Negative) 06/14/17 09:30 Urine Ketones 1+ (Negative) H 06/14/17 09:30 Urine Blood Moderate (Negative) H 06/14/17 09:30 Urine Nitrite Negative (Negative) 06/14/17 09:30 Urine Bilirubin Negative (Negative) 06/14/17 09:30 Urine Urobilinogen <2.0 mg/dL (<2.0) 06/14/17 09:30 Ur Leukocyte Esterase Negative (Negative) 06/14/17 09:30 Urine RBC 7 /hpf (0-5) H 06/14/17 09:30 Urine WBC 4 /hpf (0-5) 06/14/17 09:30 Ur Squamous Epith Cells <1 /hpf (0-4) 06/14/17 09:30 Hyaline Casts 3 /lpf (0-2) H 06/14/17 09:30 Urine Mucus Rare /hpf (None) H 06/14/17 09:30 Vancomycin Trough <5.0 ug/mL 06/15/17 18:25 Mycoplasma pneumon IgM 0.07 INDEX (<=0.90) 06/13/17 10:53 Microbiology 06/14/17 09:30 Urine,Catheterized Urine Culture - Final 06/13/17 10:53 Blood Blood Culture - Preliminary No Growth after 48 hours 06/14/17 11:15 Sputum Gram Stain - Preliminary 06/14/17 11:15 Sputum Sputum Culture - Preliminary Assessment and Plan (1) COPD (chronic obstructive pulmonary disease) Status: Acute (2) Acute respiratory failure Narrative/Plan: 61 year old woman who presents to the emergency center with progressive shortness of breath. Upon presentation she was having difficulties with an exacerbation of her COPD. Despite treatments she required BiPAP therapy for respiratory support. She did not improve significantly and earlier today she developed respiratory failure requiring intubation with sedation and mechanical ventilation. At the time of intubation there was a copious amount of material that was found. This is been sent for culture. She treated with levofloxacin for the exacerbation of her COPD as well as significant supportive measures such as the intubation, and steroid therapy. She is not hypotensive. She has good urinary output. She is tolerating sedation well and is interacting. Consider further help direct her antibiotic therapy. 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 At this time no evidence of any sepsis from her TPN catheter but cultures are pending. As noted sputum is in process and receiving antibiotic therapy. A long discussion occurs with the family about her overall care. She does have advanced lung disease. If she fails weaning trials they will be considering the possibility of not reintubating. Over the next couple days her status will help him determine the best possible plan if she is not able to be weaned from the ventilator. They do not believe that she would want to have tracheostomy and long-term vent facility placement. Cultures are process most recent cultures have had pseudomonas and Enterobacter. We'll not add vancomycin at this time. Status: Acute
[2017-06-15] MEDS ORDERED: POTASSIUM CHLORIDE ORAL LIQUID 40 MEQ/30 ML CUP NG-TUBE SCH (20:00)
[2017-06-15] MEDS: MVI, ADULT NO.4 WITH VIT K 10 ML, TRACE (CONC-1ML/DOSE) 1 ML, SODIUM CHLORIDE 4MEQ/ML V... IV SCH ×4 (20:33)
[2017-06-15] MEDS: DULoxetine HCL 30 MG CAPSULE.DR PO SCH (21:19)
[2017-06-15 23:41] LABS: Glucose,Whole Blood 191 mg/dL (75-99)
[2017-06-15] MEDS: LEVALBUTEROL NEB 1.25 MG/3 ML AMP INHALATION PRN (23:50)
[2017-06-16] LABS: CH 31.7; CHCM 32.4; HCT 34.3 % (34.0-46.0); HDW 2.97; HGB 11.2 gm/dL (11.4-16.0); MCH 32.1 pg (25.0-35.0); MCHC 32.6 g/dL (31.0-37.0); MCV 98.6 fL (80.0-100.0); Mean Platelet Volume 7.3; RBC 3.48 m/uL (3.80-5.40); RDW 14.4 % (11.5-15.5); WBC 9.5 k/uL (3.8-10.6)
[2017-06-16] MEDS ORDERED: VANCOMYCIN 750 MG in SODIUM CHLORIDE 0.9% 250 ML IVPB SCH ×2
[2017-06-16 00:11] LABS: Anion Gap 2 mmol/L; Blood Urea Nitrogen 11 mg/dL (7-17); Calcium 7.5 mg/dL (8.4-10.2); Carbon Dioxide 25 mmol/L (22-30); Chloride 106 mmol/L (98-107); Glucose 204 mg/dL (74-99); Magnesium 2.4 mg/dL (1.6-2.3); Non-African American GFR(MDRD) >60 (>60 ml/min/1.73 sqM); Phosphorus 1.7 mg/dL (2.5-4.5); Potassium 4.3 mmol/L (3.5-5.1); Sodium 133 mmol/L (137-145)
[2017-06-16 00:22] LABS: Partial Thromboplastin Time 35.6 sec (22.0-30.0); Prothrombin Time 10.2 sec (9.0-12.0)
[2017-06-16] MEDS: LORazepam 2 MG/ML INJ IV PRN ×2 (00:55→19:43)
[2017-06-16] MEDS: HYDROmorphone 1 MG/ML 1 ML SYRINGE IVP PRN ×5 (03:20→22:50)
[2017-06-16] MEDS: PROPOFOL 1,000 MG/100 ML VIAL IV SCH ×3 (04:06→18:33)
[2017-06-16] MEDS: INSULIN LISPRO (humaLOG) 300 UNIT/3 ML VIAL SQ SCH ×3 (05:49→18:28)
[2017-06-16 05:50] LABS: Glucose,Whole Blood 181 mg/dL (75-99)
[2017-06-16 06:03] LABS: Basophils % (A) 0 %; CH 31.6; Eosinophils % (A) 0 %; HCT 35.1 % (34.0-46.0); HDW 2.95; HGB 11.2 gm/dL (11.4-16.0); Luc # (Auto) 0.05; Luc % (Auto) 1; Lymphocytes # (A) 0.2 k/uL (1.0-4.8); Lymphocytes % (A) 2 %; MCH 31.7 pg (25.0-35.0); MCHC 31.9 g/dL (31.0-37.0); MCV 99.5 fL (80.0-100.0); Mean Platelet Volume 7.3; Monocytes # (A) 0.1 k/uL (0-1.0); Monocytes % (A) 2 %; Neutrophils # (A) 7.3 k/uL (1.3-7.7); Neutrophils % (A) 96 %; RBC 3.52 m/uL (3.80-5.40); RDW 14.6 % (11.5-15.5); WBC 7.6 k/uL (3.8-10.6); WBC (Perox) 8.26
[2017-06-16 06:15] LABS: Anion Gap 1 mmol/L; Blood Urea Nitrogen 12 mg/dL (7-17); Calcium 7.7 mg/dL (8.4-10.2); Carbon Dioxide 25 mmol/L (22-30); Chloride 108 mmol/L (98-107); Glucose 196 mg/dL (74-99); Magnesium 2.5 mg/dL (1.6-2.3); Non-African American GFR(MDRD) >60 (>60 ml/min/1.73 sqM); Phosphorus 1.7 mg/dL (2.5-4.5); Potassium 4.2 mmol/L (3.5-5.1); Sodium 134 mmol/L (137-145)
[2017-06-16] MEDS: methylPREDNISolone SOD SUCCI 125 MG/2 ML VIAL IV SCH ×3 (07:26→18:28)
--- NOTE | 2017-06-16 07:36 | XR ---
EXAMINATION TYPE: XR chest 1V portable DATE OF EXAM: 06/16/2017 HISTORY: Tube placement. REFERENCE: Previous study dated 06/15/2017. FINDINGS: The patient is ET tube and NG tube remain in place, unchanged in appearance. There is patchy, bilateral airspace disease, worse on the left than the right. This is become more co nfluent at the left lung base. Heart size is upper limits of normal. There is a left-sided effusion. IMPRESSION: WORSENING PNEUMONIA AT THE LEFT LUNG BASE.
[2017-06-16] MEDS: IPRATROPIUM 0.5 MG/2.5 ML NEBU INHALATION SCH ×4 (07:54→19:03)
[2017-06-16] MEDS: BUDESONIDE 1 MG/2 ML NEBU INHALATION SCH ×2 (07:55→19:03)
[2017-06-16] MEDS: LEVALBUTEROL NEB 1.25 MG/3 ML AMP INHALATION SCH ×4 (07:55→19:03)
[2017-06-16] MEDS: LEVOTHYROXINE IVP 100 MCG/5 ML VIAL IV SCH (08:29)
[2017-06-16] MEDS: DULoxetine HCL 60 MG CAPSULE.DR PO SCH (08:30)
[2017-06-16] MEDS: CHLORHEXIDINE GLUCONATE 15 ML CUP MUCOUS MEM SCH ×2 (08:30→20:06)
[2017-06-16] MEDS: METOPROLOL TARTRATE 25 MG TAB PO SCH ×2 (08:30→20:07)
[2017-06-16] MEDS: ASPIRIN 81 MG PO SCH (08:30)
[2017-06-16] MEDS: PANTOPRAZOLE 40 MG/10 ML VIAL IV SCH (08:48)
[2017-06-16 08:54] LABS: ABG Base Excess -3.7 mmol/L; ABG HCO3 23 mmol/L (21-25); ABG Oxygen Saturation 94.8 % (94-97); ABG PCO2 55 mmHg (35-45); ABG PH 7.24 (7.35-7.45); ABG PO2 89 mmHg (83-108); ABG TCO2 24 mmol/L (19-24)
[2017-06-16] MEDS: ENOXAPARIN 40 MG/0.4 ML SYRINGE SQ SCH (08:57)
[2017-06-16 09:18] LABS: ABG Base Excess -4.2 mmol/L; ABG HCO3 22 mmol/L (21-25); ABG Oxygen Saturation 91.4 % (94-97); ABG PCO2 51 mmHg (35-45); ABG PH 7.25 (7.35-7.45); ABG PO2 72 mmHg (83-108); ABG TCO2 23 mmol/L (19-24)
--- NOTE | 2017-06-16 09:30 | OP ---
OPERATIVE REPORT OPERATIVE REPORT: Placement of a right femoral triple-lumen catheter. PREOPERATIVE DIAGNOSES: 1. Acute respiratory failure. 2. Pneumonia. POSTOPERATIVE DIAGNOSES: 1. Acute respiratory failure. 2. Pneumonia. ANESTHESIA USED: 2 mL of 1% lidocaine. PROCEDURE: Patient was placed in a supine position, the area of the right groin was prepared in a sterile fashion and drapes were applied. The area was locally anesthetized with lidocaine. Then the right femoral vein was cannulated easily, a guidewire was placed, and a Cook catheter was inserted over the guidewire, the guidewire was removed. Good blood flow was noted in the three different ports of the triple-lumen catheter. The line was secured using 3.0 silk sutures. Procedure was well tolerated. No evidence of any complications. MMODL / IJN: [id number] /
--- NOTE | 2017-06-16 09:37 | OP ---
OPERATIVE REPORT OPERATIVE REPORT: Placement of the right radial arterial line. PREOPERATIVE DIAGNOSIS: Acute respiratory failure/pneumonia. POSTOPERATIVE DIAGNOSIS: Acute respiratory failure/pneumonia. ANESTHESIA USED: None deployed. PROCEDURE: Patient was placed in the supine position. The right wrist was prepped in a sterile fashion and drapes were applied. The right radial artery was palpated easily, cannulated easily, and a guidewire was placed. A radial Cook catheter was placed over the guidewire, the guidewire was removed. Good blood flow, good waveform noted, line was secured using 3.0 silk sutures. No complications. MMODL / IJN: [id number] /
[2017-06-16] MEDS: CEFEPIME 2 GM in SODIUM CHLORIDE 0.9% 50 ML IVPB SCH ×2 (09:45→20:08)
[2017-06-16] MEDS: SODIUM CHLORIDE 0.9% 1,000 ML IV SCH ×3 (09:45→18:42)
[2017-06-16] MEDS: LEVOFLOXACIN 750MG-D5W PMX 750 MG in DEXTROSE/WATER 1 150ML.BAG IVPB SCH (11:12)
[2017-06-16] MEDS: MAGNESIUM OXIDE 400 MG TAB PO SCH (11:12)
[2017-06-16] MEDS: FOLIC ACID 1 MG TAB PO SCH (11:13)
[2017-06-16] MEDS: CHOLECALCIFEROL 1,000 UNIT TAB PO SCH (11:13)
[2017-06-16 11:54] LABS: Glucose,Whole Blood 126 mg/dL (75-99)
[2017-06-16] MEDS: MVI, ADULT NO.4 WITH VIT K 10 ML, TRACE (CONC-1ML/DOSE) 1 ML, SODIUM CHLORIDE 4MEQ/ML V... IV SCH ×4 (12:00)
--- NOTE | 2017-06-16 12:29 | P.PN ---
Subjective Principal diagnosis: Acute hypoxic respiratory failure secondary to pneumonia and COPD This is a very pleasant 61-year-old female patient who follows with Dr. Ledesma as her primary care physician. She has a history of fibromyalgia, degenerative disc disease, hypothyroidism, osteoporosis. She also has a significant history of peptic ulcer disease with previous partial gastrectomy followed by subsequent total gastrectomy and esophagectomy with anastomosis. This has led to malabsorption syndrome and she is nourished with TPN. She follows with Dr. Hills in our office for severe Gold stage III chronic obstructive pulmonary disease. She has also had multiple pulmonary infections including MRSA, Pseudomonas, as a note toe back to her, Enterobacter Klebsiella and stenotrophomonas. She also follows with Dr. Cruz. She is maintained on Bactrim most recently. She had been on Zithromax Saturday. She was last seen in our office 05/24/2017 and was doing quite well. She presented here to the emergency room this morning with complaints of severe shortness of breath, fever and palpitations. Her chest x-ray reveals evidence of chronic obstructive pulmonary disease with a vague infiltrate or nodule in the right upper lobe with other multiple tiny nodules bilaterally. There is also a hiatal hernia with prominent lucency in the upper mediastinum which could be related to her previous gastric pull-through procedure. This had been stable since 2011. Initial white count 14.6. Sodium is low at 124 potassium 3.4, small troponin leak of 0.135. EKG reveals sinus tachycardia with nonspecific ST and T wave abnormalities. She is slightly tachycardic She is afebrile. Currently hemodynamically stable. She's been placed on BiPAP 10/5 at 40% FiO2 and is maintaining O2 saturations in the mid 90s. She states she is breathing better this afternoon. Her sister is at the bedside and is helpful with the history. She'll be admitted to the selective care unit for closer monitoring. Patient was reevaluated today on 06/15/2017, remains on mechanical ventilation, her vent settings were adjusted, remains on assist control of 18, tidal volume was increased to 450. FiO2 was also increased to 45%. ABG was reviewed and it is marginal. Hence the adjustments were made on her ventilator settings. Patient was awakened early today, and she was given a sedation holiday, however she was noted to be unresponsive, followed simple instructions, but she was extremely tachypneic and tachycardic at the time of sedation on hold. Hence I had to place her back on propofol drip. Venous access to the patient is poor, hence I recommended and I placed a right femoral triple-lumen catheter, and a right radial arterial line. Labs are all reviewed, ABG showed a pO2 of 63 pCO2 of 46 pH of 7.31. Basic metabolic profile was also reviewed, potassium is improved and sodium is improved. Renal profile seems to be normal. CBC showed a WBC count of 10.9 hemoglobin of 11.6. Chest x-ray was reviewed, and the patient seems to be developing some valvular disease in the right lung, there is diffuse alveolar his pain is disease in the left lung also. Small left pleural effusion is suspected. Medications were also reviewed, patient is presently on cefepime, Levaquin, and decision regarding further antibiotics, will be decided upon by Dr. Cruz. May or may not consider vancomycin to be added. Patient was reevaluated today on 06/16/2017, remains on mechanical ventilations, tidal volume is 450, assist control rate of 24, FiO2 is 45% and PEEP of 5. ABG earlier showed a pO2 of 89 pCO2 of 55 pH of 7.24, hence the vent setting changes were made to increase the minute ventilation, and improve slightly her hypercapnia. And hopefully improve her respiratory acidosis. Her peak airway pressure is elevated, however her plateau pressures are in the range of 25 up to 28. Patient was noted to be quite agitated when sedation was placed on hold today. Hence I had to place her back on propofol drip. Her chest x-ray seems to be worsening with worsening infiltrate specially on the left side. Involving the left upper lobe and left lower lobe. CBC showed the cigar of 7.6 hemoglobin is 11.2. Basic metabolic profile is relatively normal BUN is 12 creatinine 0.50. Patient continues to have good urine output. Nutrition wheeler she is on TPN and she is receiving enteral feeding via nasogastric tube. All her medications were reviewed, patient is on bronchodilators, she is also on cefepime, and on Levaquin. She is also on GI prophylaxis and DVT prophylaxis in the form of Lovenox. Patient is also on propofol, not requiring any pressors since she is hemodynamically stable. Objective - Vital Signs Vital signs: Vital Signs Temp 99.5 F 06/16/17 12:00 Pulse 105 H 06/16/17 12:00 Resp 23 06/16/17 12:00 BP 106/54 06/16/17 12:00 Pulse Ox 93 L 06/16/17 12:00 Intake & Output 06/15/17 06/16/17 06/16/17 18:59 06:59 18:59 Intake Total 1720 3066.876 504.345 Output Total 695 585 330 Balance 1025 2481.876 174.345 Weight 56.2 kg Intake: IV 1610 1793 373 ACETAMINOPHEN IV (For NPO 100 ) 1,000 mg In Empty Bag 1 bag @ 400 mls/hr IVPB Q6HR PRN Rx#:[id number] Cefepime 2 gm In Sodium 50 100 Chloride 0.9% 50 ml @ 100 mls/hr IVPB Q12HR [facility] Rx #:[id number] Levofloxacin 750Mg-D5w 100 Pmx 750 mg In Dextrose/ Water 1 150ml.bag @ 100 mls/hr IVPB Q24H [facility] Rx#: [id number] Mvi, Adult No.4 with Vit 360 30 K 10 ml Trace (Conc-1Ml/ Dose) 1 ml Sodium Chloride 4Meq/ml Vial 20 meq In Amino Acid 5%-D15w +Lytes*E* 1,000 ml @ 30 mls/hr IV .Q24H [facility] Rx#: [id number] Pressure Bag 33 3 Sodium Chloride 0.9% 1, 1100 1200 250 000 ml @ 100 mls/hr IV . Q10H [facility] Rx#:[id number] TPN 330 120 Intake, IV Titration 100 1093.876 81.345 Amount Mvi, Adult No.4 with Vit 914 K 10 ml Trace (Conc-1Ml/ Dose) 1 ml Sodium Chloride 4Meq/ml Vial 20 meq In Amino Acid 5%-D15w +Lytes*E* 1,000 ml @ 30 mls/hr IV .Q24H [facility] Rx#: [id number] Norepinephrin 16 mg-0.9% 10.47 Ns Pmx 16 mg In 250 ml @ Titrate IV .Q0M [facility] Rx#: [id number] Propofol 1,000 mg In 100 100 179.876 70.875 ml @ Titrate IV .Q0M [facility] Rx#:[id number] Tube Feeding 10 90 50 Other 90 Output: Urine 695 585 330 Other: Voiding Method Indwelling Catheter Indwelling Catheter Indwelling Catheter ABP, PAP, CO, CI - Last Documented Arterial Blood Pressure 103/52 - Exam GENERAL EXAM: Frail, cachectic. On mechanical ventilation, sedated, in no distress. Endotracheal tube and orogastric tube are intact. HEAD: Normocephalic. EYES: Normal reaction of pupils, equal size. NOSE: Clear with pink turbinates. THROAT: No erythema or exudates. NECK: No masses, no JVD. CHEST: No chest wall deformity. Right subclavian Mediport in place LUNGS: Scattered rhonchi were noted bilaterally. CVS: S1 and S2 normal with no audible murmurs, regular rhythm. ABDOMEN: Soft, nontender. Bowel sounds are present. Extremities: There is no peripheral edema. No clubbing, no cyanosis. Peripheral pulses are intact. Right femoral triple-lumen catheter was noted. Seems to be intact. Neurologic: While off propofol, patient was noted to be quite agitated, restless , tachypneic, and tachycardic. Could not fully assess mental status at that point. A shunt had to be placed back on propofol. - Labs CBC & Chem 7: 06/16/17 05:45 06/16/17 05:45 Labs: Abnormal Lab Results - Last 24 Hours (Table) 06/15/17 06/15/17 06/15/17 Range/Units 18:04 23:37 23:40 RBC 3.48 L (3.80-5.40) m/uL Hgb 11.2 L (11.4-16.0) gm/dL Plt Count 146 L (150-450) k/uL Lymphocytes # (1.0-4.8) k/uL APTT (22.0-30.0) sec ABG pH (7.35-7.45) ABG pCO2 (35-45) mmHg ABG pO2 (83-108) mmHg ABG O2 Saturation (94-97) % Sodium (137-145) mmol/L Chloride (98-107) mmol/L Creatinine (0.52-1.04) mg/dL Glucose (74-99) mg/dL POC Glucose (mg/dL) 171 H 191 H (75-99) mg/dL Calcium (8.4-10.2) mg/dL Phosphorus (2.5-4.5) mg/dL Magnesium (1.6-2.3) mg/dL 06/15/17 06/15/17 06/16/17 Range/Units 23:40 23:40 05:45 RBC 3.52 L (3.80-5.40) m/uL Hgb 11.2 L (11.4-16.0) gm/dL Plt Count 138 L (150-450) k/uL Lymphocytes # 0.2 L (1.0-4.8) k/uL APTT 35.6 H (22.0-30.0) sec ABG pH (7.35-7.45) ABG pCO2 (35-45) mmHg ABG pO2 (83-108) mmHg ABG O2 Saturation (94-97) % Sodium 133 L (137-145) mmol/L Chloride (98-107) mmol/L Creatinine 0.50 L (0.52-1.04) mg/dL Glucose 204 H (74-99) mg/dL POC Glucose (mg/dL) (75-99) mg/dL Calcium 7.5 L (8.4-10.2) mg/dL Phosphorus 1.7 L (2.5-4.5) mg/dL Magnesium 2.4 H (1.6-2.3) mg/dL 06/16/17 06/16/17 06/16/17 Range/Units 05:45 05:47 07:45 RBC (3.80-5.40) m/uL Hgb (11.4-16.0) gm/dL Plt Count (150-450) k/uL Lymphocytes # (1.0-4.8) k/uL APTT (22.0-30.0) sec ABG pH 7.24 L (7.35-7.45) ABG pCO2 55 H (35-45) mmHg ABG pO2 (83-108) mmHg ABG O2 Saturation (94-97) % Sodium 134 L (137-145) mmol/L Chloride 108 H (98-107) mmol/L Creatinine 0.50 L (0.52-1.04) mg/dL Glucose 196 H (74-99) mg/dL POC Glucose (mg/dL) 181 H (75-99) mg/dL Calcium 7.7 L (8.4-10.2) mg/dL Phosphorus 1.7 L (2.5-4.5) mg/dL Magnesium 2.5 H (1.6-2.3) mg/dL 06/16/17 06/16/17 Range/Units 09:05 11:52 RBC (3.80-5.40) m/uL Hgb (11.4-16.0) gm/dL Plt Count (150-450) k/uL Lymphocytes # (1.0-4.8) k/uL APTT (22.0-30.0) sec ABG pH 7.25 L (7.35-7.45) ABG pCO2 51 H (35-45) mmHg ABG pO2 72 L (83-108) mmHg ABG O2 Saturation 91.4 L (94-97) % Sodium (137-145) mmol/L Chloride (98-107) mmol/L Creatinine (0.52-1.04) mg/dL Glucose (74-99) mg/dL POC Glucose (mg/dL) 126 H (75-99) mg/dL Calcium (8.4-10.2) mg/dL Phosphorus (2.5-4.5) mg/dL Magnesium (1.6-2.3) mg/dL Microbiology - Last 24 Hours (Table) 06/14/17 11:15 Gram Stain - Final Sputum Sputum Culture - Final Ayana albicans Yeast species 06/14/17 09:30 Urine Culture - Final Urine,Catheterized 06/13/17 10:53 Blood Culture - Preliminary Blood No Growth after 48 hours Assessment and Plan Plan: #1 Acute hypoxic respiratory failure secondary to an acute exacerbation of severe Gold stage III chronic obstructive pulmonary disease. And bilateral pneumonia is suspected. Patient is presently on mechanical ventilation. Her ventilator settings were adjusted accordingly, again her peak airway pressures and plateau pressures were noted. #2 Hyponatremia, corrected, sodium is 134 at present. #3 Hypokalemia, corrected, potassium is 4.2 today. #4 Small troponin leak. #5 Malabsorption syndrome, receiving TPN in the outpatient setting, secondary to total gastrectomy/esophagectomy with pull-through. patient on enteral feeding also. while in the ICU on mechanical ventilation, and the nasogastric tube was placed yesterday successfully. #6 Multiple previous pneumonias secondary to Pseudomonas, MRSA, Klebsiella and stenotrophomonas. Currently maintained on Bactrim in the outpatient setting. Presently on antibiotics as per Dr. Cruz on the case. Including Levaquin and cefepime. #7 Remote history of chronic tobacco use. And history of severe COPD. Patient is on bronchodilators and on steroids. #8 Hypothyroidism. #9 Osteoarthritis. #10 Poor overall functional performance based on the above-mentioned multiple comorbidities. Recommendation: Continue present ventilatory support, GI and DVT prophylaxis, nutritional support, antibiotics, overall prognostic picture is poor, critical care time is 35 minutes. We'll continue to follow closely. Time with Patient: Greater than 30
[2017-06-16] MEDS ORDERED: POTASSIUM PHOSPHATE 10 MMOL in SODIUM CHLORIDE 0.9% 100 ML IV ONE (13:00)
--- NOTE | 2017-06-16 16:09 | P.PN ---
Subjective This is a [id number] pleasant female patient of Dr. Javier Ledesma and Dr. Rader with known history of COPD, CVA, fibromyalgia, GERD, GI bleed, or she tried this, pneumonia and a previous line infection treated by Dr. Cruz last 09/14/2015, she was septic at that time required IV antibiotics with sepsis from her right chest wall cellulitis . Her last admission was September 2016 for left-sided pneumonia with sepsis, possible gram-negative pneumonia possible septic shock, no sputum cultures isolated during that last admission. Patient is known to have history of malabsorption she had partial gastrectomy followed by total gastrectomy with esophagectomy secondary to peptic ulcer disease and has been on TPN via port in the right side of her chest wall for the last few years had multiple complication previously but was hospitalized last time over a year ago.. She also has history of MRSA last one was 3 years ago arising from the neck abscess Patient presented to the emergency department at [facility] with severe shortness of breath, cough or 4 day duration, patient was started on Bactrim by Dr. Cruz, no prednisone from pulmonary service or PCP, patient did not get any better was subsequently admitted to the emergency room secondary to severe COPD exacerbation and right-sided pneumonia based on chest x-ray. Patient had fever and chills, fatigue and back pain near the right scapula In the emergency room COPD changes were noted and chest x-ray, with micronodular pattern, hiatal hernia with prominent lucency in the upper mediastinum stable with back 2012 , a vague infiltrate right upper lobe, upon arrival to emergency room, patient was wheezing with severe hypoxemic dyspnea tachypneic., patient required BiPAP Treatments,, patient is a full code and agrees to intubation if necessary 06/14: Patient required mechanical ventilation early this morning at around 7:30, and intubated by Dr. Miranda, patient was tachypneic and fatiguing with the BiPAP treatment, she also was hypoxemic despite BiPAP, she was severely acidotic based on ABG the pH of 7.04 pCO2 of 94, OG tube to be placed later today patient is sedated on a vent 06/15: Patient remains in ICU, mechanical ventilated and not requiring any pressors patient spiking some temperatures, blood cultures are pending, vancomycin added to current regimen of Levaquin and cefepime with prior history of MRSA Dr. Cruz following. TPN infusing as previous from home 06/16: Patient still mechanically vented sedated, worsening pneumonia noted on chest x-ray, patient still febrile, patient currently is on Levophed 6 mics adjustments antibiotic maintained on Levaquin and cefepime multiple specialists on the case Dr. Narayan Cruz Objective - Vital Signs Vital signs: Vital Signs Temp 99.5 F 06/16/17 12:00 Pulse 105 H 06/16/17 12:00 Resp 23 06/16/17 12:00 BP 106/54 06/16/17 12:00 Pulse Ox 93 L 06/16/17 12:00 Intake & Output 06/15/17 06/16/17 06/16/17 18:59 06:59 18:59 Intake Total 1720 3066.876 944.345 Output Total 695 585 430 Balance 1025 2481.876 514.345 Weight 56.2 kg Intake: IV 1610 1793 743 ACETAMINOPHEN IV (For NPO 100 ) 1,000 mg In Empty Bag 1 bag @ 400 mls/hr IVPB Q6HR PRN Rx#:[id number] Cefepime 2 gm In Sodium 50 100 60 Chloride 0.9% 50 ml @ 100 mls/hr IVPB Q12HR [facility] Rx #:[id number] Levofloxacin 750Mg-D5w 100 150 Pmx 750 mg In Dextrose/ Water 1 150ml.bag @ 100 mls/hr IVPB Q24H [facility] Rx#: [id number] Mvi, Adult No.4 with Vit 360 30 K 10 ml Trace (Conc-1Ml/ Dose) 1 ml Sodium Chloride 4Meq/ml Vial 20 meq In Amino Acid 5%-D15w +Lytes*E* 1,000 ml @ 30 mls/hr IV .Q24H [facility] Rx#: [id number] Pressure Bag 33 3 Sodium Chloride 0.9% 1, 1100 1200 350 000 ml @ 100 mls/hr IV . Q10H [facility] Rx#:[id number] TPN 330 180 Intake, IV Titration 100 1093.876 131.345 Amount Cefepime 2 gm In Sodium 50 Chloride 0.9% 50 ml @ 100 mls/hr IVPB Q12HR [facility] Rx #:[id number] Mvi, Adult No.4 with Vit 914 K 10 ml Trace (Conc-1Ml/ Dose) 1 ml Sodium Chloride 4Meq/ml Vial 20 meq In Amino Acid 5%-D15w +Lytes*E* 1,000 ml @ 30 mls/hr IV .Q24H [facility] Rx#: [id number] Norepinephrin 16 mg-0.9% 10.47 Ns Pmx 16 mg In 250 ml @ Titrate IV .Q0M [facility] Rx#: [id number] Propofol 1,000 mg In 100 100 179.876 70.875 ml @ Titrate IV .Q0M [facility] Rx#:[id number] Tube Feeding 10 90 70 Other 90 Output: Urine 695 585 430 Other: Voiding Method Indwelling Catheter Indwelling Catheter Indwelling Catheter ABP, PAP, CO, CI - Last Documented Arterial Blood Pressure 103/52 - Constitutional General appearance: Present: no acute distress - EENT Eyes: Present: anicteric sclerae, EOMI, PERRLA - Neck Neck: Absent: lymphadenopathy, normal ROM, other, rigidity, stridor, thyromegaly - Respiratory Respiratory: bilateral: diminished, rales, rhonchi - Cardiovascular Rhythm: regular Heart sounds: normal: S1, S2 Abnormal Heart Sounds: Absent: systolic murmur, diastolic murmur, rub, S3 Gallop , S4 Gallop, click, other - Gastrointestinal General gastrointestinal: Present: normal bowel sounds, soft - Integumentary Integumentary: Present: normal - Psychiatric Psychiatric: Present: appropriate affect - Additional findings Additional findings: Patient sedated vented in machine - Labs CBC & Chem 7: 06/16/17 05:45 06/16/17 05:45 Labs: Abnormal Lab Results - Last 24 Hours (Table) 06/15/17 06/15/17 06/15/17 Range/Units 18:04 23:37 23:40 RBC 3.48 L (3.80-5.40) m/uL Hgb 11.2 L (11.4-16.0) gm/dL Plt Count 146 L (150-450) k/uL Lymphocytes # (1.0-4.8) k/uL APTT (22.0-30.0) sec ABG pH (7.35-7.45) ABG pCO2 (35-45) mmHg ABG pO2 (83-108) mmHg ABG O2 Saturation (94-97) % Sodium (137-145) mmol/L Chloride (98-107) mmol/L Creatinine (0.52-1.04) mg/dL Glucose (74-99) mg/dL POC Glucose (mg/dL) 171 H 191 H (75-99) mg/dL Calcium (8.4-10.2) mg/dL Phosphorus (2.5-4.5) mg/dL Magnesium (1.6-2.3) mg/dL 06/15/17 06/15/17 06/16/17 Range/Units 23:40 23:40 05:45 RBC 3.52 L (3.80-5.40) m/uL Hgb 11.2 L (11.4-16.0) gm/dL Plt Count 138 L (150-450) k/uL Lymphocytes # 0.2 L (1.0-4.8) k/uL APTT 35.6 H (22.0-30.0) sec ABG pH (7.35-7.45) ABG pCO2 (35-45) mmHg ABG pO2 (83-108) mmHg ABG O2 Saturation (94-97) % Sodium 133 L (137-145) mmol/L Chloride (98-107) mmol/L Creatinine 0.50 L (0.52-1.04) mg/dL Glucose 204 H (74-99) mg/dL POC Glucose (mg/dL) (75-99) mg/dL Calcium 7.5 L (8.4-10.2) mg/dL Phosphorus 1.7 L (2.5-4.5) mg/dL Magnesium 2.4 H (1.6-2.3) mg/dL 06/16/17 06/16/17 06/16/17 Range/Units 05:45 05:47 07:45 RBC (3.80-5.40) m/uL Hgb (11.4-16.0) gm/dL Plt Count (150-450) k/uL Lymphocytes # (1.0-4.8) k/uL APTT (22.0-30.0) sec ABG pH 7.24 L (7.35-7.45) ABG pCO2 55 H (35-45) mmHg ABG pO2 (83-108) mmHg ABG O2 Saturation (94-97) % Sodium 134 L (137-145) mmol/L Chloride 108 H (98-107) mmol/L Creatinine 0.50 L (0.52-1.04) mg/dL Glucose 196 H (74-99) mg/dL POC Glucose (mg/dL) 181 H (75-99) mg/dL Calcium 7.7 L (8.4-10.2) mg/dL Phosphorus 1.7 L (2.5-4.5) mg/dL Magnesium 2.5 H (1.6-2.3) mg/dL 06/16/17 06/16/17 Range/Units 09:05 11:52 RBC (3.80-5.40) m/uL Hgb (11.4-16.0) gm/dL Plt Count (150-450) k/uL Lymphocytes # (1.0-4.8) k/uL APTT (22.0-30.0) sec ABG pH 7.25 L (7.35-7.45) ABG pCO2 51 H (35-45) mmHg ABG pO2 72 L (83-108) mmHg ABG O2 Saturation 91.4 L (94-97) % Sodium (137-145) mmol/L Chloride (98-107) mmol/L Creatinine (0.52-1.04) mg/dL Glucose (74-99) mg/dL POC Glucose (mg/dL) 126 H (75-99) mg/dL Calcium (8.4-10.2) mg/dL Phosphorus (2.5-4.5) mg/dL Magnesium (1.6-2.3) mg/dL Microbiology - Last 24 Hours (Table) 06/14/17 11:15 Gram Stain - Final Sputum Sputum Culture - Final Ayana albicans Yeast species 06/14/17 09:30 Urine Culture - Final Urine,Catheterized 06/13/17 10:53 Blood Culture - Preliminary Blood No Growth after 48 hours Assessment and Plan Plan: 1. Severe hypoxemic acute on chronic respiratory failure with chronic hypoxemia secondary to severe COPD exacerbation, sepsis , patient is currently on BiPAP treatments with nebulized albuterol Atrovent, and IV Solu-Medrol, oxygen supplementation, baseline home O2 is at 3 L nasal cannula, patient will be seen consultation by Dr. Miranda from pulmonary medicine. Patient is very ill at this point she would place and selective might need ICU prior to ER transfer if needed. Continue Singulair and Xopenex and Pulmicort 1 mg twice a day patient .patient currently is intubated 2. Acute respiratory failure requiring mechanical ventilation on 06/14/2017 critical care pulmonary physician Dr. Mrianda managing vent, OG tube to be placed with transitioning of her medications, oral feedings OG tube 3 right sided pneumonia sepsis with septic shock: Patient will be on IV antibiotics for now consult pulmonary critical care continue current management repeat chest x-ray in 1-2 days.. Patient has multiple drug ALLERGIES, and would be started on cefepime, and Levaquin with known history of pseudomonas infection in the past. Vancomycin added with prior history of MRSA Sputum cultures will be obtained. Consult with Dr. Cruz who knows her well for streamlining of antibiotics. Patient failed oral Bactrim prior to admission . mycoplasma antibody negative, sputum cultures pending 4 chronic hypoxemic respiratory failure on maintenance 3 L O2 at home 5 Chemistry abnormalities with hyponatremia, most likely secondary to severe pneumonia hyperkalemia, elevated mild AST and alkaline phosphatase, hypokalemia , chemistries will be followed closely 6 hypothyroidism continue levothyroxine at 100 g daily. 7 history of anxiety and panic attack: We'll provide Ativan1 mg 2times a day when necessary 8 history of neuropathy and fibromyalgia has been doing well on gabapentin along with Flexeril hold Flexeril we would restart once hypersomnia has stabilized. 9 chronic depression and depressive disorders continue patient on Cymbalta 90 mg daily.. 10 arrhythmia: Patient has been on metoprolol 25 g twice a day. 11 osteoporosis: Patient has been on Miacalcin along with calcium and vitamin D. 12 Severe malabsorption and malnutrition: Has been on TPN via port in the past and has been on maintenance infusions at home, TPN currently is infusing through MediPort right side GI prophylaxis: Patient will be on Pepcid 20 mg daily. DVT prophylaxis: Patient will have knee-high BARBARA hose and Venodyne boots. CODE STATUS: Full code. Condition guarded X Expected length of stay over 3 nights
[2017-06-16 18:18] LABS: Glucose,Whole Blood 185 mg/dL (75-99)
[2017-06-16] MEDS: DULoxetine HCL 30 MG CAPSULE.DR PO SCH (20:07)
[2017-06-16] MEDS: DILTIAZEM 125 MG in SODIUM CHLORIDE 0.9% 100 ML IV SCH (22:10)
[2017-06-16] MEDS: ACETAMINOPHEN IV (For NPO) 1,000 MG in EMPTY BAG 1 BAG IVPB PRN (23:01)
[2017-06-17] MEDS: methylPREDNISolone SOD SUCCI 125 MG/2 ML VIAL IV SCH ×4 (00:42→17:19)
[2017-06-17] MEDS: INSULIN LISPRO (humaLOG) 300 UNIT/3 ML VIAL SQ SCH ×4 (00:48→17:20)
[2017-06-17 00:49] LABS: Glucose,Whole Blood 139 mg/dL (75-99)
[2017-06-17] MEDS: PROPOFOL 1,000 MG/100 ML VIAL IV SCH ×3 (02:10→19:12)
[2017-06-17] MEDS: LORazepam 2 MG/ML INJ IV PRN ×2 (03:10→20:06)
[2017-06-17 03:59] LABS: Basophils % (A) 0 %; CH 31.6; CHCM 31.7; Eosinophils % (A) 0 %; HCT 35.7 % (34.0-46.0); HDW 3.05; HGB 11.2 gm/dL (11.4-16.0); Hypochromasia Slight; Luc # (Auto) 0.12; Luc % (Auto) 1; Lymphocytes # (A) 0.3 k/uL (1.0-4.8); Lymphocytes % (A) 4 %; MCH 31.6 pg (25.0-35.0); MCHC 31.5 g/dL (31.0-37.0); MCV 100.4 fL (80.0-100.0); Macrocytosis Slight; Mean Platelet Volume 7.9; Monocytes # (A) 0.2 k/uL (0-1.0); Monocytes % (A) 2 %; Neutrophils # (A) 7.5 k/uL (1.3-7.7); Neutrophils % (A) 92 %; RBC 3.55 m/uL (3.80-5.40); RDW 14.9 % (11.5-15.5); WBC 8.2 k/uL (3.8-10.6); WBC (Perox) 8.93
[2017-06-17] MEDS: [UNRECOGNIZED DRUG - REMARK] IV SCH ×14 (04:03→11:20)
[2017-06-17 04:14] LABS: Anion Gap 2 mmol/L; Blood Urea Nitrogen 16 mg/dL (7-17); Calcium 8.1 mg/dL (8.4-10.2); Carbon Dioxide 24 mmol/L (22-30); Chloride 109 mmol/L (98-107); Glucose 171 mg/dL (74-99); Magnesium 2.3 mg/dL (1.6-2.3); Non-African American GFR(MDRD) >60 (>60 ml/min/1.73 sqM); Phosphorus 1.6 mg/dL (2.5-4.5); Potassium 4.2 mmol/L (3.5-5.1); Sodium 135 mmol/L (137-145)
[2017-06-17] MEDS: HYDROmorphone 1 MG/ML 1 ML SYRINGE IVP PRN ×5 (06:20→22:49)
[2017-06-17 06:26] LABS: Glucose,Whole Blood 184 mg/dL (75-99)
[2017-06-17] MEDS: ACETAMINOPHEN IV (For NPO) 1,000 MG in EMPTY BAG 1 BAG IVPB PRN (07:00)
[2017-06-17] MEDS: BUDESONIDE 1 MG/2 ML NEBU INHALATION SCH ×2 (07:11→19:31)
[2017-06-17] MEDS: IPRATROPIUM 0.5 MG/2.5 ML NEBU INHALATION SCH ×4 (07:11→19:31)
[2017-06-17] MEDS: LEVALBUTEROL NEB 1.25 MG/3 ML AMP INHALATION SCH ×4 (07:11→19:31)
--- NOTE | 2017-06-17 07:20 | XR ---
EXAMINATION TYPE: XR chest 1V portable DATE OF EXAM: 06/17/2017 COMPARISON: 06/16/2017 and 02/15/2017 HISTORY: Tube placement TECHNIQUE: Single frontal view of the chest is obtained. FINDINGS: Endotracheal and enteric tubes as well as right sided Mediport are unchanged in positionin g with the fenestrated portion of the enteric tube just beyond the gastroesophageal junction. The lungs are hyperinflated with flattening of the diaphragms. Multifocal left-sided consolidations w ithin the left lung apex and left lung base are similar to the prior exam with air bronchograms demon strated. The previously seen nodular density within the right midlung persists and is overall unchanged from t he examination of 02/15/2017. The previously seen left midlung nodular density is obscured by left hil ar airspace disease. IMPRESSION: 1. Persistent and overall unchanged multifocal left lung opacities on background of pulmonary emphyse ma. Primary diagnostic consideration is for multifocal pneumonia. 2. Similar right midlung nodular density and obscured nodular density within the left midlung. CT tho rax is recommended for further characterization after resolution of symptoms as subcentimeter pulmona ry nodules may be obscured by the current multifocal left airspace disease.
[2017-06-17] MEDS: PANTOPRAZOLE 40 MG/10 ML VIAL IV SCH (08:31)
[2017-06-17] MEDS: ENOXAPARIN 40 MG/0.4 ML SYRINGE SQ SCH (08:31)
[2017-06-17] MEDS: LEVOTHYROXINE IVP 100 MCG/5 ML VIAL IV SCH (08:31)
[2017-06-17] MEDS: CEFEPIME 2 GM in SODIUM CHLORIDE 0.9% 50 ML IVPB SCH ×2 (08:32→20:03)
[2017-06-17] MEDS: CHLORHEXIDINE GLUCONATE 15 ML CUP MUCOUS MEM SCH ×2 (08:32→20:03)
[2017-06-17] MEDS: DULoxetine HCL 30 MG CAPSULE.DR PO SCH (08:33)
[2017-06-17] MEDS: ASPIRIN 81 MG PO SCH (08:33)
[2017-06-17] MEDS: DULoxetine HCL 60 MG CAPSULE.DR PO SCH (08:33)
[2017-06-17 08:37] LABS: ABG PCO2 45 mmHg (35-45)
[2017-06-17 08:38] LABS: ABG HCO3 22 mmol/L (21-25); ABG PO2 69 mmHg (83-108); ABG TCO2 23 mmol/L (19-24)
[2017-06-17] MEDS: METOPROLOL TARTRATE 25 MG TAB PO SCH ×2 (08:57→20:03)
--- NOTE | 2017-06-17 10:23 | P.PN ---
Subjective Progress note dated 06/17/2017 This is a 61-year-old female well-known to me. The patient has a history of very severe COPD. She's asked to stage IV disease. She was admitted on June 13. She was intubated on June 14 for respiratory failure. I ended up but talking to the daughter. I must go to talk to the . The patient never really wanted to be on life support. They're thinking about withdrawing life support on her. She has a history of hypercapnic and hypoxemic respiratory failure. Other diagnoses include hyponatremia electrolyte disturbance small troponin leak malabsorption syndrome multiple previous pneumonias including Klebsiella MRSA Pseudomonas stenotrophomonas and other bacteria remote history of chronic tobacco use hypothyroidism osteoarthritis in general medical debility with malnutrition. The patient's doing poorly. The patient will probably need a tracheostomy and a feeding tube if they're to continue life support. Again I will speak to the Chris the [place]. I did speak to the daughter. The patient's currently on the assist control mode rate of 24 to be increased to 30 tidal volume 450 FiO2 45% PEEP of 5. We'll drop the time of I'm down from 450-350 the patient's blood gases show a PaO2 of 69 and pCO2 45 and a pH of 7.30. The patient is receiving a saline IV at 50 mL an hour TPN at 30 mL an hour the propofol which is currently off and norepinephrine which is currently off. The patient's chest x-ray shows significant left basilar airspace disease. Objective - Vital Signs Vital signs: Vital Signs Temp 99.6 F 06/17/17 08:00 Pulse 106 H 06/17/17 10:00 Resp 27 H 06/17/17 10:00 BP 106/54 06/16/17 13:00 Pulse Ox 93 L 06/17/17 10:00 Intake & Output 06/16/17 06/17/17 06/17/17 18:59 06:59 18:59 Intake Total 7153.028 5549.564 588.880 Output Total 755 715 335 Balance 922.845 714.564 253.880 Weight 56.2 kg 53 kg 53 kg Intake: IV 1325 1071 382 Cefepime 2 gm In Sodium 60 50 50 Chloride 0.9% 50 ml @ 100 mls/hr IVPB Q12HR [facility] Rx #:[id number] Levofloxacin 750Mg-D5w 150 Pmx 750 mg In Dextrose/ Water 1 150ml.bag @ 100 mls/hr IVPB Q24H [facility] Rx#: [id number] Normal Saline 550 200 Pressure Bag 30 36 12 Sodium Chloride 0.9% 1, 725 75 000 ml @ 100 mls/hr IV . Q10H [facility] Rx#:[id number] TPN 360 360 120 Intake, IV Titration 232.845 98.564 66.880 Amount Cefepime 2 gm In Sodium 50 Chloride 0.9% 50 ml @ 100 mls/hr IVPB Q12HR [facility] Rx #:[id number] Diltiazem 125 mg In 6.833 Sodium Chloride 0.9% 100 ml @ 5 MG/HR 5 mls/hr IV .Q24H [facility] Rx#:[id number] Norepinephrin 16 mg-0.9% 11.97 Ns Pmx 16 mg In 250 ml @ Titrate IV .Q0M [facility] Rx#: [id number] Propofol 1,000 mg In 100 170.875 91.731 66.880 ml @ Titrate IV .Q0M [facility] Rx#:[id number] Tube Feeding 120 110 50 Other 150 90 Output: Urine 755 715 335 Other: Voiding Method Indwelling Catheter Indwelling Catheter Indwelling Catheter ABP, PAP, CO, CI - Last Documented Arterial Blood Pressure 123/69 - Exam No acute distress, somewhat dyssynchronous with the ventilator. The patient's current orally placed endotracheal tube. HEENT examination is grossly unremarkable. Mucous membranes are moist. No oral lesions. Neck supple. Full range of motion. No adenopathy or thyromegaly. Cardiovascular examination reveals regular rhythm rate. S1-S2 normal. No S3- S4 or murmur. Lungs reveal coarse rhonchi. Breath sounds are diminished. Breath sounds are equal. No crackles. Abdomen soft. Extremities are intact. No cyanosis clubbing or edema. Skin is without rash. Neurologic examination cannot be performed. - Labs CBC & Chem 7: 06/17/17 03:20 06/17/17 03:20 Labs: Abnormal Lab Results - Last 24 Hours (Table) 06/16/17 06/16/17 06/17/17 Range/Units 11:52 18: 00:46 RBC (3.80-5.40) m/uL Hgb (11.4-16.0) gm/dL MCV (80.0-100.0) fL Lymphocytes # (1.0-4.8) k/uL ABG pH (7.35-7.45) ABG pO2 (83-108) mmHg ABG O2 Saturation (94-97) % Sodium (137-145) mmol/L Chloride (98-107) mmol/L Creatinine (0.52-1.04) mg/dL Glucose (74-99) mg/dL POC Glucose (mg/dL) 126 H 185 H 139 H (75-99) mg/dL Calcium (8.4-10.2) mg/dL Phosphorus (2.5-4.5) mg/dL 06/17/17 06/17/17 06/17/17 Range/Units 03:20 03:20 06:24 RBC 3.55 L (3.80-5.40) m/uL Hgb 11.2 L (11.4-16.0) gm/dL MCV 100.4 H (80.0-100.0) fL Lymphocytes # 0.3 L (1.0-4.8) k/uL ABG pH (7.35-7.45) ABG pO2 (83-108) mmHg ABG O2 Saturation (94-97) % Sodium 135 L (137-145) mmol/L Chloride 109 H (98-107) mmol/L Creatinine 0.50 L (0.52-1.04) mg/dL Glucose 171 H (74-99) mg/dL POC Glucose (mg/dL) 184 H (75-99) mg/dL Calcium 8.1 L (8.4-10.2) mg/dL Phosphorus 1.6 L (2.5-4.5) mg/dL 06/17/17 Range/Units 08:25 RBC (3.80-5.40) m/uL Hgb (11.4-16.0) gm/dL MCV (80.0-100.0) fL Lymphocytes # (1.0-4.8) k/uL ABG pH 7.30 L (7.35-7.45) ABG pO2 69 L (83-108) mmHg ABG O2 Saturation 92.0 L (94-97) % Sodium (137-145) mmol/L Chloride (98-107) mmol/L Creatinine (0.52-1.04) mg/dL Glucose (74-99) mg/dL POC Glucose (mg/dL) (75-99) mg/dL Calcium (8.4-10.2) mg/dL Phosphorus (2.5-4.5) mg/dL Microbiology - Last 24 Hours (Table) 06/13/17 10:53 Blood Culture - Preliminary Blood No Growth after 72 hours 06/14/17 11:15 Gram Stain - Final Sputum Sputum Culture - Final Ayana albicans Yeast species Assessment and Plan (1) Acute respiratory failure Status: Acute (2) COPD (chronic obstructive pulmonary disease) Status: Acute (3) Hypoxia Status: Acute (4) Pneumonia Status: Acute (5) Sepsis Status: Acute (6) Anxiety disorder Status: Acute (7) Bloodstream infection due to Maria catheter Status: Acute (8) Cardiomyopathy due metabolic or nutritional disease Status: Acute (9) Degenerative disc disease Status: Acute (10) Depressive disorder Status: Acute (11) Fibromyalgia Status: Acute (12) Gram-negative pneumonia Status: Acute (13) History of MRSA infection of lungs Status: Acute (14) Lactic acidosis Status: Acute (15) Malabsorption syndrome Status: Acute (16) Pseudomonas aeruginosa infection Status: Acute (17) Vitamin D deficiency Status: Acute Plan: Plan dated 06/17/2017 The patient's daughter was spoken to. I will also take the time to speak to the patient's . Overall prognosis is poor. We'll make some adjustments of the mechanical ventilator. We'll increase the rate to 30. We'll drop the time of I'm down to 350. The patient is currently being nurse and vital 1.2 at 10 mL an hour. Also receiving TPN at 30 mL an hour. The patient's likelihood of successful weaning and extubation are small. The family understands that. We'll continue to follow. Prognosis is poor. I have had discussions with Janet in the past about not going on life support. I'm surprised that she's currently on life support. Critical care time is 38 minutes. Time with Patient: Greater than 30
[2017-06-17 10:31] VITALS: BMI 21.3
[2017-06-17] MEDS: SODIUM CHLORIDE 0.9% 1,000 ML IV SCH (10:31)
[2017-06-17] MEDS: LEVOFLOXACIN 750MG-D5W PMX 750 MG in DEXTROSE/WATER 1 150ML.BAG IVPB SCH (10:31)
[2017-06-17 12:00] LABS: Glucose,Whole Blood 177 mg/dL (75-99)
[2017-06-17 12:03] LABS: Glucose,Whole Blood 191 mg/dL (75-99)
[2017-06-17] MEDS: FOLIC ACID 1 MG TAB PO SCH (12:10)
[2017-06-17] MEDS: CHOLECALCIFEROL 1,000 UNIT TAB PO SCH (12:11)
[2017-06-17] MEDS: MAGNESIUM OXIDE 400 MG TAB PO SCH (12:11)
--- NOTE | 2017-06-17 14:21 | P.PN ---
Subjective This is a 61-year-old pleasant female patient of Dr. Javier Ledesma and Dr. Rader with known history of COPD, CVA, fibromyalgia, GERD, GI bleed, pneumonia and a previous line infections treated by Dr. Cruz last 09/14/2015, she was septic at that time required IV antibiotics with sepsis from her right chest wall cellulitis. Her last admission was September 2016 for left-sided pneumonia with sepsis, possible gram-negative pneumonia possible septic shock, no sputum cultures isolated during that last admission. Patient is known to have history of malabsorption she had partial gastrectomy followed by total gastrectomy with esophagectomy secondary to peptic ulcer disease and has been on TPN via port in the right side of her chest wall for the last few years had multiple complication previously but was hospitalized last time over a year ago.. She also has history of MRSA last one was 3 years ago arising from the neck abscess Patient presented to the emergency department at [facility] with severe shortness of breath, cough or 4 day duration, patient was started on Bactrim by Dr. Cruz, no prednisone from pulmonary service or PCP, patient did not get any better was subsequently admitted to the emergency room secondary to severe COPD exacerbation and right-sided pneumonia based on chest x-ray. Patient had fever and chills, fatigue and back pain near the right scapula In the emergency room COPD changes were noted and chest x-ray, with micronodular pattern, hiatal hernia with prominent lucency in the upper mediastinum stable with back 2012, a vague infiltrate right upper lobe, upon arrival to emergency room, patient was wheezing with severe hypoxemic dyspnea tachypneic., patient required BiPAP, treatments, patient is a full code and agrees to intubation if necessary 06/14: Patient required mechanical ventilation early this morning at around 7:30, and intubated by Dr. Miranda, patient was tachypneic and fatiguing with the BiPAP treatment, she also was hypoxemic despite BiPAP, she was severely acidotic based on ABG the pH of 7.04 pCO2 of 94, OG tube to be placed later today patient is sedated on a vent 06/15: Patient remains in ICU, mechanical ventilated and not requiring any pressors patient spiking some temperatures, blood cultures are pending, vancomycin added to current regimen of Levaquin and cefepime with prior history of MRSA Dr. Cruz following. TPN infusing as previous from home 06/16: Patient still mechanically vented sedated, worsening pneumonia noted on chest x-ray, patient still febrile, patient currently is on Levophed 6 mics adjustments antibiotic maintained on Levaquin and cefepime multiple specialists on the case Dr. Narayan Cruz 06/17: Patient was seen and evaluated today, no change in patients condition. She still remains in the ICU, mechanical ventilated. Repeat chest x-ray showed persistent unchanged multifocal left lung opacities. She continues received cefepime and levofloxacin for her pneumonia. Pulmonary is on consult, the chances of weaning and extubation off the ventilator are poor, prognosis is poor. Comfort care will be discussed with the family. Objective - Vital Signs Vital signs: Vital Signs Temp 99.6 F 06/17/17 08:00 Pulse 100 06/17/17 08:00 Resp 24 06/17/17 08:00 BP 106/54 06/16/17 13:00 Pulse Ox 96 06/17/17 08:00 Intake & Output 06/16/17 06/17/17 06/17/17 18:59 06:59 18:59 Intake Total 0616.282 0099.564 495.880 Output Total 755 715 275 Balance 922.845 714.564 220.880 Weight 56.2 kg 53 kg 53 kg Intake: IV 1325 1071 299 Cefepime 2 gm In Sodium 60 50 50 Chloride 0.9% 50 ml @ 100 mls/hr IVPB Q12HR [facility] Rx #:[id number] Levofloxacin 750Mg-D5w 150 Pmx 750 mg In Dextrose/ Water 1 150ml.bag @ 100 mls/hr IVPB Q24H [facility] Rx#: [id number] Normal Saline 550 150 Pressure Bag 30 36 9 Sodium Chloride 0.9% 1, 725 75 000 ml @ 100 mls/hr IV . Q10H [facility] Rx#:[id number] TPN 360 360 90 Intake, IV Titration 232.845 98.564 66.880 Amount Cefepime 2 gm In Sodium 50 Chloride 0.9% 50 ml @ 100 mls/hr IVPB Q12HR [facility] Rx #:[id number] Diltiazem 125 mg In 6.833 Sodium Chloride 0.9% 100 ml @ 5 MG/HR 5 mls/hr IV .Q24H [facility] Rx#:[id number] Norepinephrin 16 mg-0.9% 11.97 Ns Pmx 16 mg In 250 ml @ Titrate IV .Q0M [facility] Rx#: [id number] Propofol 1,000 mg In 100 170.875 91.731 66.880 ml @ Titrate IV .Q0M [facility] Rx#:[id number] Tube Feeding 120 110 40 Other 150 90 Output: Urine 755 715 275 Other: Voiding Method Indwelling Catheter Indwelling Catheter Indwelling Catheter ABP, PAP, CO, CI - Last Documented Arterial Blood Pressure 92/47 - Exam - Constitutional General appearance: Present: no acute distress - EENT Eyes: Present: anicteric sclerae, EOMI, PERRLA - Neck Neck: Absent: lymphadenopathy, normal ROM, other, rigidity, stridor, thyromegaly - Respiratory Respiratory: bilateral: diminished, rales, rhonchi - Cardiovascular Rhythm: regular Heart sounds: normal: S1, S2 Abnormal Heart Sounds: Absent: systolic murmur, diastolic murmur, rub, S3 Gallop , S4 Gallop, click, other - Gastrointestinal General gastrointestinal: Present: normal bowel sounds, soft - Integumentary Integumentary: Present: normal - Psychiatric Psychiatric: Present: appropriate affect - Additional findings Additional findings: Patient sedated vented in machine - Labs CBC & Chem 7: 06/17/17 03:20 06/17/17 03:20 Labs: Abnormal Lab Results - Last 24 Hours (Table) 06/16/17 06/16/17 06/16/17 Range/Units 09:05 11:52 18:17 RBC (3.80-5.40) m/uL Hgb (11.4-16.0) gm/dL MCV (80.0-100.0) fL Lymphocytes # (1.0-4.8) k/uL ABG pH 7.25 L (7.35-7.45) ABG pCO2 51 H (35-45) mmHg ABG pO2 72 L (83-108) mmHg ABG O2 Saturation 91.4 L (94-97) % Sodium (137-145) mmol/L Chloride (98-107) mmol/L Creatinine (0.52-1.04) mg/dL Glucose (74-99) mg/dL POC Glucose (mg/dL) 126 H 185 H (75-99) mg/dL Calcium (8.4-10.2) mg/dL Phosphorus (2.5-4.5) mg/dL 06/17/17 06/17/17 06/17/17 Range/Units 00:46 03:20 03:20 RBC 3.55 L (3.80-5.40) m/uL Hgb 11.2 L (11.4-16.0) gm/dL MCV 100.4 H (80.0-100.0) fL Lymphocytes # 0.3 L (1.0-4.8) k/uL ABG pH (7.35-7.45) ABG pCO2 (35-45) mmHg ABG pO2 (83-108) mmHg ABG O2 Saturation (94-97) % Sodium 135 L (137-145) mmol/L Chloride 109 H (98-107) mmol/L Creatinine 0.50 L (0.52-1.04) mg/dL Glucose 171 H (74-99) mg/dL POC Glucose (mg/dL) 139 H (75-99) mg/dL Calcium 8.1 L (8.4-10.2) mg/dL Phosphorus 1.6 L (2.5-4.5) mg/dL 06/17/17 06/17/17 Range/Units 06:24 08:25 RBC (3.80-5.40) m/uL Hgb (11.4-16.0) gm/dL MCV (80.0-100.0) fL Lymphocytes # (1.0-4.8) k/uL ABG pH 7.30 L (7.35-7.45) ABG pCO2 (35-45) mmHg ABG pO2 69 L (83-108) mmHg ABG O2 Saturation 92.0 L (94-97) % Sodium (137-145) mmol/L Chloride (98-107) mmol/L Creatinine (0.52-1.04) mg/dL Glucose (74-99) mg/dL POC Glucose (mg/dL) 184 H (75-99) mg/dL Calcium (8.4-10.2) mg/dL Phosphorus (2.5-4.5) mg/dL Microbiology - Last 24 Hours (Table) 06/13/17 10:53 Blood Culture - Preliminary Blood No Growth after 72 hours 06/14/17 11:15 Gram Stain - Final Sputum Sputum Culture - Final Ayana albicans Yeast species Assessment and Plan Plan: 1. Severe hypoxemic acute on chronic respiratory failure with chronic hypoxemia secondary to severe COPD exacerbation, sepsis. Patient is currently on mechanical ventilation. Treatments with nebulized Xopenex, budesonide and IV Solu-Medrol. 2. Acute respiratory failure requiring mechanical ventilation on 06/14/2017. Critical care pulmonary physician Dr. Miranda managing vent, OG tube to be placed with transitioning of her medications, oral feedings OG tube 3. Right sided pneumonia, sepsis with septic shock. Patient will be on IV antibiotics for now, critical care and pulmonary on consult. Patient has multiple drug ALLERGIES, and would be started on cefepime, and Levaquin with known history of pseudomonas infection in the past. Sputum cultures obtained show Ayana albicans. Consult with Dr. Cruz who knows her well for streamlining of antibiotics. Patient failed oral Bactrim prior to admission. Mycoplasma antibody negative 4. Chronic hypoxemic respiratory failure. On mechanical ventilation. 5. Chemistry abnormalities with hyponatremia, most likely secondary to severe pneumonia hyperkalemia, elevated mild AST and alkaline phosphatase, hypokalemia , chemistries will be followed closely 6. Hypothyroidism. Continue levothyroxine at 50 g daily. 7. History of anxiety and panic attack. We'll provide Ativan 1 mg 2 times a day when necessary 8. History of neuropathy and fibromyalgia. Continue Cymbalta 9. Chronic depression and depressive disorders. Continue patient on Cymbalta 90 mg daily. 10. Arrhythmia. Patient has been on metoprolol 25 g twice a day. 11. Osteoporosis. Patient has been on Miacalcin along with calcium and vitamin D. 12 Severe malabsorption and malnutrition: Has been on TPN via port in the past and has been on maintenance infusions at home, TPN currently is infusing through [facility] right side GI prophylaxis: Patient will be on Protonix 40 mg IV daily DVT prophylaxis: Patient will have knee-high BARBARA hose and Venodyne boots. The above impression and plan of care have been discussed and directed by signing physician. Karis Gil nurse practitioner acting as scribe for signing physician.
[2017-06-17 17:18] LABS: Glucose,Whole Blood 183 mg/dL (75-99)
[2017-06-17] MEDS: DILTIAZEM 125 MG in SODIUM CHLORIDE 0.9% 100 ML IV SCH (19:13)
--- NOTE | 2017-06-17 21:31 | P.PN ---
Subjective Principal diagnosis: Respiratory failure 61-year-old female presents to the emergency center complaining of significant shortness of breath. She is well-known to the pulmonology group as well as infectious disease regarding her many pulmonary infections and bouts of sepsis in the past. She has advanced pulmonary disease with Gold stage III lung disease. She often utilizes oxygen and has been on steroids intermittently. At the time of presentation a is a center she was profoundly short of breath. She required initiation of BiPAP to maintain her respiratory status. Her respiratory status deteriorated and she required intubation with mechanical ventilation earlier today and she was moved to intensive care unit for ongoing care. She is not having Laura and hypotension but has ongoing respiratory failure. Nursing staff relates the time of intubation a gross amount of grossly purulent secretions were obtained from the endotracheal tube. Since she has had some significant improvement of her pulmonary status and her oxygenation. She has a history of multiple infections including Pseudomonas aeruginosa. She has had port infection last one is for more a year ago. At this time as noted she is intubated sedated and mechanically ventilated. She is comfortable. The nursing staff relates to no other acute concerns and has been improvement of her ventilation. The patient's and daughter and family are presentagain today Extensive discussion ensues about her current intubation status. She does have advanced COPD. The concern would be that she will fail weaning If she fails weaning she within need to have a tracheostomy and plans for long-term vent treatment. Additionally to that she's had no significant improvement and mild decline in her pulmonary status in the last day. Objective - Vital Signs Vital signs: Vital Signs Temp 98.5 F 06/17/17 16:00 Pulse 109 H 06/17/17 19:51 Resp 21 06/17/17 19:30 BP 106/54 06/16/17 13:00 Pulse Ox 95 06/17/17 19:30 Intake & Output 06/17/17 06/17/17 06/18/17 06:59 18:59 06:59 Intake Total 3429.290 2452.509 172.901 Output Total 715 950 60 Balance 714.564 561.509 112.901 Weight 53 kg 53 kg Intake: IV 1071 1146 83 Cefepime 2 gm In Sodium 50 50 Chloride 0.9% 50 ml @ 100 mls/hr IVPB Q12HR [facility] Rx #:[id number] Levofloxacin 750Mg-D5w 100 Pmx 750 mg In Dextrose/ Water 1 150ml.bag @ 100 mls/hr IVPB Q24H [facility] Rx#: [id number] Normal Saline 550 600 50 Pressure Bag 36 36 3 Sodium Chloride 0.9% 1, 75 000 ml @ 100 mls/hr IV . Q10H [facility] Rx#:[id number] TPN 360 360 30 Intake, IV Titration 98.564 95.509 79.901 Amount Diltiazem 125 mg In 6.833 Sodium Chloride 0.9% 100 ml @ 5 MG/HR 5 mls/hr IV .Q24H [facility] Rx#:[id number] Norepinephrin 16 mg-0.9% 7.735 Ns Pmx 16 mg In 250 ml @ Titrate IV .Q0M [facility] Rx#: [id number] Propofol 1,000 mg In 100 91.731 87.774 79.901 ml @ Titrate IV .Q0M [facility] Rx#:[id number] Tube Feeding 110 150 10 Other 150 120 Output: Urine 715 950 60 Other: Voiding Method Indwelling Catheter Indwelling Catheter ABP, PAP, CO, CI - Last Documented Arterial Blood Pressure 133/63 - Exam 61-year-old female who was admitted very thin but not cachectic build. She is intubated sedated and mechanically ventilated. HEENT: Anicteric conjunctiva are pink and moist nasal mucosa grossly intact without significant lesions, there is no thrush. No lesions noted around the endotracheal tube Neck: The neck is supple without significant lymphadenopathy or thyromegaly. Lungs: There is symmetrical air entry. There are coarse crackles and wheezes scattered throughout the lung jeter.) Considerably better than prior. Minimal dullness is noted to the bilateral bases. Heart: Regular rate and rhythm with an audible S1-S2, no S3 no S4. There is no significant murmur click or rub, PMI was nondisplaced. Abdomen: Positive bowel sounds soft and nontender without palpable masses or organomegaly. There was no guarding or rebound. Extremities: The upper extremities have excellent pulses they are symmetric, no significant petechiae or telangiectasia. No splinter hemorrhages were noted. The lower extremities are free from significant edema. The peripheral pulses were 2+ and symmetric. Neuro: Sedated - Labs CBC & Chem 7: 06/17/17 03:20 06/17/17 03:20 Labs: Abnormal Lab Results - Last 24 Hours (Table) 06/17/17 06/17/17 06/17/17 Range/Units 00:46 03:20 03:20 RBC 3.55 L (3.80-5.40) m/uL Hgb 11.2 L (11.4-16.0) gm/dL MCV 100.4 H (80.0-100.0) fL Lymphocytes # 0.3 L (1.0-4.8) k/uL ABG pH (7.35-7.45) ABG pO2 (83-108) mmHg ABG O2 Saturation (94-97) % Sodium 135 L (137-145) mmol/L Chloride 109 H (98-107) mmol/L Creatinine 0.50 L (0.52-1.04) mg/dL Glucose 171 H (74-99) mg/dL POC Glucose (mg/dL) 139 H (75-99) mg/dL Calcium 8.1 L (8.4-10.2) mg/dL Phosphorus 1.6 L (2.5-4.5) mg/dL 06/17/17 06/17/17 06/17/17 Range/Units 06:24 08:25 11:58 RBC (3.80-5.40) m/uL Hgb (11.4-16.0) gm/dL MCV (80.0-100.0) fL Lymphocytes # (1.0-4.8) k/uL ABG pH 7.30 L (7.35-7.45) ABG pO2 69 L (83-108) mmHg ABG O2 Saturation 92.0 L (94-97) % Sodium (137-145) mmol/L Chloride (98-107) mmol/L Creatinine (0.52-1.04) mg/dL Glucose (74-99) mg/dL POC Glucose (mg/dL) 184 H 177 H (75-99) mg/dL Calcium (8.4-10.2) mg/dL Phosphorus (2.5-4.5) mg/dL 06/17/17 06/17/17 Range/Units 12:01 17:16 RBC (3.80-5.40) m/uL Hgb (11.4-16.0) gm/dL MCV (80.0-100.0) fL Lymphocytes # (1.0-4.8) k/uL ABG pH (7.35-7.45) ABG pO2 (83-108) mmHg ABG O2 Saturation (94-97) % Sodium (137-145) mmol/L Chloride (98-107) mmol/L Creatinine (0.52-1.04) mg/dL Glucose (74-99) mg/dL POC Glucose (mg/dL) 191 H 183 H (75-99) mg/dL Calcium (8.4-10.2) mg/dL Phosphorus (2.5-4.5) mg/dL Microbiology - Last 24 Hours (Table) 06/13/17 10:53 Blood Culture - Preliminary Blood No Growth after 96 hours Laboratory Results WBC 8.2 k/uL (3.8-10.6) 06/17/17 03:20 RBC 3.55 m/uL (3.80-5.40) L 06/17/17 03:20 Hgb 11.2 gm/dL (11.4-16.0) L 06/17/17 03:20 Hct 35.7 % (34.0-46.0) 06/17/17 03:20 MCV 100.4 fL (80.0-100.0) H 06/17/17 03:20 MCH 31.6 pg (25.0-35.0) 06/17/17 03:20 MCHC 31.5 g/dL (31.0-37.0) 06/17/17 03:20 RDW 14.9 % (11.5-15.5) 06/17/17 03:20 Plt Count 170 k/uL (150-450) 06/17/17 03:20 Neutrophils % 92 % 06/17/17 03:20 Lymphocytes % 4 % 06/17/17 03:20 Monocytes % 2 % 06/17/17 03:20 Eosinophils % 0 % 06/17/17 03:20 Basophils % 0 % 06/17/17 03:20 Neutrophils # 7.5 k/uL (1.3-7.7) 06/17/17 03:20 Lymphocytes # 0.3 k/uL (1.0-4.8) L 06/17/17 03:20 Monocytes # 0.2 k/uL (0-1.0) 06/17/17 03:20 Eosinophils # 0.0 k/uL (0-0.7) 06/17/17 03:20 Basophils # 0.0 k/uL (0-0.2) 06/17/17 03:20 Hypochromasia Slight 06/17/17 03:20 Macrocytosis Slight 06/17/17 03:20 PT 10.2 sec (9.0-12.0) 06/15/17 23:40 INR 1.0 (<1.2) 06/15/17 23:40 APTT 35.6 sec (22.0-30.0) H 06/15/17 23:40 Sample Site tyrone 06/17/17 08:25 ABG pH 7.30 (7.35-7.45) L 06/17/17 08:25 ABG pCO2 45 mmHg (35-45) 06/17/17 08:25 ABG pO2 69 mmHg (83-108) L 06/17/17 08:25 ABG HCO3 22 mmol/L (21-25) 06/17/17 08:25 ABG Total CO2 23 mmol/L (19-24) 06/17/17 08:25 ABG O2 Saturation 92.0 % (94-97) L 06/17/17 08:25 ABG Base Excess -4.0 mmol/L 06/17/17 08:25 FiO2 45 % 06/17/17 08:25 Sodium 135 mmol/L (137-145) L 06/17/17 03:20 Potassium 4.2 mmol/L (3.5-5.1) 06/17/17 03:20 Chloride 109 mmol/L (98-107) H 06/17/17 03:20 Carbon Dioxide 24 mmol/L (22-30) 06/17/17 03:20 Anion Gap 2 mmol/L 06/17/17 03:20 BUN 16 mg/dL (7-17) 06/17/17 03:20 Creatinine 0.50 mg/dL (0.52-1.04) L 06/17/17 03:20 Est GFR (MDRD) Af Amer >60 (>60 ml/min/1.73 sqM) 06/17/17 03:20 Est GFR (MDRD) Non-Af >60 (>60 ml/min/1.73 sqM) 06/17/17 03:20 Glucose 171 mg/dL (74-99) H 06/17/17 03:20 POC Glucose (mg/dL) 183 mg/dL (75-99) H 06/17/17 17:16 POC Glu Training Manager ID Charissa Zapien 06/17/17 17:[address] Glu mg/dL 126 mg/dL 06/15/17 04:02 Hemoglobin A1c 6.0 % (4.2-6.1) 06/15/17 04:02 Plasma Lactic Acid [place] 1.2 mmol/L (0.7-2.0) 06/15/17 06:14 Calcium 8.1 mg/dL (8.4-10.2) L 06/17/17 03:20 Ionized Calcium Farhad 4.6 mg/dL (4.5-5.3) 06/14/17 10:47 Phosphorus 1.6 mg/dL (2.5-4.5) L 06/17/17 03:20 Magnesium 2.3 mg/dL (1.6-2.3) 06/17/17 03:20 Total Bilirubin 0.4 mg/dL (0.2-1.3) 06/13/17 10:53 AST 51 U/L (14-36) H 06/13/17 10:53 ALT 39 U/L (9-52) 06/13/17 10:53 Alkaline Phosphatase 132 U/L (38-126) H 06/13/17 10:53 Total Creatine Kinase 69 U/L (30-135) 06/13/17 10:53 CK-MB (CK-2) 2.0 ng/mL (0.0-2.4) 06/13/17 10:53 CK-MB (CK-2) Rel Index 2.9 06/13/17 10:53 Troponin I 0.135 ng/mL (0.000-0.034) H* 06/13/17 10:53 Total Protein 5.8 g/dL (6.3-8.2) L 06/13/17 10:53 Albumin 2.6 g/dL (3.5-5.0) L 06/14/17 10:47 Triglycerides 114 mg/dL (<150) 06/14/17 10:47 TSH 0.038 mIU/L (0.465-4.680) L 06/15/17 04:02 Free T4 1.61 ng/dL (0.78-2.19) 06/15/17 04:02 Urine Color Yellow 06/14/17 09:30 Urine Appearance Cloudy (Clear) H 06/14/17 09:30 Urine pH 6.0 (5.0-8.0) 06/14/17 09:30 Ur Specific [employer] 1.014 (1.001-1.035) 06/14/17 09:30 Urine Protein 2+ (Negative) H 06/14/17 09:30 Urine Glucose (UA) Negative (Negative) 06/14/17 09:30 Urine Ketones 1+ (Negative) H 06/14/17 09:30 Urine Blood Moderate (Negative) H 06/14/17 09:30 Urine Nitrite Negative (Negative) 06/14/17 09:30 Urine Bilirubin Negative (Negative) 06/14/17 09:30 Urine Urobilinogen <2.0 mg/dL (<2.0) 06/14/17 09:30 Ur Leukocyte Esterase Negative (Negative) 06/14/17 09:30 Urine RBC 7 /hpf (0-5) H 06/14/17 09:30 Urine WBC 4 /hpf (0-5) 06/14/17 09:30 Ur Squamous Epith Cells <1 /hpf (0-4) 06/14/17 09:30 Hyaline Casts 3 /lpf (0-2) H 06/14/17 09:30 Urine Mucus Rare /hpf (None) H 06/14/17 09:30 Vancomycin Trough <5.0 ug/mL 06/16/17 05:45 Urine Legionella Ag Not detected (Not detected) 06/14/17 09:30 Mycoplasma pneumon IgM 0.07 INDEX (<=0.90) 06/13/17 10:53 Microbiology 06/13/17 10:53 Blood Blood Culture - Preliminary No Growth after 96 hours 06/14/17 11:15 Sputum Gram Stain - Final 06/14/17 11:15 Sputum Sputum Culture - Final Ayana albicans Yeast species 06/14/17 09:30 Urine,Catheterized Urine Culture - Final Assessment and Plan (1) COPD (chronic obstructive pulmonary disease) Status: Acute (2) Acute respiratory failure Narrative/Plan: 61 year old woman who presents to the emergency center with progressive shortness of breath. Upon presentation she was having difficulties with an exacerbation of her COPD. Despite treatments she required BiPAP therapy for respiratory support. She did not improve significantly and earlier today she developed respiratory failure requiring intubation with sedation and mechanical ventilation. At the time of intubation there was a copious amount of material that was found. This is been sent for culture. She treated with levofloxacin for the exacerbation of her COPD as well as significant supportive measures such as the intubation, and steroid therapy. She is not hypotensive. She has good urinary output. She is tolerating sedation well and is interacting. Consider further help direct her antibiotic therapy. 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 At this time no evidence of any sepsis from her TPN catheter but cultures are pending. As noted sputum is in process and receiving antibiotic therapy. A long discussion occurs with the family about her overall care. She does have advanced lung disease. Over the next couple days her status will help him determine the best possible plan if she is not able to be weaned from the ventilator. They do not believe that she would want to have tracheostomy and long-term vent facility placement. We discuss that this is a reasonable and compassionate decision. Cultures are process most recent cultures have had pseudomonas and Enterobacter. We'll not add vancomycin at this time. Status: Acute
[2017-06-18] LABS: Glucose,Whole Blood 196 mg/dL (75-99)
[2017-06-18] MEDS: methylPREDNISolone SOD SUCCI 125 MG/2 ML VIAL IV SCH ×4 (00:04→18:16)
[2017-06-18] MEDS: INSULIN LISPRO (humaLOG) 300 UNIT/3 ML VIAL SQ SCH ×4 (00:05→18:12)
[2017-06-18] MEDS: LORazepam 2 MG/ML INJ IV PRN ×4 (01:09→22:55)
[2017-06-18] MEDS: [UNRECOGNIZED DRUG - REMARK] IV SCH ×14 (01:52→13:06)
[2017-06-18] MEDS: ACETAMINOPHEN IV (For NPO) 1,000 MG in EMPTY BAG 1 BAG IVPB PRN ×2 (02:10→19:19)
[2017-06-18] MEDS: LEVALBUTEROL NEB 1.25 MG/3 ML AMP INHALATION PRN (03:07)
[2017-06-18] MEDS: HYDROmorphone 1 MG/ML 1 ML SYRINGE IVP PRN ×4 (04:00→22:49)
[2017-06-18] MEDS: PROPOFOL 1,000 MG/100 ML VIAL IV SCH ×3 (04:13→21:00)
[2017-06-18 04:26] LABS: ABG Base Excess -2.5 mmol/L; ABG HCO3 24 mmol/L (21-25); ABG PCO2 59 mmHg (35-45); ABG PH 7.23 (7.35-7.45); ABG PO2 74 mmHg (83-108); ABG TCO2 26 mmol/L (19-24)
[2017-06-18 04:54] LABS: Basophils % (A) 0 %; CH 31.5; CHCM 31.3; Eosinophils % (A) 0 %; HCT 35.2 % (34.0-46.0); HDW 3.09; HGB 10.8 gm/dL (11.4-16.0); Hypochromasia Slight; Luc # (Auto) 0.17; Luc % (Auto) 3; Lymphocytes # (A) 0.4 k/uL (1.0-4.8); Lymphocytes % (A) 6 %; MCHC 30.6 g/dL (31.0-37.0); MCV 101.5 fL (80.0-100.0); Macrocytosis Slight; Mean Platelet Volume 7.5; Monocytes # (A) 0.1 k/uL (0-1.0); Monocytes % (A) 2 %; Neutrophils % (A) 90 %; RBC 3.47 m/uL (3.80-5.40); RDW 14.9 % (11.5-15.5); WBC 6.7 k/uL (3.8-10.6); WBC (Perox) 6.94
[2017-06-18 05:03] LABS: Ionized Calcium 5.7 mg/dL (4.5-5.3)
[2017-06-18 05:12] LABS: Anion Gap 2 mmol/L; Blood Urea Nitrogen 21 mg/dL (7-17); Calcium 8.3 mg/dL (8.4-10.2); Carbon Dioxide 25 mmol/L (22-30); Chloride 111 mmol/L (98-107); Glucose 131 mg/dL (74-99); Magnesium 2.3 mg/dL (1.6-2.3); Non-African American GFR(MDRD) >60 (>60 ml/min/1.73 sqM); Phosphorus 1.9 mg/dL (2.5-4.5); Potassium 4.3 mmol/L (3.5-5.1); Sodium 138 mmol/L (137-145)
[2017-06-18 06:06] LABS: Glucose,Whole Blood 117 mg/dL (75-99)
[2017-06-18] MEDS: SODIUM CHLORIDE 0.9% 1,000 ML IV SCH (07:01)
[2017-06-18] MEDS: IPRATROPIUM 0.5 MG/2.5 ML NEBU INHALATION SCH ×4 (07:15→19:16)
[2017-06-18] MEDS: BUDESONIDE 1 MG/2 ML NEBU INHALATION SCH ×2 (07:15→19:16)
[2017-06-18] MEDS: LEVALBUTEROL NEB 1.25 MG/3 ML AMP INHALATION SCH ×4 (07:15→19:16)
--- NOTE | 2017-06-18 07:58 | XR ---
EXAMINATION TYPE: XR chest 1V portable DATE OF EXAM: 06/18/2017 COMPARISON: 06/17/2017 HISTORY: Shortness of breath TECHNIQUE: Single frontal view of the chest is obtained. FINDINGS: Hyperinflation lungs noted. ET, NG tube, and right-sided central line stable. Pleural-parenchymal changes greater on the left are stable with bilateral areas of consolidation pleu ral effusion. Nodular density in the right midlung stable. IMPRESSION: 1. Persistent stable multifocal airspace disease with small pleural effusion. 2. Stable nodular density within the chest is unchanged from previous exam.
[2017-06-18] MEDS: CEFEPIME 2 GM in SODIUM CHLORIDE 0.9% 50 ML IVPB SCH ×2 (09:02→22:00)
[2017-06-18] MEDS: ENOXAPARIN 40 MG/0.4 ML SYRINGE SQ SCH (09:09)
[2017-06-18] MEDS: DULoxetine HCL 60 MG CAPSULE.DR PO SCH (09:10)
[2017-06-18] MEDS: METOPROLOL TARTRATE 25 MG TAB PO SCH ×2 (09:11→23:01)
[2017-06-18] MEDS: ASPIRIN 81 MG PO SCH (09:12)
[2017-06-18] MEDS: PANTOPRAZOLE 40 MG/10 ML VIAL IV SCH (09:38)
[2017-06-18] MEDS: LEVOTHYROXINE IVP 100 MCG/5 ML VIAL IV SCH (09:39)
[2017-06-18] MEDS: CHLORHEXIDINE GLUCONATE 15 ML CUP MUCOUS MEM SCH ×2 (10:30→23:02)
--- NOTE | 2017-06-18 11:01 | P.PN ---
Subjective This is a 61-year-old female well-known to me. The patient has a history of very severe COPD. She's asked to stage IV disease. She was admitted on June 13. She was intubated on June 14 for respiratory failure. I ended up but talking to the daughter. I must go to talk to the . The patient never really wanted to be on life support. They're thinking about withdrawing life support on her. She has a history of hypercapnic and hypoxemic respiratory failure. Other diagnoses include hyponatremia electrolyte disturbance small troponin leak malabsorption syndrome multiple previous pneumonias including Klebsiella MRSA Pseudomonas stenotrophomonas and other bacteria remote history of chronic tobacco use hypothyroidism osteoarthritis in general medical debility with malnutrition. The patient's doing poorly. The patient will probably need a tracheostomy and a feeding tube if they're to continue life support. Again I will speak to the Chris the [place]. I did speak to the daughter. The patient's currently on the assist control mode rate of 24 to be increased to 30 tidal volume 450 FiO2 45% PEEP of 5. We'll drop the time of I'm down from 450-350 the patient's blood gases show a PaO2 of 69 and pCO2 45 and a pH of 7.30. The patient is receiving a saline IV at 50 mL an hour TPN at 30 mL an hour the propofol which is currently off and norepinephrine which is currently off. The patient's chest x-ray shows significant left basilar airspace disease. The patient is seen again today 06/18/2017 in follow-up in the intensive care unit. She remains intubated on the mechanical ventilator. Current settings are assist control of 30, tidal volume 350, FiO2 45%, PEEP of 5. Current ABGs reveal a P O2 and 74, pCO2 59 and a pH of 7.23. Her current drips include TPN at 30 MLS per hour. Propofol at 45 mcg/kg/m. She is being nourished with Jevity 1.2 at 10 mL per hour. Today's chest x-ray shows persistent stable multifocal airspace disease left greater than right. Nodular density in the right midlung is stable. Sputum cultures positive for Ayana. Blood cultures reveal no growth to date. Urine culture reveals no growth. No leukocytosis. Hemoglobin 10.8. Hemodynamically stable. Afebrile. Objective - Vital Signs Vital signs: Vital Signs Temp 98.0 F 06/18/17 08:00 Pulse 103 H 06/18/17 08:00 Resp 30 H 06/18/17 08:00 BP 106/54 06/16/17 13:00 Pulse Ox 97 06/18/17 08:00 Intake & Output 06/17/17 06/18/17 06/18/17 18:59 06:59 18:59 Intake Total 4341.190 9015.901 90 Output Total 950 960 120 Balance 561.509 668.901 -30 Weight 53 kg 57.2 kg Intake: IV 1146 1229 80 ACETAMINOPHEN IV (For NPO 100 ) 1,000 mg In Empty Bag 1 bag @ 400 mls/hr IVPB Q6HR [facility] Rx#:[id number] Cefepime 2 gm In Sodium 50 50 Chloride 0.9% 50 ml @ 100 mls/hr IVPB Q12HR [facility] Rx #:[id number] Levofloxacin 750Mg-D5w 100 Pmx 750 mg In Dextrose/ Water 1 150ml.bag @ 100 mls/hr IVPB Q24H [facility] Rx#: [id number] Normal Saline 600 650 50 Pressure Bag 36 39 TPN 360 390 30 Intake, IV Titration 95.509 179.901 Amount Norepinephrin 16 mg-0.9% 7.735 Ns Pmx 16 mg In 250 ml @ Titrate IV .Q0M [facility] Rx#: [id number] Propofol 1,000 mg In 100 87.774 179.901 ml @ Titrate IV .Q0M [facility] Rx#:[id number] Tube Feeding 150 130 10 Other 120 90 Output: Urine 950 960 120 Other: Voiding Method Indwelling Catheter Indwelling Catheter Indwelling Catheter ABP, PAP, CO, CI - Last Documented Arterial Blood Pressure 131/60 - Exam Sedated. The patient's current orally placed endotracheal tube. HEENT examination is grossly unremarkable. Mucous membranes are moist. No oral lesions. Neck supple. Full range of motion. No adenopathy or thyromegaly. Cardiovascular examination reveals regular rhythm rate. S1-S2 normal. No S3- S4 or murmur. Lungs reveal coarse rhonchi. Breath sounds are diminished. Breath sounds are equal. No crackles. Abdomen soft. Extremities are intact. No cyanosis clubbing or edema. Skin is without rash. Neurologic examination cannot be performed. - Labs CBC & Chem 7: 06/18/17 04:00 06/18/17 04:00 Labs: Abnormal Lab Results - Last 24 Hours (Table) 06/17/17 06/17/17 06/17/17 Range/Units 11:58 12:01 17:16 RBC (3.80-5.40) m/uL Hgb (11.4-16.0) gm/dL MCV (80.0-100.0) fL MCHC (31.0-37.0) g/dL Lymphocytes # (1.0-4.8) k/uL ABG pH (7.35-7.45) ABG pCO2 (35-45) mmHg ABG pO2 (83-108) mmHg ABG Total CO2 (19-24) mmol/L ABG O2 Saturation (94-97) % Chloride (98-107) mmol/L BUN (7-17) mg/dL Creatinine (0.52-1.04) mg/dL Glucose (74-99) mg/dL POC Glucose (mg/dL) 177 H 191 H 183 H (75-99) mg/dL Calcium (8.4-10.2) mg/dL Ionized Calcium Farhad (4.5-5.3) mg/dL Phosphorus (2.5-4.5) mg/dL 06/17/17 06/18/17 06/18/17 Range/Units 23:58 04:00 04:00 RBC 3.47 L (3.80-5.40) m/uL Hgb 10.8 L (11.4-16.0) gm/dL MCV 101.5 H (80.0-100.0) fL MCHC 30.6 L (31.0-37.0) g/dL Lymphocytes # 0.4 L (1.0-4.8) k/uL ABG pH (7.35-7.45) ABG pCO2 (35-45) mmHg ABG pO2 (83-108) mmHg ABG Total CO2 (19-24) mmol/L ABG O2 Saturation (94-97) % Chloride 111 H (98-107) mmol/L BUN 21 H (7-17) mg/dL Creatinine 0.50 L (0.52-1.04) mg/dL Glucose 131 H (74-99) mg/dL POC Glucose (mg/dL) 196 H (75-99) mg/dL Calcium 8.3 L (8.4-10.2) mg/dL Ionized Calcium Farhad 5.7 H (4.5-5.3) mg/dL Phosphorus 1.9 L (2.5-4.5) mg/dL 06/18/17 06/18/17 Range/Units 04:18 06:04 RBC (3.80-5.40) m/uL Hgb (11.4-16.0) gm/dL MCV (80.0-100.0) fL MCHC (31.0-37.0) g/dL Lymphocytes # (1.0-4.8) k/uL ABG pH 7.23 L (7.35-7.45) ABG pCO2 59 H (35-45) mmHg ABG pO2 74 L (83-108) mmHg ABG Total CO2 26 H (19-24) mmol/L ABG O2 Saturation 91.0 L (94-97) % Chloride (98-107) mmol/L BUN (7-17) mg/dL Creatinine (0.52-1.04) mg/dL Glucose (74-99) mg/dL POC Glucose (mg/dL) 117 H (75-99) mg/dL Calcium (8.4-10.2) mg/dL Ionized Calcium Farhad (4.5-5.3) mg/dL Phosphorus (2.5-4.5) mg/dL Microbiology - Last 24 Hours (Table) 06/13/17 10:53 Blood Culture - Preliminary Blood No Growth after 96 hours Assessment and Plan Plan: Impression: #1 Acute hypoxic respiratory failure requiring intubation and mechanical ventilatory support. Secondary to an acute exacerbation of severe Gold stage III chronic obstructive pulmonary disease. Right upper lobe vague infiltrate is chronic in nature along with a left apical region as compared to previous x- rays. #2 Hyponatremia, recovered, current sodium 138. #3 Hypokalemia, recovered, current potassium 4.3. #4 Small troponin leak. #5 Malabsorption syndrome, receiving TPN in the outpatient setting, secondary to total gastrectomy/esophagectomy with pull-through. #6 Multiple previous pneumonias secondary to Pseudomonas, MRSA, Klebsiella and stenotrophomonas. Currently maintained on Bactrim in the outpatient setting. #7 Remote history of chronic tobacco use. #8 Hypothyroidism. #9 Osteoarthritis. #10 Poor overall functional performance based on the above-mentioned multiple comorbidities. Plan: The patient was seen and evaluated by Dr. Rader. Her chest x-ray and labs were reviewed. He did have a lengthy discussion with the patient's who is at the bedside. The plan is for withdrawal of life support sometime tomorrow once the family members have gathered. In the interim, we'll continue with full supportive care. She does remain at DO NOT RESUSCITATE CODE STATUS. We' ll continue to follow. Critical care time 36 minutes.
--- NOTE | 2017-06-18 12:01 | P.PN ---
Subjective This is a 61-year-old pleasant female patient of Dr. Javier Ledesma and Dr. Rader with known history of COPD, CVA, fibromyalgia, GERD, GI bleed, pneumonia and a previous line infections treated by Dr. Cruz last 09/14/2015, she was septic at that time required IV antibiotics with sepsis from her right chest wall cellulitis. Her last admission was September 2016 for left-sided pneumonia with sepsis, possible gram-negative pneumonia possible septic shock, no sputum cultures isolated during that last admission. Patient is known to have history of malabsorption she had partial gastrectomy followed by total gastrectomy with esophagectomy secondary to peptic ulcer disease and has been on TPN via port in the right side of her chest wall for the last few years had multiple complication previously but was hospitalized last time over a year ago.. She also has history of MRSA last one was 3 years ago arising from the neck abscess Patient presented to the emergency department at [facility] with severe shortness of breath, cough or 4 day duration, patient was started on Bactrim by Dr. Cruz, no prednisone from pulmonary service or PCP, patient did not get any better was subsequently admitted to the emergency room secondary to severe COPD exacerbation and right-sided pneumonia based on chest x-ray. Patient had fever and chills, fatigue and back pain near the right scapula In the emergency room COPD changes were noted and chest x-ray, with micronodular pattern, hiatal hernia with prominent lucency in the upper mediastinum stable with back 2012, a vague infiltrate right upper lobe, upon arrival to emergency room, patient was wheezing with severe hypoxemic dyspnea tachypneic., patient required BiPAP, treatments, patient is a full code and agrees to intubation if necessary 06/14: Patient required mechanical ventilation early this morning at around 7:30, and intubated by Dr. Miranda, patient was tachypneic and fatiguing with the BiPAP treatment, she also was hypoxemic despite BiPAP, she was severely acidotic based on ABG the pH of 7.04 pCO2 of 94, OG tube to be placed later today patient is sedated on a vent 06/15: Patient remains in ICU, mechanical ventilated and not requiring any pressors patient spiking some temperatures, blood cultures are pending, vancomycin added to current regimen of Levaquin and cefepime with prior history of MRSA Dr. Cruz following. TPN infusing as previous from home 06/16: Patient still mechanically vented sedated, worsening pneumonia noted on chest x-ray, patient still febrile, patient currently is on Levophed 6 mics adjustments antibiotic maintained on Levaquin and cefepime multiple specialists on the case Dr. Narayan Cruz 06/17: Patient was seen and evaluated today, no change in patients condition. She still remains in the ICU, mechanical ventilated. Repeat chest x-ray showed persistent unchanged multifocal left lung opacities. She continues received cefepime and levofloxacin for her pneumonia. Pulmonary is on consult, the chances of weaning and extubation off the ventilator are poor, prognosis is poor. Comfort care will be discussed with the family. 06/18: The patient was seen and evaluated today, there has been no change in the patient's current condition. Sputum cultures positive for Ayana, blood cultures reveal no growth to date. Urine cultures revealed no growth. The family wishes are for withdrawal of life support, possibly sometime tomorrow once the family members have gathered, she is currently supportive care and remains a DO NOT RESUSCITATE status. Will continue to keep patient comfortable at this time. Objective - Vital Signs Vital signs: Vital Signs Temp 98.0 F 06/18/17 08:00 Pulse 103 H 06/18/17 08:00 Resp 30 H 06/18/17 08:00 BP 106/54 06/16/17 13:00 Pulse Ox 97 06/18/17 08:00 Intake & Output 06/17/17 06/18/17 06/18/17 18:59 06:59 18:59 Intake Total 4250.492 8636.901 90 Output Total 950 960 120 Balance 561.509 668.901 -30 Weight 53 kg 57.2 kg Intake: IV 1146 1229 80 ACETAMINOPHEN IV (For NPO 100 ) 1,000 mg In Empty Bag 1 bag @ 400 mls/hr IVPB Q6HR PRN Rx#:[id number] Cefepime 2 gm In Sodium 50 50 Chloride 0.9% 50 ml @ 100 mls/hr IVPB Q12HR [facility] Rx #:[id number] Levofloxacin 750Mg-D5w 100 Pmx 750 mg In Dextrose/ Water 1 150ml.bag @ 100 mls/hr IVPB Q24H [facility] Rx#: [id number] Normal Saline 600 650 50 Pressure Bag 36 39 TPN 360 390 30 Intake, IV Titration 95.509 179.901 Amount Norepinephrin 16 mg-0.9% 7.735 Ns Pmx 16 mg In 250 ml @ Titrate IV .Q0M [facility] Rx#: [id number] Propofol 1,000 mg In 100 87.774 179.901 ml @ Titrate IV .Q0M [facility] Rx#:[id number] Tube Feeding 150 130 10 Other 120 90 Output: Urine 950 960 120 Other: Voiding Method Indwelling Catheter Indwelling Catheter Indwelling Catheter ABP, PAP, CO, CI - Last Documented Arterial Blood Pressure 131/60 - Exam - Constitutional General appearance: Present: no acute distress - EENT Eyes: Present: anicteric sclerae, EOMI, PERRLA - Neck Neck: Absent: lymphadenopathy, normal ROM, other, rigidity, stridor, thyromegaly - Respiratory Respiratory: bilateral: diminished, rales, rhonchi - Cardiovascular Rhythm: regular Heart sounds: normal: S1, S2 Abnormal Heart Sounds: Absent: systolic murmur, diastolic murmur, rub, S3 Gallop , S4 Gallop, click, other - Gastrointestinal General gastrointestinal: Present: normal bowel sounds, soft - Integumentary Integumentary: Present: normal - Psychiatric Psychiatric: Present: appropriate affect - Additional findings Additional findings: Patient sedated vented in machine - Labs CBC & Chem 7: 06/18/17 04:00 06/18/17 04:00 Labs: Abnormal Lab Results - Last 24 Hours (Table) 06/17/17 06/17/17 06/17/17 Range/Units 11:58 12:01 17:16 RBC (3.80-5.40) m/uL Hgb (11.4-16.0) gm/dL MCV (80.0-100.0) fL MCHC (31.0-37.0) g/dL Lymphocytes # (1.0-4.8) k/uL ABG pH (7.35-7.45) ABG pCO2 (35-45) mmHg ABG pO2 (83-108) mmHg ABG Total CO2 (19-24) mmol/L ABG O2 Saturation (94-97) % Chloride (98-107) mmol/L BUN (7-17) mg/dL Creatinine (0.52-1.04) mg/dL Glucose (74-99) mg/dL POC Glucose (mg/dL) 177 H 191 H 183 H (75-99) mg/dL Calcium (8.4-10.2) mg/dL Ionized Calcium Farhad (4.5-5.3) mg/dL Phosphorus (2.5-4.5) mg/dL 06/17/17 06/18/17 06/18/17 Range/Units 23:58 04:00 04:00 RBC 3.47 L (3.80-5.40) m/uL Hgb 10.8 L (11.4-16.0) gm/dL MCV 101.5 H (80.0-100.0) fL MCHC 30.6 L (31.0-37.0) g/dL Lymphocytes # 0.4 L (1.0-4.8) k/uL ABG pH (7.35-7.45) ABG pCO2 (35-45) mmHg ABG pO2 (83-108) mmHg ABG Total CO2 (19-24) mmol/L ABG O2 Saturation (94-97) % Chloride 111 H (98-107) mmol/L BUN 21 H (7-17) mg/dL Creatinine 0.50 L (0.52-1.04) mg/dL Glucose 131 H (74-99) mg/dL POC Glucose (mg/dL) 196 H (75-99) mg/dL Calcium 8.3 L (8.4-10.2) mg/dL Ionized Calcium Farhad 5.7 H (4.5-5.3) mg/dL Phosphorus 1.9 L (2.5-4.5) mg/dL 06/18/17 06/18/17 Range/Units 04:18 06:04 RBC (3.80-5.40) m/uL Hgb (11.4-16.0) gm/dL MCV (80.0-100.0) fL MCHC (31.0-37.0) g/dL Lymphocytes # (1.0-4.8) k/uL ABG pH 7.23 L (7.35-7.45) ABG pCO2 59 H (35-45) mmHg ABG pO2 74 L (83-108) mmHg ABG Total CO2 26 H (19-24) mmol/L ABG O2 Saturation 91.0 L (94-97) % Chloride (98-107) mmol/L BUN (7-17) mg/dL Creatinine (0.52-1.04) mg/dL Glucose (74-99) mg/dL POC Glucose (mg/dL) 117 H (75-99) mg/dL Calcium (8.4-10.2) mg/dL Ionized Calcium Farhad (4.5-5.3) mg/dL Phosphorus (2.5-4.5) mg/dL Microbiology - Last 24 Hours (Table) 06/13/17 10:53 Blood Culture - Preliminary Blood No Growth after 96 hours Assessment and Plan Plan: 1. Severe hypoxemic acute on chronic respiratory failure with chronic hypoxemia secondary to severe COPD exacerbation, sepsis. Patient is currently on mechanical ventilation. Treatments with nebulized Xopenex, budesonide and IV Solu-Medrol. 2. Acute respiratory failure requiring mechanical ventilation on 06/14/2017. Critical care pulmonary physician Dr. Miranda managing vent, OG tube to be placed with transitioning of her medications, oral feedings OG tube. 3. Right sided pneumonia, sepsis with septic shock. Patient will be on IV antibiotics for now, critical care and pulmonary on consult. Patient has multiple drug ALLERGIES, and would be started on cefepime, and Levaquin with known history of pseudomonas infection in the past. Sputum cultures obtained show Ayana albicans. Consult with Dr. Cruz who knows her well for streamlining of antibiotics. Patient failed oral Bactrim prior to admission. Mycoplasma antibody negative 4. Chronic hypoxemic respiratory failure. On mechanical ventilation, with possible withdrawal from life support sometime tomorrow. 5. Chemistry abnormalities with hyponatremia, most likely secondary to severe pneumonia hyperkalemia, elevated mild AST and alkaline phosphatase, hypokalemia , chemistries will be followed closely 6. Hypothyroidism. Continue levothyroxine at 50 g daily. 7. History of anxiety and panic attack. We'll provide Ativan 1 mg 2 times a day when necessary 8. History of neuropathy and fibromyalgia. Continue Cymbalta 9. Chronic depression and depressive disorders. Continue patient on Cymbalta 90 mg daily. 10. Arrhythmia. Patient has been on metoprolol 25 g twice a day. 11. Osteoporosis. Patient has been on Miacalcin along with calcium and vitamin D. 12 Severe malabsorption and malnutrition: Has been on TPN via port in the past and has been on maintenance infusions at home, TPN currently is infusing through [employer] right side GI prophylaxis: Patient will be on Protonix 40 mg IV daily DVT prophylaxis: Patient will have knee-high BARBARA hose and Venodyne boots. The above impression and plan of care have been discussed and directed by signing physician. Karis Gil nurse practitioner acting as scribe for signing physician.
[2017-06-18] MEDS: LEVOFLOXACIN 750MG-D5W PMX 750 MG in DEXTROSE/WATER 1 150ML.BAG IVPB SCH (12:30)
[2017-06-18] MEDS: MAGNESIUM OXIDE 400 MG TAB PO SCH (13:00)
[2017-06-18] MEDS: CHOLECALCIFEROL 1,000 UNIT TAB PO SCH (13:00)
[2017-06-18] MEDS: FOLIC ACID 1 MG TAB PO SCH (13:15)
[2017-06-18 15:54] LABS: Glucose,Whole Blood 198 mg/dL (75-99)
[2017-06-18 18:01] LABS: Glucose,Whole Blood 170 mg/dL (75-99)
[2017-06-18] MEDS: DILTIAZEM 125 MG in SODIUM CHLORIDE 0.9% 100 ML IV SCH (19:50)
--- NOTE | 2017-06-18 21:12 | P.PN ---
Subjective Principal diagnosis: Respiratory failure 61-year-old female presents to the emergency center complaining of significant shortness of breath. She is well-known to the pulmonology group as well as infectious disease regarding her many pulmonary infections and bouts of sepsis in the past. She has advanced pulmonary disease with Gold stage III lung disease. She often utilizes oxygen and has been on steroids intermittently. At the time of presentation a is a center she was profoundly short of breath. She required initiation of BiPAP to maintain her respiratory status. Her respiratory status deteriorated and she required intubation with mechanical ventilation earlier today and she was moved to intensive care unit for ongoing care. She is not having Laura and hypotension but has ongoing respiratory failure. Nursing staff relates the time of intubation a gross amount of grossly purulent secretions were obtained from the endotracheal tube. Since she has had some significant improvement of her pulmonary status and her oxygenation. She has a history of multiple infections including Pseudomonas aeruginosa. She has had port infection last one is for more a year ago. At this time as noted she is intubated sedated and mechanically ventilated. She is comfortable. The nursing staff relates to no other acute concerns and has been improvement of her ventilation. The patient's and daughter and family are presentagain today Extensive discussion ensues about her current intubation status. She does have advanced COPD. The concern would be that she will fail weaning If she fails weaning she within need to have a tracheostomy and plans for long-term vent treatment. Additionally to that she's had no significant improvement and mild decline in her pulmonary status in the last day. Objective - Vital Signs Vital signs: Vital Signs Temp 98.6 F 06/18/17 18:00 Pulse 123 H 06/18/17 19:33 Resp 30 H 06/18/17 19:00 BP 106/54 06/16/17 13:00 Pulse Ox 94 L 06/18/17 19:00 Intake & Output 06/18/17 06/18/17 06/19/17 06:59 18:59 06:59 Intake Total 6341.707 0567 Output Total 960 1005 Balance 668.901 375 Weight 57.2 kg Intake: IV 1229 1160 ACETAMINOPHEN IV (For NPO 100 ) 1,000 mg In Empty Bag 1 bag @ 400 mls/hr IVPB Q6HR PRN Rx#:[id number] Cefepime 2 gm In Sodium 50 50 Chloride 0.9% 50 ml @ 100 mls/hr IVPB Q12HR [facility] Rx #:[id number] Levofloxacin 750Mg-D5w 150 Pmx 750 mg In Dextrose/ Water 1 150ml.bag @ 100 mls/hr IVPB Q24H [facility] Rx#: [id number] Normal Saline 650 600 Pressure Bag 39 TPN 390 360 Intake, IV Titration 179.901 100 Amount Propofol 1,000 mg In 100 179.901 100 ml @ Titrate IV .Q0M [facility] Rx#:[id number] Tube Feeding 130 120 Other 90 Output: Urine 960 1005 Other: Voiding Method Indwelling Catheter Indwelling Catheter ABP, PAP, CO, CI - Last Documented Arterial Blood Pressure 150/81 - Exam 61-year-old female who was admitted very thin but not cachectic build. She is intubated sedated and mechanically ventilated. HEENT: Anicteric conjunctiva are pink and moist nasal mucosa grossly intact without significant lesions, there is no thrush. No lesions noted around the endotracheal tube Neck: The neck is supple without significant lymphadenopathy or thyromegaly. Lungs: There is symmetrical air entry. There are coarse crackles and wheezes scattered throughout the lung jeter.) Considerably better than prior. Minimal dullness is noted to the bilateral bases. Heart: Regular rate and rhythm with an audible S1-S2, no S3 no S4. There is no significant murmur click or rub, PMI was nondisplaced. Abdomen: Positive bowel sounds soft and nontender without palpable masses or organomegaly. There was no guarding or rebound. Extremities: The upper extremities have excellent pulses they are symmetric, no significant petechiae or telangiectasia. No splinter hemorrhages were noted. The lower extremities are free from significant edema. The peripheral pulses were 2+ and symmetric. Neuro: Sedated - Labs CBC & Chem 7: 06/18/17 04:00 06/18/17 04:00 Labs: Abnormal Lab Results - Last 24 Hours (Table) 06/17/17 06/18/17 06/18/17 Range/Units 23:58 04:00 04:00 RBC 3.47 L (3.80-5.40) m/uL Hgb 10.8 L (11.4-16.0) gm/dL MCV 101.5 H (80.0-100.0) fL MCHC 30.6 L (31.0-37.0) g/dL Lymphocytes # 0.4 L (1.0-4.8) k/uL ABG pH (7.35-7.45) ABG pCO2 (35-45) mmHg ABG pO2 (83-108) mmHg ABG Total CO2 (19-24) mmol/L ABG O2 Saturation (94-97) % Chloride 111 H (98-107) mmol/L BUN 21 H (7-17) mg/dL Creatinine 0.50 L (0.52-1.04) mg/dL Glucose 131 H (74-99) mg/dL POC Glucose (mg/dL) 196 H (75-99) mg/dL Calcium 8.3 L (8.4-10.2) mg/dL Ionized Calcium Farhad 5.7 H (4.5-5.3) mg/dL Phosphorus 1.9 L (2.5-4.5) mg/dL 06/18/17 06/18/17 06/18/17 Range/Units 04:18 06:04 12:06 RBC (3.80-5.40) m/uL Hgb (11.4-16.0) gm/dL MCV (80.0-100.0) fL MCHC (31.0-37.0) g/dL Lymphocytes # (1.0-4.8) k/uL ABG pH 7.23 L (7.35-7.45) ABG pCO2 59 H (35-45) mmHg ABG pO2 74 L (83-108) mmHg ABG Total CO2 26 H (19-24) mmol/L ABG O2 Saturation 91.0 L (94-97) % Chloride (98-107) mmol/L BUN (7-17) mg/dL Creatinine (0.52-1.04) mg/dL Glucose (74-99) mg/dL POC Glucose (mg/dL) 117 H 198 H (75-99) mg/dL Calcium (8.4-10.2) mg/dL Ionized Calcium Farhad (4.5-5.3) mg/dL Phosphorus (2.5-4.5) mg/dL 06/18/17 Range/Units 18:00 RBC (3.80-5.40) m/uL Hgb (11.4-16.0) gm/dL MCV (80.0-100.0) fL MCHC (31.0-37.0) g/dL Lymphocytes # (1.0-4.8) k/uL ABG pH (7.35-7.45) ABG pCO2 (35-45) mmHg ABG pO2 (83-108) mmHg ABG Total CO2 (19-24) mmol/L ABG O2 Saturation (94-97) % Chloride (98-107) mmol/L BUN (7-17) mg/dL Creatinine (0.52-1.04) mg/dL Glucose (74-99) mg/dL POC Glucose (mg/dL) 170 H (75-99) mg/dL Calcium (8.4-10.2) mg/dL Ionized Calcium Farhad (4.5-5.3) mg/dL Phosphorus (2.5-4.5) mg/dL Microbiology - Last 24 Hours (Table) 06/13/17 10:53 Blood Culture - Preliminary Blood No Growth after 120 hours Laboratory Results WBC 6.7 k/uL (3.8-10.6) 06/18/17 04:00 RBC 3.47 m/uL (3.80-5.40) L 06/18/17 04:00 Hgb 10.8 gm/dL (11.4-16.0) L 06/18/17 04:00 Hct 35.2 % (34.0-46.0) 06/18/17 04:00 MCV 101.5 fL (80.0-100.0) H 06/18/17 04:00 MCH 31.0 pg (25.0-35.0) 06/18/17 04:00 MCHC 30.6 g/dL (31.0-37.0) L 06/18/17 04:00 RDW 14.9 % (11.5-15.5) 06/18/17 04:00 Plt Count 210 k/uL (150-450) 06/18/17 04:00 Neutrophils % 90 % 06/18/17 04:00 Lymphocytes % 6 % 06/18/17 04:00 Monocytes % 2 % 06/18/17 04:00 Eosinophils % 0 % 06/18/17 04:00 Basophils % 0 % 06/18/17 04:00 Neutrophils # 6.0 k/uL (1.3-7.7) 06/18/17 04:00 Lymphocytes # 0.4 k/uL (1.0-4.8) L 06/18/17 04:00 Monocytes # 0.1 k/uL (0-1.0) 06/18/17 04:00 Eosinophils # 0.0 k/uL (0-0.7) 06/18/17 04:00 Basophils # 0.0 k/uL (0-0.2) 06/18/17 04:00 Hypochromasia Slight 06/18/17 04:00 Macrocytosis Slight 06/18/17 04:00 PT 10.2 sec (9.0-12.0) 06/15/17 23:40 INR 1.0 (<1.2) 06/15/17 23:40 APTT 35.6 sec (22.0-30.0) H 06/15/17 23:40 Sample Site [place] 06/18/17 04:18 ABG pH 7.23 (7.35-7.45) L 06/18/17 04:18 ABG pCO2 59 mmHg (35-45) H 06/18/17 04:18 ABG pO2 74 mmHg (83-108) L 06/18/17 04:18 ABG HCO3 24 mmol/L (21-25) 06/18/17 04:18 ABG Total CO2 26 mmol/L (19-24) H 06/18/17 04:18 ABG O2 Saturation 91.0 % (94-97) L 06/18/17 04:18 ABG Base Excess -2.5 mmol/L 06/18/17 04:18 FiO2 45 % 06/18/17 04:18 Sodium 138 mmol/L (137-145) 06/18/17 04:00 Potassium 4.3 mmol/L (3.5-5.1) 06/18/17 04:00 Chloride 111 mmol/L (98-107) H 06/18/17 04:00 Carbon Dioxide 25 mmol/L (22-30) 06/18/17 04:00 Anion Gap 2 mmol/L 06/18/17 04:00 BUN 21 mg/dL (7-17) H 06/18/17 04:00 Creatinine 0.50 mg/dL (0.52-1.04) L 06/18/17 04:00 Est GFR (MDRD) Af Amer >60 (>60 ml/min/1.73 sqM) 06/18/17 04:00 Est GFR (MDRD) Non-Af >60 (>60 ml/min/1.73 sqM) 06/18/17 04:00 Glucose 131 mg/dL (74-99) H 06/18/17 04:00 POC Glucose (mg/dL) 170 mg/dL (75-99) H 06/18/17 18:00 POC Glu Termite Technician ID Vicente Quintanilla 06/18/17 18:[address] Glu mg/dL 126 mg/dL 06/15/17 04:02 Hemoglobin A1c 6.0 % (4.2-6.1) 06/15/17 04:02 Plasma Lactic Acid [place] 1.2 mmol/L (0.7-2.0) 06/15/17 06:14 Calcium 8.3 mg/dL (8.4-10.2) L 06/18/17 04:00 Ionized Calcium Farhad 5.7 mg/dL (4.5-5.3) H 06/18/17 04:00 Phosphorus 1.9 mg/dL (2.5-4.5) L 06/18/17 04:00 Magnesium 2.3 mg/dL (1.6-2.3) 06/18/17 04:00 Total Bilirubin 0.4 mg/dL (0.2-1.3) 06/13/17 10:53 AST 51 U/L (14-36) H 06/13/17 10:53 ALT 39 U/L (9-52) 06/13/17 10:53 Alkaline Phosphatase 132 U/L (38-126) H 06/13/17 10:53 Total Creatine Kinase 69 U/L (30-135) 06/13/17 10:53 CK-MB (CK-2) 2.0 ng/mL (0.0-2.4) 06/13/17 10:53 CK-MB (CK-2) Rel Index 2.9 06/13/17 10:53 Troponin I 0.135 ng/mL (0.000-0.034) H* 06/13/17 10:53 Total Protein 5.8 g/dL (6.3-8.2) L 06/13/17 10:53 Albumin 2.6 g/dL (3.5-5.0) L 06/14/17 10:47 Triglycerides 114 mg/dL (<150) 06/14/17 10:47 TSH 0.038 mIU/L (0.465-4.680) L 06/15/17 04:02 Free T4 1.61 ng/dL (0.78-2.19) 06/15/17 04:02 Urine Color Yellow 06/14/17 09:30 Urine Appearance Cloudy (Clear) H 06/14/17 09:30 Urine pH 6.0 (5.0-8.0) 06/14/17 09:30 Ur Specific [place] 1.014 (1.001-1.035) 06/14/17 09:30 Urine Protein 2+ (Negative) H 06/14/17 09:30 Urine Glucose (UA) Negative (Negative) 06/14/17 09:30 Urine Ketones 1+ (Negative) H 06/14/17 09:30 Urine Blood Moderate (Negative) H 06/14/17 09:30 Urine Nitrite Negative (Negative) 06/14/17 09:30 Urine Bilirubin Negative (Negative) 06/14/17 09:30 Urine Urobilinogen <2.0 mg/dL (<2.0) 06/14/17 09:30 Ur Leukocyte Esterase Negative (Negative) 06/14/17 09:30 Urine RBC 7 /hpf (0-5) H 06/14/17 09:30 Urine WBC 4 /hpf (0-5) 06/14/17 09:30 Ur Squamous Epith Cells <1 /hpf (0-4) 06/14/17 09:30 Hyaline Casts 3 /lpf (0-2) H 06/14/17 09:30 Urine Mucus Rare /hpf (None) H 06/14/17 09:30 Vancomycin Trough <5.0 ug/mL 06/16/17 05:45 Urine Legionella Ag Not detected (Not detected) 06/14/17 09:30 Mycoplasma pneumon IgM 0.07 INDEX (<=0.90) 06/13/17 10:53 Microbiology 06/13/17 10:53 Blood Blood Culture - Preliminary No Growth after 120 hours 06/14/17 11:15 Sputum Gram Stain - Final 06/14/17 11:15 Sputum Sputum Culture - Final Ayana albicans Yeast species 06/14/17 09:30 Urine,Catheterized Urine Culture - Final - Imaging and Cardiology Chest x-ray: image reviewed (COPD with persistent basal infiltrate) Assessment and Plan (1) COPD (chronic obstructive pulmonary disease) Status: Acute (2) Acute respiratory failure Narrative/Plan: 61 year old woman who presents to the emergency center with progressive shortness of breath. Upon presentation she was having difficulties with an exacerbation of her COPD. Despite treatments she required BiPAP therapy for respiratory support. She did not improve significantly and earlier today she developed respiratory failure requiring intubation with sedation and mechanical ventilation. At the time of intubation there was a copious amount of material that was found. This is been sent for culture. She treated with levofloxacin for the exacerbation of her COPD as well as significant supportive measures such as the intubation, and steroid therapy. She is not hypotensive. She has good urinary output. She is tolerating sedation well and is interacting. Consider further help direct her antibiotic therapy. 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 At this time no evidence of any sepsis from her TPN catheter but cultures are pending. As noted sputum is in process and receiving antibiotic therapy. A long discussion occurs with the family about her overall care. She does have advanced lung disease. In the morning tomorrow her status will determine the best possible plan if she is not able to be weaned from the ventilator. The family does not believe that she would want to have tracheostomy and long-term vent facility placement. We discuss that this is a reasonable and compassionate decision. It is related the family will catheter tomorrow and she will likely be extubated at that time. Cultures are process most recent cultures have had pseudomonas and Enterobacter. No need to add vancomycin at this time. Status: Acute
[2017-06-18] MEDS: DULoxetine HCL 30 MG CAPSULE.DR PO SCH (22:01)
[2017-06-19 00:02] LABS: Glucose,Whole Blood 203 mg/dL (75-99)
[2017-06-19] MEDS: methylPREDNISolone SOD SUCCI 125 MG/2 ML VIAL IV SCH ×2 (00:28→07:08)
[2017-06-19] MEDS: INSULIN LISPRO (humaLOG) 300 UNIT/3 ML VIAL SQ SCH ×2 (00:29→06:24)
[2017-06-19] MEDS: SODIUM CHLORIDE 0.9% 1,000 ML IV SCH (00:31)
[2017-06-19] MEDS: PROPOFOL 1,000 MG/100 ML VIAL IV SCH ×2 (01:35→09:29)
[2017-06-19] MEDS ORDERED: [UNRECOGNIZED DRUG - REMARK] IV SCH ×4 (02:00)
[2017-06-19] MEDS: HYDROmorphone 1 MG/ML 1 ML SYRINGE IVP PRN ×3 (02:41→10:55)
[2017-06-19] MEDS: LORazepam 2 MG/ML INJ IV PRN ×3 (02:42→10:55)
[2017-06-19 04:53] LABS: Basophils % (A) 0 %; CH 31.3; CHCM 31.2; Eosinophils % (A) 0 %; HCT 35.8 % (34.0-46.0); HDW 3.13; HGB 11.1 gm/dL (11.4-16.0); Hypochromasia Slight; Luc # (Auto) 0.16; Luc % (Auto) 2; Lymphocytes # (A) 0.3 k/uL (1.0-4.8); Lymphocytes % (A) 4 %; MCH 31.2 pg (25.0-35.0); MCHC 30.9 g/dL (31.0-37.0); Macrocytosis Slight; Mean Platelet Volume 7.5; Monocytes # (A) 0.2 k/uL (0-1.0); Monocytes % (A) 2 %; Neutrophils # (A) 7.5 k/uL (1.3-7.7); Neutrophils % (A) 92 %; RBC 3.55 m/uL (3.80-5.40); RDW 14.8 % (11.5-15.5); WBC 8.2 k/uL (3.8-10.6); WBC (Perox) 9.53
[2017-06-19 05:23] LABS: Anion Gap 5 mmol/L; Blood Urea Nitrogen 25 mg/dL (7-17); Calcium 8.6 mg/dL (8.4-10.2); Carbon Dioxide 27 mmol/L (22-30); Chloride 112 mmol/L (98-107); Glucose 173 mg/dL (74-99); Magnesium 2.3 mg/dL (1.6-2.3); Non-African American GFR(MDRD) >60 (>60 ml/min/1.73 sqM); Potassium 4.8 mmol/L (3.5-5.1); Sodium 144 mmol/L (137-145)
[2017-06-19 05:50] LABS: ABG PH 7.28 (7.35-7.45)
[2017-06-19 05:51] LABS: ABG Base Excess 0.2 mmol/L; ABG HCO3 26 mmol/L (21-25); ABG PCO2 57 mmHg (35-45); ABG PO2 76 mmHg (83-108); ABG TCO2 28 mmol/L (19-24)
[2017-06-19 05:56] LABS: Glucose,Whole Blood 169 mg/dL (75-99)
[2017-06-19] MEDS: BUDESONIDE 1 MG/2 ML NEBU INHALATION SCH (07:28)
[2017-06-19] MEDS: LEVALBUTEROL NEB 1.25 MG/3 ML AMP INHALATION SCH (07:28)
[2017-06-19] MEDS: IPRATROPIUM 0.5 MG/2.5 ML NEBU INHALATION SCH (07:28)
[2017-06-19] MEDS: ENOXAPARIN 40 MG/0.4 ML SYRINGE SQ SCH (08:00)
[2017-06-19] MEDS: METOPROLOL TARTRATE 25 MG TAB PO SCH (08:01)
[2017-06-19] MEDS: LEVOTHYROXINE IVP 100 MCG/5 ML VIAL IV SCH (08:02)
[2017-06-19] MEDS: DULoxetine HCL 60 MG CAPSULE.DR PO SCH (08:02)
[2017-06-19] MEDS: CHLORHEXIDINE GLUCONATE 15 ML CUP MUCOUS MEM SCH (08:02)
[2017-06-19] MEDS: PANTOPRAZOLE 40 MG/10 ML VIAL IV SCH (08:02)
[2017-06-19] MEDS: ASPIRIN 81 MG PO SCH (08:03)
[2017-06-19] MEDS: CEFEPIME 2 GM in SODIUM CHLORIDE 0.9% 50 ML IVPB SCH (08:27)
[2017-06-19 08:36] VITALS: BP 135/61; TEMP 98.2
--- NOTE | 2017-06-19 08:42 | XR ---
EXAMINATION TYPE: XR chest 1V portable DATE OF EXAM: 06/19/2017 Comparison: 06/18/2017 Clinical History: 61-year-old female tube placement Findings: ET tube is satisfactory, tip 2.9 cm from the nathen. NG tube is present. The sidehole is at the level of GE junction and could be further advanced into the stomach. Heart is normal size. Hyperinflation suggesting underlying emphysema. Multifocal interstitial and airspace opacity persists throughout the left lung with suggestion of a small effusion on the left. No significant change. Right anterior rob st wall injection port with catheter tip at the cavoatrial junction. Previously described right midlu ng pulmonary nodule not as well appreciated on the current exam. Impression: COPD with continued multifocal left-sided airspace disease and probable small effusion. Note that the NG tube sidehole is at the level of the GE junction and could be further advanced into the stomach.
[2017-06-19] MEDS ORDERED: MORPHINE SULFATE (100 MG/2 ML) 100 MG in SODIUM CHLORIDE 0.9% 100 ML IV SCH (09:30)
--- NOTE | 2017-06-19 10:16 | P.PN ---
Subjective This is a 61-year-old female well-known to me. The patient has a history of very severe COPD. She's asked to stage IV disease. She was admitted on June 13. She was intubated on June 14 for respiratory failure. I ended up but talking to the daughter. I must go to talk to the . The patient never really wanted to be on life support. They're thinking about withdrawing life support on her. She has a history of hypercapnic and hypoxemic respiratory failure. Other diagnoses include hyponatremia electrolyte disturbance small troponin leak malabsorption syndrome multiple previous pneumonias including Klebsiella MRSA Pseudomonas stenotrophomonas and other bacteria remote history of chronic tobacco use hypothyroidism osteoarthritis in general medical debility with malnutrition. The patient's doing poorly. The patient will probably need a tracheostomy and a feeding tube if they're to continue life support. Again I will speak to the Chris the [place]. I did speak to the daughter. The patient's currently on the assist control mode rate of 24 to be increased to 30 tidal volume 450 FiO2 45% PEEP of 5. We'll drop the time of I'm down from 450-350 the patient's blood gases show a PaO2 of 69 and pCO2 45 and a pH of 7.30. The patient is receiving a saline IV at 50 mL an hour TPN at 30 mL an hour the propofol which is currently off and norepinephrine which is currently off. The patient's chest x-ray shows significant left basilar airspace disease. The patient is seen again today 06/18/2017 in follow-up in the intensive care unit. She remains intubated on the mechanical ventilator. Current settings are assist control of 30, tidal volume 350, FiO2 45%, PEEP of 5. Current ABGs reveal a P O2 and 74, pCO2 59 and a pH of 7.23. Her current drips include TPN at 30 MLS per hour. Propofol at 45 mcg/kg/m. She is being nourished with Jevity 1.2 at 10 mL per hour. Today's chest x-ray shows persistent stable multifocal airspace disease left greater than right. Nodular density in the right midlung is stable. Sputum cultures positive for Ayana. Blood cultures reveal no growth to date. Urine culture reveals no growth. No leukocytosis. Hemoglobin 10.8. Hemodynamically stable. Afebrile. The patient is seen again today 06/19/2017 in follow-up in the intensive care unit. She remains intubated and sedated. Current vent settings are assist control of 30, tidal volume 350, FiO2 45% and a PEEP of 5. Morning blood gases reveal a P O2 of 76, pCO2 57 and a pH of 7.28. She is sedated on propofol 50 mcg/kg/m. She has a 0.9 normal saline at 50 MLS per hour. TPN at 30 mL per hour and Vital 1.2 at 10 mL per hour. Hemoglobin 11.1. Platelet count 311, 000. Creatinine 0.49. She has been hemodynamically stable. Maintaining O2 saturations in the low 90s. Chest x-ray continues to show multifocal left- sided airspace disease in a small effusion over underlying COPD. Objective - Vital Signs Vital signs: Vital Signs Temp 98.2 F 06/19/17 08:30 Pulse 114 H 06/19/17 10:00 Resp 30 H 06/19/17 10:00 BP 135/61 06/19/17 09:30 Pulse Ox 94 L 06/19/17 10:00 Intake & Output 06/18/17 06/19/17 06/19/17 18:59 06:59 18:59 Intake Total 1380 1385.719 350.166 Output Total 1005 985 485 Balance 375 400.719 -134.834 Weight 51.9 kg Intake: IV 1160 980 255 Cefepime 2 gm In Sodium 50 100 100 Chloride 0.9% 50 ml @ 100 mls/hr IVPB Q12HR [facility] Rx #:[id number] Levofloxacin 750Mg-D5w 150 Pmx 750 mg In Dextrose/ Water 1 150ml.bag @ 100 mls/hr IVPB Q24H [facility] Rx#: [id number] Normal Saline 600 550 125 TPN 360 330 30 Intake, IV Titration 100 175.719 85.166 Amount Propofol 1,000 mg In 100 100 175.719 85.166 ml @ Titrate IV .Q0M [facility] Rx#:[id number] Tube Feeding 120 140 10 Other 90 Output: Urine 1005 985 485 Other: Voiding Method Indwelling Catheter Indwelling Catheter ABP, PAP, CO, CI - Last Documented Arterial Blood Pressure 149/79 - Exam Sedated. The patient's current orally placed endotracheal tube. HEENT examination is grossly unremarkable. Mucous membranes are moist. No oral lesions. Neck supple. Full range of motion. No adenopathy or thyromegaly. Cardiovascular examination reveals regular rhythm rate. S1-S2 normal. No S3- S4 or murmur. Lungs reveal coarse rhonchi. Breath sounds are diminished. Breath sounds are equal. No crackles. Abdomen soft. Extremities are intact. No cyanosis clubbing or edema. Skin is without rash. Neurologic examination cannot be performed. - Labs CBC & Chem 7: 06/19/17 04:45 06/19/17 04:45 Labs: Abnormal Lab Results - Last 24 Hours (Table) 06/18/17 06/18/17 06/18/17 Range/Units 12:06 18:00 23:59 RBC (3.80-5.40) m/uL Hgb (11.4-16.0) gm/dL MCV (80.0-100.0) fL MCHC (31.0-37.0) g/dL Lymphocytes # (1.0-4.8) k/uL ABG pH (7.35-7.45) ABG pCO2 (35-45) mmHg ABG pO2 (83-108) mmHg ABG HCO3 (21-25) mmol/L ABG Total CO2 (19-24) mmol/L ABG O2 Saturation (94-97) % Chloride (98-107) mmol/L BUN (7-17) mg/dL Creatinine (0.52-1.04) mg/dL Glucose (74-99) mg/dL POC Glucose (mg/dL) 198 H 170 H 203 H (75-99) mg/dL Ionized Calcium Farhad (4.5-5.3) mg/dL Phosphorus (2.5-4.5) mg/dL 06/19/17 06/19/17 06/19/17 Range/Units 04:45 04:45 04:45 RBC 3.55 L (3.80-5.40) m/uL Hgb 11.1 L (11.4-16.0) gm/dL MCV 101.0 H (80.0-100.0) fL MCHC 30.9 L (31.0-37.0) g/dL Lymphocytes # 0.3 L (1.0-4.8) k/uL ABG pH (7.35-7.45) ABG pCO2 (35-45) mmHg ABG pO2 (83-108) mmHg ABG HCO3 (21-25) mmol/L ABG Total CO2 (19-24) mmol/L ABG O2 Saturation (94-97) % Chloride 112 H (98-107) mmol/L BUN 25 H (7-17) mg/dL Creatinine 0.49 L (0.52-1.04) mg/dL Glucose 173 H (74-99) mg/dL POC Glucose (mg/dL) (75-99) mg/dL Ionized Calcium Farhad 5.6 H (4.5-5.3) mg/dL Phosphorus 2.0 L (2.5-4.5) mg/dL 06/19/17 06/19/17 Range/Units 05:30 05:55 RBC (3.80-5.40) m/uL Hgb (11.4-16.0) gm/dL MCV (80.0-100.0) fL MCHC (31.0-37.0) g/dL Lymphocytes # (1.0-4.8) k/uL ABG pH 7.28 L (7.35-7.45) ABG pCO2 57 H (35-45) mmHg ABG pO2 76 L (83-108) mmHg ABG HCO3 26 H (21-25) mmol/L ABG Total CO2 28 H (19-24) mmol/L ABG O2 Saturation 93.0 L (94-97) % Chloride (98-107) mmol/L BUN (7-17) mg/dL Creatinine (0.52-1.04) mg/dL Glucose (74-99) mg/dL POC Glucose (mg/dL) 169 H (75-99) mg/dL Ionized Calcium Farhad (4.5-5.3) mg/dL Phosphorus (2.5-4.5) mg/dL Microbiology - Last 24 Hours (Table) 06/13/17 10:53 Blood Culture - Preliminary Blood No Growth after 120 hours Assessment and Plan Plan: Impression: #1 Acute hypoxic respiratory failure requiring intubation and mechanical ventilatory support. Secondary to an acute exacerbation of severe Gold stage III chronic obstructive pulmonary disease. Right upper lobe vague infiltrate is chronic in nature along with a left apical region as compared to previous x- rays. #2 Hyponatremia, recovered, current sodium 138. #3 Hypokalemia, recovered, current potassium 4.3. #4 Small troponin leak. #5 Malabsorption syndrome, receiving TPN in the outpatient setting, secondary to total gastrectomy/esophagectomy with pull-through. #6 Multiple previous pneumonias secondary to Pseudomonas, MRSA, Klebsiella and stenotrophomonas. Currently maintained on Bactrim in the outpatient setting. #7 Remote history of chronic tobacco use. #8 Hypothyroidism. #9 Osteoarthritis. #10 Poor overall functional performance based on the above-mentioned multiple comorbidities. Plan: The patient was seen and evaluated by Dr. Rader. Her chest x-ray and labs were reviewed. The plan per family request is to have the patient go into hospice/ comfort care approximately 2 PM today. We will follow their wishes and assure the patient is kept comfortable. She'll be extubated at that time. She remains a DO NOT RESUSCITATE. We will discontinue all unnecessary medications. Critical care time 34 minutes. Time with Patient: Greater than 30
--- NOTE | 2017-06-19 11:28 | P.PN ---
Subjective This is a 61-year-old pleasant female patient of Dr. Javier Ledesma and Dr. Rader with known history of COPD, CVA, fibromyalgia, GERD, GI bleed, pneumonia and a previous line infections treated by Dr. Cruz last 09/14/2015, she was septic at that time required IV antibiotics with sepsis from her right chest wall cellulitis. Her last admission was September 2016 for left-sided pneumonia with sepsis, possible gram-negative pneumonia possible septic shock, no sputum cultures isolated during that last admission. Patient is known to have history of malabsorption she had partial gastrectomy followed by total gastrectomy with esophagectomy secondary to peptic ulcer disease and has been on TPN via port in the right side of her chest wall for the last few years had multiple complication previously but was hospitalized last time over a year ago.. She also has history of MRSA last one was 3 years ago arising from the neck abscess Patient presented to the emergency department at [facility] with severe shortness of breath, cough or 4 day duration, patient was started on Bactrim by Dr. Cruz, no prednisone from pulmonary service or PCP, patient did not get any better was subsequently admitted to the emergency room secondary to severe COPD exacerbation and right-sided pneumonia based on chest x-ray. Patient had fever and chills, fatigue and back pain near the right scapula In the emergency room COPD changes were noted and chest x-ray, with micronodular pattern, hiatal hernia with prominent lucency in the upper mediastinum stable with back 2012, a vague infiltrate right upper lobe, upon arrival to emergency room, patient was wheezing with severe hypoxemic dyspnea tachypneic., patient required BiPAP, treatments, patient is a full code and agrees to intubation if necessary 06/14: Patient required mechanical ventilation early this morning at around 7:30, and intubated by Dr. Miranda, patient was tachypneic and fatiguing with the BiPAP treatment, she also was hypoxemic despite BiPAP, she was severely acidotic based on ABG the pH of 7.04 pCO2 of 94, OG tube to be placed later today patient is sedated on a vent 06/15: Patient remains in ICU, mechanical ventilated and not requiring any pressors patient spiking some temperatures, blood cultures are pending, vancomycin added to current regimen of Levaquin and cefepime with prior history of MRSA Dr. Cruz following. TPN infusing as previous from home 06/16: Patient still mechanically vented sedated, worsening pneumonia noted on chest x-ray, patient still febrile, patient currently is on Levophed 6 mics adjustments antibiotic maintained on Levaquin and cefepime multiple specialists on the case Dr. Narayan Cruz 06/17: Patient was seen and evaluated today, no change in patients condition. She still remains in the ICU, mechanical ventilated. Repeat chest x-ray showed persistent unchanged multifocal left lung opacities. She continues received cefepime and levofloxacin for her pneumonia. Pulmonary is on consult, the chances of weaning and extubation off the ventilator are poor, prognosis is poor. Comfort care will be discussed with the family. 06/18: The patient was seen and evaluated today, there has been no change in the patient's current condition. Sputum cultures positive for Ayana, blood cultures reveal no growth to date. Urine cultures revealed no growth. The family wishes are for withdrawal of life support, possibly sometime tomorrow once the family members have gathered, she is currently supportive care and remains a DO NOT RESUSCITATE status. Will continue to keep patient comfortable at this time. 06/19: There's been no change in patient's current condition. She remains on the vent, plans are to withdraw from life support today and do terminal weaning. Will continue to make patient comfortable. Objective - Vital Signs Vital signs: Vital Signs Temp 98.2 F 06/19/17 08:30 Pulse 115 H 06/19/17 08:30 Resp 30 H 06/19/17 08:30 BP 135/61 06/19/17 08:30 Pulse Ox 94 L 06/19/17 08:30 Intake & Output 06/18/17 06/19/17 06/19/17 18:59 06:59 18:59 Intake Total 1380 1385.719 240 Output Total 1005 985 185 Balance 375 400.719 55 Weight 51.9 kg Intake: IV 1160 980 230 Cefepime 2 gm In Sodium 50 100 100 Chloride 0.9% 50 ml @ 100 mls/hr IVPB Q12HR [facility] Rx #:[id number] Levofloxacin 750Mg-D5w 150 Pmx 750 mg In Dextrose/ Water 1 150ml.bag @ 100 mls/hr IVPB Q24H [facility] Rx#: [id number] Normal Saline 600 550 100 TPN 360 330 30 Intake, IV Titration 100 175.719 Amount Propofol 1,000 mg In 100 100 175.719 ml @ Titrate IV .Q0M [facility] Rx#:[id number] Tube Feeding 120 140 10 Other 90 Output: Urine 1005 985 185 Other: Voiding Method Indwelling Catheter Indwelling Catheter ABP, PAP, CO, CI - Last Documented Arterial Blood Pressure 150/76 - Exam - Constitutional General appearance: Present: no acute distress - EENT Eyes: Present: anicteric sclerae, EOMI, PERRLA - Neck Neck: Absent: lymphadenopathy, normal ROM, other, rigidity, stridor, thyromegaly - Respiratory Respiratory: bilateral: diminished, rales, rhonchi - Cardiovascular Rhythm: regular Heart sounds: normal: S1, S2 Abnormal Heart Sounds: Absent: systolic murmur, diastolic murmur, rub, S3 Gallop , S4 Gallop, click, other - Gastrointestinal General gastrointestinal: Present: normal bowel sounds, soft - Integumentary Integumentary: Present: normal - Psychiatric Psychiatric: Present: appropriate affect - Additional findings Additional findings: Patient sedated vented in machine - Labs CBC & Chem 7: 06/19/17 04:45 06/19/17 04:45 Labs: Abnormal Lab Results - Last 24 Hours (Table) 06/18/17 06/18/17 06/18/17 Range/Units 12:06 18:00 23:59 RBC (3.80-5.40) m/uL Hgb (11.4-16.0) gm/dL MCV (80.0-100.0) fL MCHC (31.0-37.0) g/dL Lymphocytes # (1.0-4.8) k/uL ABG pH (7.35-7.45) ABG pCO2 (35-45) mmHg ABG pO2 (83-108) mmHg ABG HCO3 (21-25) mmol/L ABG Total CO2 (19-24) mmol/L ABG O2 Saturation (94-97) % Chloride (98-107) mmol/L BUN (7-17) mg/dL Creatinine (0.52-1.04) mg/dL Glucose (74-99) mg/dL POC Glucose (mg/dL) 198 H 170 H 203 H (75-99) mg/dL Ionized Calcium Farhad (4.5-5.3) mg/dL Phosphorus (2.5-4.5) mg/dL 06/19/17 06/19/17 06/19/17 Range/Units 04:45 04:45 04:45 RBC 3.55 L (3.80-5.40) m/uL Hgb 11.1 L (11.4-16.0) gm/dL MCV 101.0 H (80.0-100.0) fL MCHC 30.9 L (31.0-37.0) g/dL Lymphocytes # 0.3 L (1.0-4.8) k/uL ABG pH (7.35-7.45) ABG pCO2 (35-45) mmHg ABG pO2 (83-108) mmHg ABG HCO3 (21-25) mmol/L ABG Total CO2 (19-24) mmol/L ABG O2 Saturation (94-97) % Chloride 112 H (98-107) mmol/L BUN 25 H (7-17) mg/dL Creatinine 0.49 L (0.52-1.04) mg/dL Glucose 173 H (74-99) mg/dL POC Glucose (mg/dL) (75-99) mg/dL Ionized Calcium Farhad 5.6 H (4.5-5.3) mg/dL Phosphorus 2.0 L (2.5-4.5) mg/dL 06/19/17 06/19/17 Range/Units 05:30 05:55 RBC (3.80-5.40) m/uL Hgb (11.4-16.0) gm/dL MCV (80.0-100.0) fL MCHC (31.0-37.0) g/dL Lymphocytes # (1.0-4.8) k/uL ABG pH 7.28 L (7.35-7.45) ABG pCO2 57 H (35-45) mmHg ABG pO2 76 L (83-108) mmHg ABG HCO3 26 H (21-25) mmol/L ABG Total CO2 28 H (19-24) mmol/L ABG O2 Saturation 93.0 L (94-97) % Chloride (98-107) mmol/L BUN (7-17) mg/dL Creatinine (0.52-1.04) mg/dL Glucose (74-99) mg/dL POC Glucose (mg/dL) 169 H (75-99) mg/dL Ionized Calcium Farhad (4.5-5.3) mg/dL Phosphorus (2.5-4.5) mg/dL Microbiology - Last 24 Hours (Table) 06/13/17 10:53 Blood Culture - Preliminary Blood No Growth after 120 hours Assessment and Plan Plan: 1. Severe hypoxemic acute on chronic respiratory failure with chronic hypoxemia secondary to severe COPD exacerbation, sepsis. Patient is currently on mechanical ventilation. Treatments with nebulized Xopenex, budesonide and IV Solu-Medrol. 2. Acute respiratory failure requiring mechanical ventilation on 06/14/2017. Critical care pulmonary physician managing vent. 3. Right sided pneumonia, sepsis with septic shock. Patient is on IV cefepime and levofloxacin. Sputum cultures obtained show Ayana albicans. Infectious disease, critical care, and pulmonary is on consult. 4. Chronic hypoxemic respiratory failure. On mechanical ventilation, with possible withdrawal from life support sometime today. 5. Chemistry abnormality, most likely secondary to severe pneumonia, chemistries will be followed closely 6. Hypothyroidism. Continue levothyroxine IV at 50 g daily. 7. History of anxiety and panic attack. Ativan 1 mg IV every 4 hours when necessary 8. History of neuropathy and fibromyalgia. Continue Cymbalta 9. Chronic depression and depressive disorders. Continue patient on Cymbalta 90 mg daily. 10. Arrhythmia. Patient has been on metoprolol 25 g twice a day, diltiazem 5mg/ hr 11. Osteoporosis. Patient has been on Miacalcin along with calcium and vitamin D. 12 Severe malabsorption and malnutrition: TPN currently is infusing through [facility] right side GI prophylaxis: Patient will be on Protonix 40 mg IV daily DVT prophylaxis: Patient will have knee-high BARBARA hose and Venodyne boots and lovenox. The above impression and plan of care have been discussed and directed by signing physician. Karis Gil nurse practitioner acting as scribe for signing physician.
[2017-06-19] MEDS ORDERED: ACETAMINOPHEN TAB 500 MG TAB PO PRN (12:00)
[2017-06-19] MEDS ORDERED: LORazepam 2 MG/ML INJ IV PRN (13:03)
[2017-06-19] MEDS ORDERED: LORazepam 2 MG/ML INJ ONE (13:07)
[2017-06-19] MEDS ORDERED: SCOPOLAMINE 1.5MG/72HR PATCH TRANSDERM PRN (14:15)
[2017-06-19] MEDS ORDERED: ONDANSETRON 4 MG/2 ML VIAL IVP PRN (14:15)
[2017-06-19 14:20] VITALS: PULSE 115; RESP 29
--- NOTE | 2017-06-19 20:44 | P.PN ---
Subjective Principal diagnosis: Respiratory failure 61-year-old female presents to the emergency center complaining of significant shortness of breath. She is well-known to the pulmonology group as well as infectious disease regarding her many pulmonary infections and bouts of sepsis in the past. She has advanced pulmonary disease with Gold stage III lung disease. She often utilizes oxygen and has been on steroids intermittently. At the time of presentation a is a center she was profoundly short of breath. She required initiation of BiPAP to maintain her respiratory status. Her respiratory status deteriorated and she required intubation with mechanical ventilation earlier today and she was moved to intensive care unit for ongoing care. She is not having Laura and hypotension but has ongoing respiratory failure. Nursing staff relates the time of intubation a gross amount of grossly purulent secretions were obtained from the endotracheal tube. Since she has had some significant improvement of her pulmonary status and her oxygenation. She has a history of multiple infections including Pseudomonas aeruginosa. She has had port infection last one is for more a year ago. At this time as noted she is intubated sedated and mechanically ventilated. She is comfortable. The nursing staff relates to no other acute concerns and has been improvement of her ventilation. The patient's and daughter and family are presentagain today Extensive discussion ensues about her current intubation status. She does have advanced COPD. The concern would be that she will fail weaning If she fails weaning she within need to have a tracheostomy and plans for long-term vent treatment. Further discussion is occur with the family. The patient has failed to improve. In keeping with her conversations over the last 3 days they have family coming in from out of town this morning. The plan at this point in time will be for a terminal wean at about 2:00. Objective - Vital Signs Vital signs: Vital Signs Temp 98.2 F 06/19/17 08:30 Pulse 115 H 06/19/17 14:00 Resp 29 H 06/19/17 14:00 BP 135/61 06/19/17 09:30 Pulse Ox 94 L 06/19/17 14:00 Intake & Output 06/19/17 06/19/17 06/20/17 06:59 18:59 06:59 Intake Total 1385.719 430.009 Output Total 985 910 Balance 400.719 -479.991 Weight 51.9 kg 51.9 kg Intake: IV 980 255 Cefepime 2 gm In Sodium 100 100 Chloride 0.9% 50 ml @ 100 mls/hr IVPB Q12HR [facility] Rx #:[id number] Normal Saline 550 125 TPN 330 30 Intake, IV Titration 175.719 165.009 Amount Morphine Sulfate (100 mg/ 24.591 2 ml) 100 mg In Sodium Chloride 0.9% 100 ml @ 1 MG/HR 1.02 mls/hr IV . Q24H [facility] Rx#:[id number] Propofol 1,000 mg In 100 175.719 140.418 ml @ Titrate IV .Q0M [facility] Rx#:[id number] Tube Feeding 140 10 Other 90 Output: Urine 985 910 Other: Voiding Method Indwelling Catheter Indwelling Catheter ABP, PAP, CO, CI - Last Documented Arterial Blood Pressure 149/79 - Exam 61-year-old female who was admitted very thin but not cachectic build. She is intubated sedated and mechanically ventilated. HEENT: Anicteric conjunctiva are pink and moist nasal mucosa grossly intact without significant lesions, there is no thrush. No lesions noted around the endotracheal tube Neck: The neck is supple without significant lymphadenopathy or thyromegaly. Lungs: There is symmetrical air entry. There are coarse crackles and wheezes scattered throughout the lung jeter.) Considerably better than prior. Minimal dullness is noted to the bilateral bases. Heart: Regular rate and rhythm with an audible S1-S2, no S3 no S4. There is no significant murmur click or rub, PMI was nondisplaced. Abdomen: Positive bowel sounds soft and nontender without palpable masses or organomegaly. There was no guarding or rebound. Extremities: The upper extremities have excellent pulses they are symmetric, no significant petechiae or telangiectasia. No splinter hemorrhages were noted. The lower extremities are free from significant edema. The peripheral pulses were 2+ and symmetric. Neuro: Sedated - Labs CBC & Chem 7: 06/19/17 04:45 06/19/17 04:45 Labs: Abnormal Lab Results - Last 24 Hours (Table) 06/18/17 06/19/17 06/19/17 Range/Units 23:59 04:45 04:45 RBC 3.55 L (3.80-5.40) m/uL Hgb 11.1 L (11.4-16.0) gm/dL MCV 101.0 H (80.0-100.0) fL MCHC 30.9 L (31.0-37.0) g/dL Lymphocytes # 0.3 L (1.0-4.8) k/uL ABG pH (7.35-7.45) ABG pCO2 (35-45) mmHg ABG pO2 (83-108) mmHg ABG HCO3 (21-25) mmol/L ABG Total CO2 (19-24) mmol/L ABG O2 Saturation (94-97) % Chloride 112 H (98-107) mmol/L BUN 25 H (7-17) mg/dL Creatinine 0.49 L (0.52-1.04) mg/dL Glucose 173 H (74-99) mg/dL POC Glucose (mg/dL) 203 H (75-99) mg/dL Ionized Calcium Frahad (4.5-5.3) mg/dL Phosphorus 2.0 L (2.5-4.5) mg/dL 06/19/17 06/19/17 06/19/17 Range/Units 04:45 05:30 05:55 RBC (3.80-5.40) m/uL Hgb (11.4-16.0) gm/dL MCV (80.0-100.0) fL MCHC (31.0-37.0) g/dL Lymphocytes # (1.0-4.8) k/uL ABG pH 7.28 L (7.35-7.45) ABG pCO2 57 H (35-45) mmHg ABG pO2 76 L (83-108) mmHg ABG HCO3 26 H (21-25) mmol/L ABG Total CO2 28 H (19-24) mmol/L ABG O2 Saturation 93.0 L (94-97) % Chloride (98-107) mmol/L BUN (7-17) mg/dL Creatinine (0.52-1.04) mg/dL Glucose (74-99) mg/dL POC Glucose (mg/dL) 169 H (75-99) mg/dL Ionized Calcium Farhad 5.6 H (4.5-5.3) mg/dL Phosphorus (2.5-4.5) mg/dL Microbiology - Last 24 Hours (Table) 06/13/17 10:53 Blood Culture - Final Blood No Growth after 144 hours Laboratory Results WBC 8.2 k/uL (3.8-10.6) 06/19/17 04:45 RBC 3.55 m/uL (3.80-5.40) L 06/19/17 04:45 Hgb 11.1 gm/dL (11.4-16.0) L 06/19/17 04:45 Hct 35.8 % (34.0-46.0) 06/19/17 04:45 MCV 101.0 fL (80.0-100.0) H 06/19/17 04:45 MCH 31.2 pg (25.0-35.0) 06/19/17 04:45 MCHC 30.9 g/dL (31.0-37.0) L 06/19/17 04:45 RDW 14.8 % (11.5-15.5) 06/19/17 04:45 Plt Count 311 k/uL (150-450) 06/19/17 04:45 Neutrophils % 92 % 06/19/17 04:45 Lymphocytes % 4 % 06/19/17 04:45 Monocytes % 2 % 06/19/17 04:45 Eosinophils % 0 % 06/19/17 04:45 Basophils % 0 % 06/19/17 04:45 Neutrophils # 7.5 k/uL (1.3-7.7) 06/19/17 04:45 Lymphocytes # 0.3 k/uL (1.0-4.8) L 06/19/17 04:45 Monocytes # 0.2 k/uL (0-1.0) 06/19/17 04:45 Eosinophils # 0.0 k/uL (0-0.7) 06/19/17 04:45 Basophils # 0.0 k/uL (0-0.2) 06/19/17 04:45 Hypochromasia Slight 06/19/17 04:45 Macrocytosis Slight 06/19/17 04:45 PT 10.2 sec (9.0-12.0) 06/15/17 23:40 INR 1.0 (<1.2) 06/15/17 23:40 APTT 35.6 sec (22.0-30.0) H 06/15/17 23:40 Sample Site naples 06/19/17 05:30 ABG pH 7.28 (7.35-7.45) L 06/19/17 05:30 ABG pCO2 57 mmHg (35-45) H 06/19/17 05:30 ABG pO2 76 mmHg (83-108) L 06/19/17 05:30 ABG HCO3 26 mmol/L (21-25) H 06/19/17 05:30 ABG Total CO2 28 mmol/L (19-24) H 06/19/17 05:30 ABG O2 Saturation 93.0 % (94-97) L 06/19/17 05:30 ABG Base Excess 0.2 mmol/L 06/19/17 05:30 FiO2 45 % 06/19/17 05:30 Sodium 144 mmol/L (137-145) 06/19/17 04:45 Potassium 4.8 mmol/L (3.5-5.1) 06/19/17 04:45 Chloride 112 mmol/L (98-107) H 06/19/17 04:45 Carbon Dioxide 27 mmol/L (22-30) 06/19/17 04:45 Anion Gap 5 mmol/L 06/19/17 04:45 BUN 25 mg/dL (7-17) H 06/19/17 04:45 Creatinine 0.49 mg/dL (0.52-1.04) L 06/19/17 04:45 Est GFR (MDRD) Af Amer >60 (>60 ml/min/1.73 sqM) 06/19/17 04:45 Est GFR (MDRD) Non-Af >60 (>60 ml/min/1.73 sqM) 06/19/17 04:45 Glucose 173 mg/dL (74-99) H 06/19/17 04:45 POC Glucose (mg/dL) 169 mg/dL (75-99) H 06/19/17 05:55 POC Glu Appointment Clerk ID Coby Mchugh 06/19/17 05:[address] Glu mg/dL 126 mg/dL 06/15/17 04:02 Hemoglobin A1c 6.0 % (4.2-6.1) 06/15/17 04:02 Plasma Lactic Acid [place] 1.2 mmol/L (0.7-2.0) 06/15/17 06:14 Calcium 8.6 mg/dL (8.4-10.2) 06/19/17 04:45 Ionized Calcium Farhad 5.6 mg/dL (4.5-5.3) H 06/19/17 04:45 Phosphorus 2.0 mg/dL (2.5-4.5) L 06/19/17 04:45 Magnesium 2.3 mg/dL (1.6-2.3) 06/19/17 04:45 Total Bilirubin 0.4 mg/dL (0.2-1.3) 06/13/17 10:53 AST 51 U/L (14-36) H 06/13/17 10:53 ALT 39 U/L (9-52) 06/13/17 10:53 Alkaline Phosphatase 132 U/L (38-126) H 06/13/17 10:53 Total Creatine Kinase 69 U/L (30-135) 06/13/17 10:53 CK-MB (CK-2) 2.0 ng/mL (0.0-2.4) 06/13/17 10:53 CK-MB (CK-2) Rel Index 2.9 06/13/17 10:53 Troponin I 0.135 ng/mL (0.000-0.034) H* 06/13/17 10:53 Total Protein 5.8 g/dL (6.3-8.2) L 06/13/17 10:53 Albumin 2.6 g/dL (3.5-5.0) L 06/14/17 10:47 Triglycerides 114 mg/dL (<150) 06/14/17 10:47 TSH 0.038 mIU/L (0.465-4.680) L 06/15/17 04:02 Free T4 1.61 ng/dL (0.78-2.19) 06/15/17 04:02 Urine Color Yellow 06/14/17 09:30 Urine Appearance Cloudy (Clear) H 06/14/17 09:30 Urine pH 6.0 (5.0-8.0) 06/14/17 09:30 Ur Specific [place] 1.014 (1.001-1.035) 06/14/17 09:30 Urine Protein 2+ (Negative) H 06/14/17 09:30 Urine Glucose (UA) Negative (Negative) 06/14/17 09:30 Urine Ketones 1+ (Negative) H 06/14/17 09:30 Urine Blood Moderate (Negative) H 06/14/17 09:30 Urine Nitrite Negative (Negative) 06/14/17 09:30 Urine Bilirubin Negative (Negative) 06/14/17 09:30 Urine Urobilinogen <2.0 mg/dL (<2.0) 06/14/17 09:30 Ur Leukocyte Esterase Negative (Negative) 06/14/17 09:30 Urine RBC 7 /hpf (0-5) H 06/14/17 09:30 Urine WBC 4 /hpf (0-5) 06/14/17 09:30 Ur Squamous Epith Cells <1 /hpf (0-4) 06/14/17 09:30 Hyaline Casts 3 /lpf (0-2) H 06/14/17 09:30 Urine Mucus Rare /hpf (None) H 06/14/17 09:30 Vancomycin Trough <5.0 ug/mL 06/16/17 05:45 Urine Legionella Ag Not detected (Not detected) 06/14/17 09:30 Mycoplasma pneumon IgM 0.07 INDEX (<=0.90) 06/13/17 10:53 Microbiology 06/13/17 10:53 Blood Blood Culture - Final No Growth after 144 hours 06/14/17 11:15 Sputum Gram Stain - Final 06/14/17 11:15 Sputum Sputum Culture - Final Ayana albicans Yeast species 06/14/17 09:30 Urine,Catheterized Urine Culture - Final Assessment and Plan (1) COPD (chronic obstructive pulmonary disease) Status: Acute (2) Acute respiratory failure Narrative/Plan: 61 year old woman who presents to the emergency center with progressive shortness of breath. Upon presentation she was having difficulties with an exacerbation of her COPD. Despite treatments she required BiPAP therapy for respiratory support. She did not improve significantly and earlier today she developed respiratory failure requiring intubation with sedation and mechanical ventilation. At the time of intubation there was a copious amount of material that was found. This is been sent for culture. She treated with levofloxacin for the exacerbation of her COPD as well as significant supportive measures such as the intubation, and steroid therapy. She is not hypotensive. She has good urinary output. She is tolerating sedation well and is interacting. Consider further help direct her antibiotic therapy. 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 At this time no evidence of any sepsis from her TPN catheter but cultures are pending. As noted sputum is in process and receiving antibiotic therapy. A long discussion occurs with the family about her overall care. She does have advanced lung disease. During the day and met with the family. We discussed her lack of improvement. They are in agreement that later today a terminal wean will occur. We are making arrangements at the time of her extubation to have her moved to a private room on the fourth or fifth floor so family can spend time with her. 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 All the family's questions are answered. They're given emotional support. Status: Acute
--- NOTE | 2017-07-08 09:39 | CDI ---
In responding to this query, please exercise your independent professional judgment. The [facility] Coding Staff and Clinical Documentation Specialists appreciate your assistance in clarifying documentation, maintaining compliance with coding guidelines, accurately documenting patients condition and capturing severity of illness. The fact that a question is asked does not imply that any particular answer is desired or expected. Communication forms are a method of clarifying documentation and are not made part of the Legal Health Record. Thank you in advance for your clarification. Last Revision, August 2015 Tyler Cantor [address] [facility] [address] [place] [address] Documentation Clarification Form Date: 07/08/2017 9:34:00 AM From: Kandice Gonzalez [facility] Admit Date: 06/13/2017 11:54:00 AM Patient Name: Janet Garcia Visit Number: [id number] Date: 06-19-17 Karis Gil GRAPE CRUSHER-C: In your professional opinion, can you please clarify Preliminary Cause of . Please document in a discharge/ summary in order to capture severity of illness and risk of mortality. Include clinical findings that support your diagnosis. If you have a question about this query, please contact Argentina Castillo Horticultural Worker at [phone] between 8am and 5pm. FYI: Press F11 to launch patient chart. ANDREW
--- NOTE | 2017-07-08 15:22 | P.DS ---
Providers Date of admission: 06/13/17 11:54 Expected date of discharge: 07/19/17 Attending physician: Teresita Tracy Consults: 06/13/17 11:54 Consult Physician Routine Consulting Provider: Rasta Rader Consult Reason/Comments: known Do you want consulting provider notified?: Yes 06/13/17 15:26 Consult Physician Routine Consulting Provider: Nito Cruz Consult Reason/Comments: pneumonia, pt known to him Do you want consulting provider notified?: Yes Primary care physician: Javier Ledesma [facility] Course: This is a 61-year-old pleasant female patient of Dr. Javier Ledesma and Dr. Rader with known history of COPD, CVA, fibromyalgia, GERD, GI bleed, pneumonia and a previous line infections treated by Dr. Cruz last 09/14/2015, she was septic at that time required IV antibiotics with sepsis from her right chest wall cellulitis. Her last admission was September 2016 for left-sided pneumonia with sepsis, possible gram-negative pneumonia possible septic shock, no sputum cultures isolated during that last admission. Patient is known to have history of malabsorption she had partial gastrectomy followed by total gastrectomy with esophagectomy secondary to peptic ulcer disease and has been on TPN via port in the right side of her chest wall for the last few years had multiple complication previously but was hospitalized last time over a year ago.. She also has history of MRSA last one was 3 years ago arising from the neck abscess Patient presented to the emergency department at [facility] with severe shortness of breath, cough or 4 day duration, patient was started on Bactrim by Dr. Cruz, no prednisone from pulmonary service or PCP, patient did not get any better was subsequently admitted to the emergency room secondary to severe COPD exacerbation and right-sided pneumonia based on chest x-ray. Patient had fever and chills, fatigue and back pain near the right scapula In the emergency room COPD changes were noted and chest x-ray, with micronodular pattern, hiatal hernia with prominent lucency in the upper mediastinum stable with back 2012, a vague infiltrate right upper lobe, upon arrival to emergency room, patient was wheezing with severe hypoxemic dyspnea tachypneic., patient required BiPAP, treatments, patient is a full code and agrees to intubation if necessary 06/14: Patient required mechanical ventilation early this morning at around 7:30, and intubated by Dr. Miranda, patient was tachypneic and fatiguing with the BiPAP treatment, she also was hypoxemic despite BiPAP, she was severely acidotic based on ABG the pH of 7.04 pCO2 of 94, OG tube to be placed later today patient is sedated on a vent 06/15: Patient remains in ICU, mechanical ventilated and not requiring any pressors patient spiking some temperatures, blood cultures are pending, vancomycin added to current regimen of Levaquin and cefepime with prior history of MRSA Dr. Cruz following. TPN infusing as previous from home 06/16: Patient still mechanically vented sedated, worsening pneumonia noted on chest x-ray, patient still febrile, patient currently is on Levophed 6 mics adjustments antibiotic maintained on Levaquin and cefepime multiple specialists on the case Dr. Narayan Cruz 06/17: Patient was seen and evaluated today, no change in patients condition. She still remains in the ICU, mechanical ventilated. Repeat chest x-ray showed persistent unchanged multifocal left lung opacities. She continues received cefepime and levofloxacin for her pneumonia. Pulmonary is on consult, the chances of weaning and extubation off the ventilator are poor, prognosis is poor. Comfort care will be discussed with the family. 06/18: The patient was seen and evaluated today, there has been no change in the patient's current condition. Sputum cultures positive for Ayana, blood cultures reveal no growth to date. Urine cultures revealed no growth. The family wishes are for withdrawal of life support, possibly sometime tomorrow once the family members have gathered, she is currently supportive care and remains a DO NOT RESUSCITATE status. Will continue to keep patient comfortable at this time. 06/19: There's been no change in patient's current condition. She remains on the vent, plans are to withdraw from life support today and do terminal weaning. Will continue to make patient comfortable. Patient on June 19. Please see nursing documentation for details. Discharge diagnoses: 1. Severe hypoxemic acute on chronic respiratory failure with chronic hypoxemia secondary to severe COPD exacerbation, sepsis. 2. Acute respiratory failure requiring mechanical ventilation on 06/14/2017. 3. Right sided pneumonia, sepsis with septic shock. 4. Chronic hypoxemic respiratory failure. 5. Chemistry abnormality, most likely secondary to severe pneumonia 6. Hypothyroidism. 7. History of anxiety generalized and panic attack. 8. History of neuropathy and fibromyalgia. 9. Chronic depression recurrent and depressive disorders. 10. Arrhythmia. 11. Osteoporosis. 12 Severe malabsorption and severe protein calorie malnutrition Impression and plan of care have been directed as dictated by the signing physician. Carla Shankar nurse practitioner acting as scribe for signing physician. Patient Condition at Discharge: Undetermined Plan - Discharge Summary New Discharge Prescriptions: No Action Levalbuterol Hfa Inhaler [Xopenex Hfa Inhaler] 1 - 2 puff INHALATION RT-QID Levothyroxine Sodium [Synthroid] 100 mcg PO DAILY traZODone HCL [Desyrel] 100 mg PO HS Cyclobenzaprine [Flexeril] 10 mg PO BID Fluticasone/Salmeterol [Advair 500-50 Diskus] 1 puff INHALATION RT-DAILY Diclofenac Potassium [Cataflam] 50 mg PO TID Tiotropium 18 Mcg/Puff [Spiriva] 1 cap INHALATION RT-DAILY DULoxetine HCL [Cymbalta] 60 mg PO QAM Butalb/Asprin/Caff 50-325-40Mg [Fiorinal 50-325-40 MG] 1 - 2 cap PO Q4HR PRN MDD 6 tablets in 24 hours PRN Reason: Migraine Headache Calcitonin,[place],Synthetic [Miacalcin] 1 spray NS DAILY DULoxetine HCL [Cymbalta] 30 mg PO HS Gabapentin [Neurontin] 100 mg PO DAILY Metoprolol Tartrate [Lopressor] 25 mg PO BID Aspirin 81 mg PO DAILY Biotin 10 mg PO DAILY Cholecalciferol [Vitamin D3] 3,000 unit PO DAILY Cyanocobalamin (Vitamin B-12) [Vitamin B-12] 1,000 mcg PO DAILY Ergocalciferol (Vitamin D2) [Vitamin D2] 50,000 unit PO Q30D Fluticasone Nasal [place] [Flonase Nasal [place]] 1 spray EA NOSTRIL DAILY PRN PRN Reason: Allergy Symptoms Folic Acid 1 mg PO DAILY Gabapentin [Neurontin] 300 mg PO DAILY@1800 Gabapentin [Neurontin] 200 mg PO DAILY@1400 LORazepam [Ativan] 1 mg PO BID PRN PRN Reason: Anxiety Magnesium Oxide [Mag-Ox] 400 mg PO DAILY Montelukast [Singulair] 10 mg PO HS Multivitamins, Thera [Multivitamin (formulary)] 1 tab PO DAILY Nystatin 100,000Unit/gm Cream [Mycostatin Cream] 1 applic TOPICAL TID PRN PRN Reason: To affected area HYDROcodone/APAP 10-325MG [[place] 10-325] 1 tab PO TID PRN PRN Reason: Pain Discharge Medication List Cyclobenzaprine [Flexeril] 10 mg PO BID 03/02/14 [History] Diclofenac Potassium [Cataflam] 50 mg PO TID 03/02/14 [History] Fluticasone/Salmeterol [Advair 500-50 Diskus] 1 puff INHALATION RT-DAILY [History] Levalbuterol Hfa Inhaler [Xopenex Hfa Inhaler] 1 - 2 puff INHALATION RT-QID [History] Levothyroxine Sodium [Synthroid] 100 mcg PO DAILY 03/02/14 [History] Tiotropium 18 Mcg/Puff [Spiriva] 1 cap INHALATION RT-DAILY 03/02/14 [History] traZODone HCL [Desyrel] 100 mg PO HS 03/02/14 [History] Butalb/Asprin/Caff 50-325-40Mg [Fiorinal 50-325-40 MG] 1 - 2 cap PO Q4HR PRN MDD 6 tablets in 24 hours 09/14/15 [History] Calcitonin,[place],Synthetic [Miacalcin] 1 spray NS DAILY 09/14/15 [History] DULoxetine HCL [Cymbalta] 60 mg PO QAM 09/14/15 [History] DULoxetine HCL [Cymbalta] 30 mg PO HS 02/23/16 [History] Gabapentin [Neurontin] 100 mg PO DAILY 06/15/16 [History] Metoprolol Tartrate [Lopressor] 25 mg PO BID 04/18/17 [History] Aspirin 81 mg PO DAILY 06/13/17 [History] Biotin 10 mg PO DAILY 06/13/17 [History] Cholecalciferol [Vitamin D3] 3,000 unit PO DAILY 06/13/17 [History] Cyanocobalamin (Vitamin B-12) [Vitamin B-12] 1,000 mcg PO DAILY 06/13/17 [ History] Ergocalciferol (Vitamin D2) [Vitamin D2] 50,000 unit PO Q30D 06/13/17 [History] Fluticasone Nasal [place] [Flonase Nasal [place]] 1 spray EA NOSTRIL DAILY PRN 06/13 [History] Folic Acid 1 mg PO DAILY 06/13/17 [History] Gabapentin [Neurontin] 200 mg PO DAILY@1400 06/13/17 [History] Gabapentin [Neurontin] 300 mg PO DAILY@1800 06/13/17 [History] HYDROcodone/APAP 10-325MG [[place] 10-325] 1 tab PO TID PRN 06/13/17 [History] LORazepam [Ativan] 1 mg PO BID PRN 06/13/17 [History] Magnesium Oxide [Mag-Ox] 400 mg PO DAILY 06/13/17 [History] Montelukast [Singulair] 10 mg PO HS 06/13/17 [History] Multivitamins, Thera [Multivitamin (formulary)] 1 tab PO DAILY 06/13/17 [History ] Nystatin 100,000Unit/gm Cream [Mycostatin Cream] 1 applic TOPICAL TID PRN [History] Follow up Appointment(s)/Referral(s): Javier Ledesma MD [Primary Care Provider] - 1-2 days Discharge Disposition: - Preliminary Cause of Preliminary Cause of : Right sided pneumonia, probable gram-negative, sepsis with septic shock.
== END 2017-06-19 20:30 | disposition expired | DRG 870 ==
LOC: EC 10:14 → 6SEL 11:54 → 6ICU 06-14 12:58 → 4MS4W 06-19 14:37
PROVIDERS: ADMIT Family Medicine; ATTEND Family Medicine
PROC: 3E0436Z Introduction of Nutritional Substance into Central Vein, Percutaneous Approach (ICD-10-PCS; 2017-06-13)
PROC: 0DH67UZ Insertion of Feeding Device into Stomach, Via Natural or Artificial Opening (ICD-10-PCS; 2017-06-14)
PROC: 0DH68UZ Insertion of Feeding Device into Stomach, Via Natural or Artificial Opening Endoscopic (ICD-10-PCS; 2017-06-14)
PROC: 0BH17EZ Insertion of Endotracheal Airway into Trachea, Via Natural or Artificial Opening (ICD-10-PCS; 2017-06-14)
PROC: 3E0G76Z Introduction of Nutritional Substance into Upper GI, Via Natural or Artificial Opening (ICD-10-PCS; 2017-06-14)
PROC: 0T9B70Z Drainage of Bladder with Drainage Device, Via Natural or Artificial Opening (ICD-10-PCS; 2017-06-14)
PROC: 3E0G76Z Introduction of Nutritional Substance into Upper GI, Via Natural or Artificial Opening (ICD-10-PCS; 2017-06-14)
PROC: 5A1955Z Respiratory Ventilation, Greater than 96 Consecutive Hours (ICD-10-PCS; principal; 2017-06-14 17:06)
PROC: 03HY32Z Insertion of Monitoring Device into Upper Artery, Percutaneous Approach (ICD-10-PCS; 2017-06-15)
PROC: 06HY32Z Insertion of Monitoring Device into Lower Vein, Percutaneous Approach (ICD-10-PCS; 2017-06-15)
DX: A41.50 Gram-negative sepsis, unspecified (principal); R65.21 Severe sepsis with septic shock; J96.92 Respiratory failure, unspecified with hypercapnia; R64 Cachexia; E43 Unspecified severe protein-calorie malnutrition; Z99.11 Dependence on respirator [ventilator] status; J18.9 Pneumonia, unspecified organism; J44.0 Chronic obstructive pulmonary disease with (acute) lower respiratory infection; I42.8 Other cardiomyopathies; K91.2 Postsurgical malabsorption, not elsewhere classified; J96.21 Acute and chronic respiratory failure with hypoxia; J44.1 Chronic obstructive pulmonary disease with (acute) exacerbation; E87.1 Hypo-osmolality and hyponatremia; E87.2 Acidosis; F33.9 Major depressive disorder, recurrent, unspecified; Z99.81 Dependence on supplemental oxygen; Z66 Do not resuscitate; Z51.5 Encounter for palliative care; E87.6 Hypokalemia; G62.9 Polyneuropathy, unspecified; K44.9 Diaphragmatic hernia without obstruction or gangrene; E55.9 Vitamin D deficiency, unspecified; R91.1 Solitary pulmonary nodule; G43.909 Migraine, unspecified, not intractable, without status migrainosus; I49.9 Cardiac arrhythmia, unspecified; R00.2 Palpitations; R00.0 Tachycardia, unspecified; F41.0 Panic disorder [episodic paroxysmal anxiety]; M19.90 Unspecified osteoarthritis, unspecified site; M81.0 Age-related osteoporosis without current pathological fracture; M54.9 Dorsalgia, unspecified; M51.36 Other intervertebral disc degeneration, lumbar region; M50.30 Other cervical disc degeneration, unspecified cervical region; G47.10 Hypersomnia, unspecified; R74.0 Nonspecific elevation of levels of transaminase and lactic acid dehydrogenase [LDH]; R74.8 Abnormal levels of other serum enzymes; F41.1 Generalized anxiety disorder; E03.9 Hypothyroidism, unspecified; K21.9 Gastro-esophageal reflux disease without esophagitis; M79.7 Fibromyalgia; Z87.01 Personal history of pneumonia (recurrent); Z86.14 Personal history of Methicillin resistant Staphylococcus aureus infection; Z79.899 Other long term (current) drug therapy; Z87.891 Personal history of nicotine dependence; Z86.73 Personal history of transient ischemic attack (TIA), and cerebral infarction without residual deficits; Z87.11 Personal history of peptic ulcer disease; Z79.82 Long term (current) use of aspirin; Z82.5 Family history of asthma and other chronic lower respiratory diseases; Z82.49 Family history of ischemic heart disease and other diseases of the circulatory system; Z88.1 Allergy status to other antibiotic agents; Z88.0 Allergy status to penicillin; Z88.2 Allergy status to sulfonamides; Z88.8 Allergy status to other drugs, medicaments and biological substances; Z86.19 Personal history of other infectious and parasitic diseases; Z87.19 Personal history of other diseases of the digestive system; Z68.20 Body mass index [BMI] 20.0-20.9, adult; Z86.79 Personal history of other diseases of the circulatory system; Z84.1 Family history of disorders of kidney and ureter; Z95.828 Presence of other vascular implants and grafts; Z90.49 Acquired absence of other specified parts of digestive tract; Z90.3 Acquired absence of stomach [part of]; Z86.718 Personal history of other venous thrombosis and embolism; Z79.2 Long term (current) use of antibiotics; Z79.83 Long term (current) use of bisphosphonates; Z79.891 Long term (current) use of opiate analgesic; Z79.51 Long term (current) use of inhaled steroids
CPT/HCPCS: 31500; 36415; 36600; 43235; 71010; 71020; 80048; 80053; 80202; 81001; 82040; 82330; 82550; 82553; 82805; 83036; 83605; 83735; 84100; 84132; 84439; 84443; 84478; 84484; 85025; 85027; 85610; 85730; 86738; 87040; 87070; 87086; 87205; 87449; 93005; 94002; 94003; 94640; 94660; 96361; 96365; 96366; 96367; 96375; 99291